=== PATIENT | male | born 1980 | race Caucasian/White ===

== ENCOUNTER 2016-08-28 19:07 | Emergency (ER) | payer OTHER ==
--- NOTE | 2016-08-28 19:44 | EDPHY ---
H & P Stated Complaint: parathyroid surg - new meds causing neuro changes/decreased sleep Time Seen by Provider: 08/28/16 19:44 HPI/ROS: CHIEF COMPLAINT: Abnormal behavior since parathyroid surgery HISTORY OF PRESENT ILLNESS: The patient is brought to the ED by his parents with complaints of abnormal behavior since parathyroid surgery on 08/24. The patient does have a history of psychiatric illness. He is on lithium and Geodon. The patient reportedly has had insomnia over the past 2 nights. He has seemed more confused during the day. The patient reportedly has been drinking large quantities of water. The patient has not been using drugs or alcohol. The parents are his primary caregiver and are with the patient extensively. The patient has had no history of fall or trauma. The patient may have taken twice his typical daily dose of levothyroxine. The patient's pre surgery calcium levels were running in the 11.3-11.4 range. REVIEW OF SYSTEMS: A comprehensive 10 point review of systems is otherwise negative aside from elements mentioned in the history of present illness. Source: Patient Exam Limitations: No limitations - Medical/Surgical History Hx Asthma: No Hx Chronic Respiratory Disease: No Hx Diabetes: No Hx Cardiac Disease: No Hx Renal Disease: No Hx Cirrhosis: No Hx Alcoholism: No Hx HIV/AIDS: No Hx Splenectomy or Spleen Trauma: No Other PMH: BIPOLAR, HYPOTHYROID, parathyroidectomy - Social History Smoking Status: Current every day smoker - Physical Exam Exam: General Appearance: Alert, no distress Eyes: Pupils equal and round no pallor or injection ENT, Mouth: Mucous membranes moist Respiratory: There are no retractions, lungs are clear to auscultation Cardiovascular: Regular rate and rhythm Gastrointestinal: Abdomen is soft and nontender, no masses, bowel sounds normal Neurological: A&O, normal motor function, normal sensory exam, normal cranial nerves Skin: Surgical incision clean dry and intact Musculoskeletal: Neck is supple nontender Extremities: symmetrical, full range of motion Psychiatric: Patient is oriented X 3, flat affect, no suicidal or homicidal ideation Constitutional: Initial Vital Signs Temperature (C) 37.4 C 08/28/16 19:23 Heart Rate 118 H 08/28/16 19:23 Respiratory Rate 16 08/28/16 19:23 Blood Pressure 148/104 H 08/28/16 19:23 O2 Sat (%) 94 08/28/16 19:23 O2 Delivery Mode Room Air Allergies/Adverse Reactions: No Known Allergies Allergy (Verified 08/28/16 19:28) Home Medications: Medication Instructions Recorded Ergocalciferol [Vitamin D2 (*)] 50,000 unit PO Q7D 07/26/16 Levomefolate Calcium 15 mg PO DAILY 07/26/16 [l-Methylfolate Calcium] Levothyroxine [Synthroid 50 mcg 50 mcg PO DAILY06 07/26/16 (*)] [place] Carbonate ER [Lithobid 300 600 mg PO BID #0 tab 08/09/16 mg (*)] Ziprasidone HCl [Geodon] 80 mg PO BID #0 capsule 08/09/16 lamoTRIgine [LamICTAL 100 MG (*)] 300 mg PO HS #0 tab 08/09/16 CALCIUM 08/28/16 MAGNESIUM 08/28/16 Medical Decision Making ED Course/Re-evaluation: The patient presents to the ED with insomnia for the past 2 days after possibly doubling his dose of Synthroid. The patient has had some increased water intake as well as a history of psychiatric medication usage. In the ED, I did check the patient's calcium level given his recent parathyroid surgery and is normal. Additionally, his sodium is normal. The patient's lithium level is also not supratherapeutic. I find the patient's neurologic examination to be normal. He has no evidence of a postoperative infection. It is certainly possible he experienced some mild insomnia from doubling his Synthroid. At this point time I think that he can simply resume his regular dose of the medication. The patient will be discharged home from the emergency department with instructions to follow up with his primary care provider in the next 1-2 days for any unimproved symptoms. He should return to the ED for fever, vomiting, worsening symptoms or other concerns. The patient's parathyroid hormone level is within normal limits. Differential Diagnosis: Differential diagnosis considered includes lithium toxicity, psychogenic hyponatremia, hypocalcemia, hyperthyroidism - Data Points Laboratory Results: Laboratory Results 08/28/16 20:10 08/28/16 20:10 08/28/16 20:10 WBC 15.60 H 10^3/uL (3.80-9.50) RBC 4.84 10^6/uL (4.40-6.38) Hgb 14.0 g/dL (13.7-17.5) Hct 41.7 % (40.0-51.0) MCV 86.2 fL (81.5-99.8) MCH 28.9 pg (27.9-34.1) MCHC 33.6 g/dL (32.4-36.7) RDW 13.8 % (11.5-15.2) Plt Count 421 H 10^3/uL (150-400) MPV 9.9 fL (8.7-11.7) Neut % (Auto) 64.5 % (39.3-74.2) Lymph % (Auto) 26.3 % (15.0-45.0) [place] % (Auto) 6.9 % (4.5-13.0) Eos % (Auto) 1.5 % (0.6-7.6) Baso % (Auto) 0.5 % (0.3-1.7) Nucleat RBC Rel Count 0.0 % (0.0-0.2) Absolute Neuts (auto) 10.06 H 10^3/uL (1.70-6.50) Absolute Lymphs (auto) 4.11 H 10^3/uL (1.00-3.00) Absolute Monos (auto) 1.07 H 10^3/uL (0.30-0.80) Absolute Eos (auto) 0.23 10^3/uL (0.03-0.40) Absolute Basos (auto) 0.08 10^3/uL (0.02-0.10) Absolute Nucleated RBC 0.00 10^3/uL (0-0.01) Immature Gran % 0.3 % (0.0-1.1) Immature Gran # 0.05 10^3/uL (0.00-0.10) Sodium 140 mEq/L (134-144) Potassium 4.5 mEq/L (3.5-5.2) Chloride 104 mEq/L (97-110) Carbon Dioxide 22 mEq/l (22-31) Anion Gap 14 mEq/L (8-16) BUN 16 mg/dL (7-23) Creatinine 0.9 mg/dL (0.7-1.3) Estimated GFR > 60 Glucose 115 H mg/dL (70-100) Calcium 9.7 mg/dL (8.5-10.4) Magnesium 2.1 mg/dL (1.6-2.3) TSH 1.850 uIU/mL (0.465-4.680) Free T3 4.81 pg/mL (2.77-5.27) PTH Intact 25.4 pg/ml (10.8-79.4) [place] 0.3 L mEq/L (0.6-1.2) Departure - Departure Disposition: Home, Routine, Self-Care Clinical Impression: Bipolar 1 disorder, Schizophrenia, Altered mental status Condition: Good Instructions: Schizophrenia (ED) Additional Instructions: 1. Your laboratory testing is within normal limits. 2. Take your medications as prescribed in the normal dose. 3. Return to the ED for markedly worsening symptoms, fever, vomiting or other concerns. 4. Please follow up with your primary prescriber in the next several days for a recheck.
[2016-08-28 20:26] LABS: % IMMATURE GRANULYOCYTES 0.3 % (0.0-1.1); ABSOLUTE IMMATURE GRANULOCYTES 0.05 10^3/uL (0.00-0.10); ADD DIFF? NO; ADD MORPH? NO; ADD SCAN? NO; ATYPICAL LYMPHOCYTE FLAG 10 (0-99); FRAGMENT RBC FLAG 0 (0-99); HEMATOCRIT 41.7 % (40.0-51.0); LEFT SHIFT FLG 0 (0-99); LIPEMIA HEMOLYSIS FLAG 80 (0-99); MEAN CELL HEMOGLOBIN 28.9 pg (27.9-34.1); MEAN CELL HEMOGLOBIN CONCENTR. 33.6 g/dL (32.4-36.7); MEAN CELL VOLUME 86.2 fL (81.5-99.8); MEAN PLATELET VOLUME 9.9 fL (8.7-11.7); PLATELET CLUMPS FLAG 10 (0-99); PLATELET COUNT 421 10^3/uL (150-400); RED BLOOD CELL COUNT 4.84 10^6/uL (4.40-6.38); RED CELL DISTRIBUTION WIDTH 13.8 % (11.5-15.2)
[2016-08-28 20:46] LABS: ANION GAP 14 mEq/L (8-16); CALCIUM 9.7 mg/dL (8.5-10.4); CARBON DIOXIDE 22 mEq/l (22-31); CHLORIDE 104 mEq/L (97-110); CREATININE 0.9 mg/dL (0.7-1.3); GLOMERULAR FILTRATION RATE > 60; GLUCOSE 115 mg/dL (70-100); LITHIUM 0.3 mEq/L (0.6-1.2); MAGNESIUM 2.1 mg/dL (1.6-2.3); POTASSIUM 4.5 mEq/L (3.5-5.2); SODIUM 140 mEq/L (134-144)
[2016-08-28 20:57] LABS: PTH INTACT NO MINERALS 25.4 pg/ml (10.8-79.4)
[2016-08-28 22:05] VITALS: BP 137/86; PULSE 92; RESP 18; TEMP 98.6; O2SAT 95
== END 2016-08-28 22:04 | disposition home or self-care (01) ==
DX: F31.9 Bipolar disorder, unspecified (principal); F20.9 Schizophrenia, unspecified; R41.82 Altered mental status, unspecified; F17.200 Nicotine dependence, unspecified, uncomplicated
CPT/HCPCS: 84481-90

== ENCOUNTER 2016-09-10 13:24 | Inpatient (IN) | payer OTHER ==
[2016-09-10] MEDS: LITHIUM CARBONATE 300 MG CAP PO SCH ×2 (09:00→21:43)
[2016-09-10] MEDS ORDERED: IBUPROFEN 600 MG TAB PO ONE (15:02)
[2016-09-10] MEDS ORDERED: NS 1,000 ML IV ONE (15:04)
--- NOTE | 2016-09-10 15:06 | EDPHY ---
H & P HPI/ROS: Chief complaint. wants psych evaluation HPI. 35-year-old male with history of schizophrenia and bipolar illness with [facility]. He is here with his mom who says for the last several days he has had anxiety and it is hard to make decisions. He becomes agitated. The patient denies suicide or homicidal ideation. He says he is not sick no fever cough. The mom is concerned about medications and that the patient seems to be becoming unstable again at. ROS Constitutional. no fever/chills, no weakness Eyes. no problems with vision ENT. no sore throat, no nasal drainage Cardiovascular. no chest pain Respiratory. no shortness of breath, no cough Abdominal. no abdominal pain, no nausea/vomiting, no diarrhea . no problems urinating MS. no calf pain/swelling, no neck/back pain, no joint pain Skin. no rash Lymph. no swollen glands Neuro. Agitated, hard to make decisions, anxious Past Medical/Surgical History: Past medical history significant for bipolar, hypothyroid, parathyroidectomy, psychosis, schizophrenia, pseudoseizures Social History: Single, daily smoker, no alcohol Smoking Status: Current every day smoker Physical Exam: General Appearance: Alert well-developed male mild distress vital signs show heart rate 123 blood pressure 157/110 Eyes: Pupils equal and round no pallor or injection. ENT, Mouth: Mucous membranes are moist. Respiratory: There are no retractions, lungs are clear to auscultation. Cardiovascular: Regular rate and rhythm. Gastrointestinal: Abdomen is soft and nontender, no masses, bowel sounds normal. Neurological: Awake and alert, sensory and motor exams grossly normal. Skin: Warm and dry, no rashes. Musculoskeletal: Neck is supple nontender. Extremities symmetrical, full range of motion. Psychiatric: Patient is oriented X 3, there is no agitation. Constitutional: Initial Vital Signs Temperature (C) 37 C 09/10/16 13:30 Heart Rate 123 H 09/10/16 13:30 Respiratory Rate 22 H 09/10/16 13:30 Blood Pressure 157/110 H 09/10/16 13:30 O2 Sat (%) 98 09/10/16 13:30 O2 Delivery Mode Room Air Allergies/Adverse Reactions: No Known Allergies Allergy (Verified 09/10/16 13:26) Home Medications: Medication Instructions Recorded Ergocalciferol [Vitamin D2 (*)] 50,000 unit PO Q7D 11/29/16 Levomefolate Calcium 15 mg PO DAILY 07/26/16 [l-Methylfolate Calcium] Levothyroxine [Synthroid 50 mcg 50 mcg PO DAILY06 07/26/16 (*)] [place] Carbonate ER [Lithobid 300 600 mg PO BID #0 tab 08/09/16 mg (*)] Ziprasidone HCl [Geodon] 80 mg PO BID #0 capsule 08/09/16 lamoTRIgine [LamICTAL 100 MG (*)] 300 mg PO HS #0 tab 08/09/16 CALCIUM 08/28/16 MAGNESIUM 08/28/16 Ativan 09/10/16 Levomefolate/Algal Oil 1 each PO 09/10/16 [[place]-Algal Oil 7.5 mg Cap] RESTORIL 09/10/16 Medical Decision Making - Diagnostics EKG Interpretation: EKG interpreted by me shows sinus tachycardia with normal interval and axis. QRS normal there is no significant ST elevation or depression. No arrhythmia. Ventricular response is 108 Procedures: IV normal saline. Initial 1 L of saline ordered ED Course/Re-evaluation: Re-evaluation at 4:40 p.m.. Patient is stable. Patient and I discussed his labs. We agreed on a mental health evaluation. Mental Health is called to evaluate Mental health has evaluated the patient and then they feel that he is gravely disabled. We have put the patient on an M1 hold and they a will admit him to [facility] Differential Diagnosis: Substance intoxication, withdrawal, exacerbation of chronic mental health issues - Data Points Laboratory Results: Laboratory Results 09/10/16 15:15 09/10/16 15:15 09/10/16 09/10/16 16:15 15:15 WBC 17.65 H 10^3/uL (3.80-9.50) RBC 4.71 10^6/uL (4.40-6.38) Hgb 14.0 g/dL (13.7-17.5) Hct 41.1 % (40.0-51.0) MCV 87.3 fL (81.5-99.8) MCH 29.7 pg (27.9-34.1) MCHC 34.1 g/dL (32.4-36.7) RDW 13.3 % (11.5-15.2) Plt Count 488 H 10^3/uL (150-400) MPV 9.5 fL (8.7-11.7) Neut % (Auto) 73.5 % (39.3-74.2) Lymph % (Auto) 20.2 % (15.0-45.0) [place] % (Auto) 4.5 % (4.5-13.0) Eos % (Auto) 1.0 % (0.6-7.6) Baso % (Auto) 0.5 % (0.3-1.7) Nucleat RBC Rel Count 0.0 % (0.0-0.2) Absolute Neuts (auto) 12.96 H 10^3/uL (1.70-6.50) Absolute Lymphs (auto) 3.56 H 10^3/uL (1.00-3.00) Absolute Monos (auto) 0.80 10^3/uL (0.30-0.80) Absolute Eos (auto) 0.18 10^3/uL (0.03-0.40) Absolute Basos (auto) 0.09 10^3/uL (0.02-0.10) Absolute Nucleated RBC 0.00 10^3/uL (0-0.01) Immature Gran % 0.3 % (0.0-1.1) Immature Gran # 0.06 10^3/uL (0.00-0.10) VBG Lactic Acid 1.3 mmol/L (0.7-2.1) Sodium 141 mEq/L (134-144) Potassium 4.7 mEq/L (3.5-5.2) Chloride 104 mEq/L (97-110) Carbon Dioxide 23 mEq/l (22-31) Anion Gap 14 mEq/L (8-16) BUN 17 mg/dL (7-23) Creatinine 1.0 mg/dL (0.7-1.3) Estimated GFR > 60 Glucose 95 mg/dL (70-100) Calcium 10.1 mg/dL (8.5-10.4) TSH 1.320 uIU/mL (0.465-4.680) Urine Opiates Screen NEGATIVE (NEGATIVE) Acetaminophen < 10 L mcg/mL (10.0-30.0) Urine Barbiturates NEGATIVE (NEGATIVE) Ur Phencyclidine Scrn NEGATIVE (NEGATIVE) Ur Amphetamine Screen NEGATIVE (NEGATIVE) U Benzodiazepines Scrn NON-NEGATIVE H (NEGATIVE) [place] 0.8 mEq/L (0.6-1.2) Urine Cocaine Screen NEGATIVE (NEGATIVE) U Marijuana (THC) Screen NEGATIVE (NEGATIVE) Ethyl Alcohol < 10 mg/dL (0-10) Medications Given: Discontinued Medications Sodium Chloride (Ns) 1,000 mls @ 0 mls/hr IV ONCE ONE PRN Reason: Wide [place] Stop: 09/10/16 15:05 Last Admin: 09/10/16 15:25 Dose: 1,000 mls Departure - Departure Disposition: [facility] IP Clinical Impression: Acute psychosis Schizophrenia Qualifiers: Schizophrenia type: other Qualifier Code: (F20.89) Other schizophrenia Condition: Fair
[2016-09-10 15:33] LABS: % IMMATURE GRANULYOCYTES 0.3 % (0.0-1.1); ABSOLUTE IMMATURE GRANULOCYTES 0.06 10^3/uL (0.00-0.10); ADD DIFF? NO; ADD MORPH? NO; ADD SCAN? NO; ATYPICAL LYMPHOCYTE FLAG 0 (0-99); FRAGMENT RBC FLAG 0 (0-99); HEMATOCRIT 41.1 % (40.0-51.0); LEFT SHIFT FLG 0 (0-99); LIPEMIA HEMOLYSIS FLAG 90 (0-99); MEAN CELL HEMOGLOBIN 29.7 pg (27.9-34.1); MEAN CELL HEMOGLOBIN CONCENTR. 34.1 g/dL (32.4-36.7); MEAN CELL VOLUME 87.3 fL (81.5-99.8); MEAN PLATELET VOLUME 9.5 fL (8.7-11.7); PLATELET CLUMPS FLAG 0 (0-99); PLATELET COUNT 488 10^3/uL (150-400); RED BLOOD CELL COUNT 4.71 10^6/uL (4.40-6.38); RED CELL DISTRIBUTION WIDTH 13.3 % (11.5-15.2)
--- NOTE | 2016-09-10 15:36 | CPEKG ---
Heart Rate: 108 RR Interval: 556 P-R Interval: 156 QRSD Interval: 86 QT Interval: 344 QTC Interval: 461 P [place]: 69 QRS [place]: 85 T Wave [place]: 41 EKG Severity - BORDERLINE ECG - EKG Impression: SINUS TACHYCARDIA EKG Impression: PROBABLE LEFT ATRIAL ABNORMALITY Electronically Signed By: Chuck Novoa 10-Sep-2016 17:24:23
[2016-09-10 16:11] LABS: ANION GAP 14 mEq/L (8-16); CALCIUM 10.1 mg/dL (8.5-10.4); CARBON DIOXIDE 23 mEq/l (22-31); CHLORIDE 104 mEq/L (97-110); ETHANOL SERUM < 10 mg/dL (0-10); GLOMERULAR FILTRATION RATE > 60; GLUCOSE 95 mg/dL (70-100); LITHIUM 0.8 mEq/L (0.6-1.2); POTASSIUM 4.7 mEq/L (3.5-5.2); SODIUM 141 mEq/L (134-144)
[2016-09-10] MEDS ORDERED: NICOTINE POLACRILEX 2 MG GUM B PRN (21:08)
[2016-09-10] MEDS ORDERED: MAGNESIUM HYDROXIDE 30 ML UDCUP PO PRN (21:08)
[2016-09-10] MEDS ORDERED: ACETAMINOPHEN 325 MG TAB PO PRN (21:08)
[2016-09-10] MEDS ORDERED: MAG HYDROX/AL HYDROX/SIMETH 30 ML UDCUP PO PRN (21:08)
[2016-09-10] MEDS ORDERED: OLANZapine DISINTEGR 10 MG TAB PO PRN (21:08)
[2016-09-10] MEDS ORDERED: LORazepam 0.5 MG TAB PO PRN (21:08)
[2016-09-10] MEDS: ZIPRASIDONE HCL 40 MG CAP PO SCH (21:43)
[2016-09-10] MEDS: lamoTRIgine 100 MG TAB PO SCH (21:43)
[2016-09-11] MEDS ORDERED: MAG HYDROX/AL HYDROX/SIMETH 30 ML UDCUP PO PRN (00:42)
[2016-09-11] MEDS ORDERED: OLANZapine DISINTEGR 10 MG TAB PO PRN (00:42)
[2016-09-11] MEDS ORDERED: NICOTINE POLACRILEX 2 MG GUM B PRN (00:42)
[2016-09-11] MEDS ORDERED: LORazepam 0.5 MG TAB PO PRN (00:42)
[2016-09-11] MEDS ORDERED: MAGNESIUM HYDROXIDE 30 ML UDCUP PO PRN (00:42)
[2016-09-11] MEDS ORDERED: ACETAMINOPHEN 325 MG TAB PO PRN (00:42)
[2016-09-11] MEDS ORDERED: LEVOTHYROXINE 50 MCG TAB PO SCH (06:00)
[2016-09-11] MEDS: LEVOMEFOLATE CALCIUM 15 MG PO SCH (08:44)
[2016-09-11] MEDS: ZIPRASIDONE HCL 40 MG CAP PO SCH ×2 (08:51→20:54)
[2016-09-11] MEDS: lamoTRIgine 100 MG TAB PO SCH ×2 (08:51→20:54)
[2016-09-11] MEDS: LEVOTHYROXINE 50 MCG TAB PO SCH (08:53)
[2016-09-11] MEDS ORDERED: LEVOMEFOLATE CALCIUM 15 MG PO SCH (09:00)
--- NOTE | 2016-09-11 10:25 | GCON ---
[f rep st] CONSULTATION DATE OF CONSULTATION: 09/11/2016 REFERRING PHYSICIAN: Shi Parker MD REASON FOR CONSULTATION: Medical evaluation in the psychiatric unit. HISTORY OF PRESENT ILLNESS: This is a 35-year-old male with a known psychiatric history of bipolar t ype 1, psychosis, and schizophrenia, who possibly stopped taking his medications and became more agit ated and confused. His mother presented him for evaluation and he was admitted through the emergency department to the behavioral health unit. I am interviewing the patient on the psychiatric unit. Loc lindsay is mildly confused, says he has memory problems and cannot remember, but admits that he probably st opped taking his medications. Medically, he denies any recent or acute illness. He denies sore throat, cough, fever, shortness of breath, or chest pain. He denies any head trauma, recent seizures. PAST MEDICAL HISTORY: 1. Bipolar disorder type 1. 2. Schizophrenia. 3. History of parathyroid disease and a recent parathyroidectomy in the last few months. The patien ronaldo cannot tell me where or when this occurred, but there is an apparent scar over his thyroid for this problem. 4. He has a history of alcohol abuse. PAST SURGICAL HISTORY: Recent parathyroid adenoma removal. Time and place of this surgery is unknow n. ALLERGIES: None. FAMILY HISTORY: Positive for alcoholism, depression, and bipolar disorder. SOCIAL HISTORY: Tobacco is used, approximately 1/2-pack cigarettes a day. Drugs: The patient denie s regular drug abuse, but does use marijuana on occasion. He denies the use of cocaine. He also den ies the use of LSD or methamphetamine. The tox screen was positive for benzodiazepines on admission. REVIEW OF SYSTEMS: A 10-point review of systems is entirely negative. He specifically denies a rece nt cold, cough, sinus infection, sore throat, fever, chills, sweats. He admits to eating well. Thony es any chronic cardiovascular, pulmonary, or gastrointestinal disorders. MEDICATIONS: Listed on the EMR. His usual outpatient medications would include Geodon, Lamictal, li thium, Synthroid, and methyl folate. PHYSICAL EXAMINATION: GENERAL: This is a pleasant, quiet gentleman, who appears in no distress. He is alert and oriented x3, but cannot give specific answers to medical questions. VITAL SIGNS: He i s mildly hypertensive with blood pressures between 150 and 160 over 80 to 100 diastolic. Blood press ure was higher on admission and is declining slightly. He is afebrile. He has a mild resting tachyc ardia. Respirations are normal and he is afebrile. HEENT: Shows his tympanic membranes are ochoa bi laterally. Throat is benign, with the tongue and buccal mucosa appearing normal, without trauma. Th ere is no erythema or inflammation or exudate. Nasal passages are clear without drainage. Teeth are in good repair. NECK: Supple without meningismus. Neck region shows a 2 cm scar over the thyroid region, which is healing well and nontender. Thyroid cannot be palpated. There are no areas of tend erness or adenopathy. CHEST WALL: Nontender to palpation. LUNGS: Clear to P and A without wheezin g or rales. HEART: Singular S1 and S2. No murmur, gallop, or rub. He is in a regular rate and rhy thm. ABDOMEN: Slightly overweight. Normoactive bowel sounds. No masses, tenderness, or organomega ly. The liver is nontender and the right upper quadrant nontender. EXTREMITIES: No edema, cyanosis , clubbing. Joints are without inflammation or signs of trauma. No track carrizales are noted on the ski n. NEUROLOGIC: He is an oriented x3 male. Cranial nerves 2-12 are intact to specific testing. LABORATORY DATA: Shows a mild elevated white count at 17,000. Lactic acid was normal on admission. Chemistry panel is also normal and a TSH is normal at 1.3. Calcium is within normal range also at 1 0.1. Toxicology is positive for benzodiazepines, but otherwise negative for alcohol, acetaminophen. His lithium is within the normal range at 0.8. ASSESSMENT: 1. Acute psychiatric disorder with agitation and some paranoid delusions. This is likely secondary to noncompliance with his medication. The patient has been admitted on the behavioral health unit. 2. Mild hypertension. This is unexplained as he has no history of the same. He also has a resting tachycardia with that. This could be secondary to agitation, although at this time the patient haim crowley does not appear to be agitated. For the next 24 hours, I would watch his blood pressure, repea t it, and will treat if necessary. 3. Leukocytosis with an elevated WBC of 17,000. This is also unexplained as he is afebrile and yareli quintero does not appear to have any acute infection. It could be an acute stress response, a leukemoi d response. I suggest we watch his temperature, along with his blood pressure, and we will repeat a CBC and I will follow up. A flu swab will also be obtained to just assure that we do not have an acu te flu illness on the unit. 4. He has a history of parathyroid disease. Today, his calcium is normal and his TSH is normal. I think these problems are now stable. 5. History of medical noncompliance. 6. The patient is medically cleared for his stay on the behavioral health unit. I will follow along with you regarding his hypertension, tachycardia, leukocytosis, and follow up on the flu swab result s. TIME: This consultation required greater than 40 minutes. /[id number]/MODL
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
[2016-09-11] MEDS: LITHIUM CARBONATE 300 MG CAP PO SCH (20:53)
[2016-09-12] MEDS: lamoTRIgine 100 MG TAB PO SCH ×2 (08:39→17:27)
[2016-09-12] MEDS: LITHIUM CARBONATE 300 MG CAP PO SCH ×2 (08:39→17:27)
[2016-09-12] MEDS: ZIPRASIDONE HCL 40 MG CAP PO SCH ×2 (08:39→17:28)
[2016-09-12 09:19] LABS: % IMMATURE GRANULYOCYTES 0.3 % (0.0-1.1); ABSOLUTE IMMATURE GRANULOCYTES 0.04 10^3/uL (0.00-0.10); ADD DIFF? NO; ADD MORPH? NO; ADD SCAN? NO; ATYPICAL LYMPHOCYTE FLAG 10 (0-99); FRAGMENT RBC FLAG 0 (0-99); HEMATOCRIT 41.8 % (40.0-51.0); HEMOGLOBIN 13.2 g/dL (13.7-17.5); LEFT SHIFT FLG 0 (0-99); LIPEMIA HEMOLYSIS FLAG 80 (0-99); MEAN CELL HEMOGLOBIN 28.9 pg (27.9-34.1); MEAN CELL HEMOGLOBIN CONCENTR. 31.6 g/dL (32.4-36.7); MEAN CELL VOLUME 91.7 fL (81.5-99.8); PLATELET CLUMPS FLAG 0 (0-99); PLATELET COUNT 433 10^3/uL (150-400); RED BLOOD CELL COUNT 4.56 10^6/uL (4.40-6.38); RED CELL DISTRIBUTION WIDTH 13.7 % (11.5-15.2)
[2016-09-12] MEDS: LEVOTHYROXINE 50 MCG TAB PO SCH (10:34)
--- NOTE | 2016-09-12 10:49 | SOAPPROG ---
SOAP Progress Note Assessment/Plan: Assessment: Pt is a 35 y/o S male with a sx of Schizophrenia (although he has been dx with Bipolar D/O and SAD) who was brought to the ED by his parents for increased confusion and a medication evaluation. Pt was put on an M1 for grave disability. He is reporting command AH. Plan:Pt is on maximum dose of Geodon will reach out to Dr Paul who treats pt to get med suggestions will check VPA and Lamotrigine levels in am 09/12/16 10:44 Subjective: "The meds make me tired." Objective: Vital Signs Temp Pulse Resp BP Pulse Ox 36.7 C 112 H 16 113/79 97 09/12/16 05:55 09/12/16 05:55 09/12/16 05:55 09/12/16 05:55 09/12/16 05:55 Laboratory Results 09/12/16 03:05 Pt is A+O x4 lying in bed, not attending groups mood-"A little depressed" affect-flat +AH but reports they are decreased + thought blocking denies S/H I denies Par I speech-monotone thoughts-thought blocking slept 7 hours energy level-varies memory/conc-impaired due to psychosis no SANDIP I/J-fair - Time Spent With Patient Time Spent With Patient: 20' - Pending Discharge Pending Discharge Within 24 Hours: No Pending Discharge Within 48 Hours: No ICD10 Worksheet Patient Problems: Problems Problem Status Diagnosed Acute psychosis Acute Schizophrenia Acute Altered mental status Acute Bipolar 1 disorder Acute
[2016-09-12] MEDS: LEVOMEFOLATE CALCIUM 15 MG PO SCH (10:53)
--- NOTE | 2016-09-12 15:27 | HOSPPROG ---
Hospitalist Progress Note Assessment/Plan: 35-year-old male admitted to the behavioral health unit. Initial laboratories noted a leukocytosis and hypertension. The flu screen was negative in the WBC is now declining nicely blood pressure is declining also without treatment. A strep screen has been ordered to assure that there is no acute infection. Patient is afebrile. I will review the results of the strep screen and follow his blood pressure again. I will follow along with you. No antibiotics will be ordered at this time or antihypertensives. Objective: Vital Signs Temp Pulse Resp BP Pulse Ox 36.6 C 101 H 13 129/83 H 98 09/12/16 11:44 09/12/16 11:44 09/12/16 11:44 09/12/16 11:44 09/12/16 11:44 Laboratory Results 09/12/16 03:05 ICD10 Worksheet Patient Problems: Problems Problem Status Diagnosed Acute psychosis Acute Schizophrenia Acute Altered mental status Acute Bipolar 1 disorder Acute
[2016-09-13] MEDS: LEVOMEFOLATE CALCIUM 15 MG PO SCH (08:45)
[2016-09-13] MEDS: ZIPRASIDONE HCL 40 MG CAP PO SCH ×2 (08:45→20:42)
[2016-09-13] MEDS: lamoTRIgine 100 MG TAB PO SCH ×2 (08:45→20:42)
[2016-09-13] MEDS: LITHIUM CARBONATE 300 MG CAP PO SCH ×2 (08:45→20:43)
[2016-09-13] MEDS: LEVOTHYROXINE 50 MCG TAB PO SCH (08:56)
[2016-09-13 09:01] LABS: LITHIUM 0.5 mEq/L (0.6-1.2)
--- NOTE | 2016-09-13 10:54 | SOAPPROG ---
SOAP Progress Note Assessment/Plan: Assessment: Pt is a 35 y/o S male with a sx of Schizophrenia (although he has been dx with Bipolar D/O and SAD) who was brought to the ED by his parents for increased confusion and a medication evaluation. Pt was put on an M1 for grave disability. He is reporting command AH. 09/13/16-pt will sign in vol and reports much decreased AH and seems better Plan:Pt is on maximum dose of Geodon will reach out to Dr Paul who treats pt to get med suggestions will check VPA and Lamotrigine levels drawn pt will sign in vol 09/13/16 10:51 Subjective: "Better." Objective: Vital Signs Temp Pulse Resp BP Pulse Ox 36.7 C 97 16 121/77 H 98 09/13/16 00:30 09/13/16 00:30 09/13/16 00:30 09/13/16 00:30 09/13/16 00:30 Laboratory Results 09/12/16 03:05 Pt is A+O x4 pacing the halls mood-"better" affect-flat much decreased AH thoughts-poverty of thought content speech-monotone slept 6.5 hours appetite-wnl denies VH No delusions memory/conc-fair no SANDIP no S/H I I/J-fair - Time Spent With Patient Time Spent With Patient: 20' - Pending Discharge Pending Discharge Within 24 Hours: No Pending Discharge Within 48 Hours: Yes Pending Discharge Date: 09/15/16 Pending Discharge Time: 11:00 ICD10 Worksheet Patient Problems: Problems Problem Status Diagnosed Acute psychosis Acute Schizophrenia Acute Altered mental status Acute Bipolar 1 disorder Acute
[2016-09-14 01:40] VITALS: BP 132/85; PULSE 113; RESP 16; TEMP 98.1; O2SAT 96
[2016-09-14] MEDS: ZIPRASIDONE HCL 40 MG CAP PO SCH (08:48)
[2016-09-14] MEDS: lamoTRIgine 100 MG TAB PO SCH (08:48)
[2016-09-14] MEDS: LITHIUM CARBONATE 300 MG CAP PO SCH (08:49)
[2016-09-14] MEDS: LEVOMEFOLATE CALCIUM 15 MG PO SCH (08:49)
[2016-09-14] MEDS: LEVOTHYROXINE 50 MCG TAB PO SCH (08:58)
--- NOTE | 2016-09-14 11:57 | BDS ---
[ rep st] BEHAVIORAL HEALTH DISCHARGE SUMMARY CHIEF COMPLAINT: "I am feeling a little weird." When asked why the patient came to the hospital, he states, "I forgot." HISTORY OF PRESENT ILLNESS: The patient is a 35-year-old single male who had a previous admission on [address] from 07/27/2016 to 08/09/2016. The patient reports his parents who reside in [place] have been staying with him since then on and off. The patient's parents brought the patient to the ED due to concerns of decompensation and fear that his medications were not working properly. It is unclear whether he missed some doses. The patient had difficulty responding to the [facility] termite control representative and demonstrated pressured speech and confusion. He could not fill out the BDI or other scales. He has been trying to drive himself in places while confused and distracted, and his parents took his keys away. DIAGNOSES ON ADMISSION: Chronic schizophrenia with acute exacerbation; history of alcohol use disorder, moderate; history of parathyroid surgery recently. He is currently on Synthroid. [place] V on admission was 20. HOSPITAL COURSE: The patient was continued on his outpatient medications, lithium 600 mg twice daily, Geodon 80 mg twice daily, and Lamictal 200 mg twice daily. At first, the patient was reporting command auditory hallucinations, but as he stayed, over the next couple days, he reported the voices had decreased only to occasional. The patient denied suicidal ideation throughout his hospitalization. He denied paranoid ideation throughout his hospitalization. He was eating and sleeping well. He isolated and had a flat affect consistent with schizophrenia, and did not attend groups and often paced the halls. His parents visited, and they felt he was ready for discharge on the day of discharge. He signed in voluntarily when his M1 , as he did not meet criteria for a cert. The patient requested discharge and denied any side effects from medications. Stated he was feeling back to himself. MENTAL STATUS ON DISCHARGE: The patient is alert and oriented x4. Mood is euthymic. Affect is constricted. Patient denies auditory or visual hallucinations. Denies suicidal or homicidal ideation. Denies paranoid ideation. Reports sleep, appetite, and energy level are normal. Thoughts: Poverty of thought content. Speech is monotone. Memory is fair. Insight and judgment are fair. DIAGNOSIS ON DISCHARGE: Chronic schizophrenia with acute exacerbation; history of alcohol use disorder, moderate; history of parathyroid surgery recently. He is currently on Synthroid. [place] V on admission was 20. Global Assessment of Functioning on discharge is 50. DISCHARGE MEDICATIONS: [place] 600 mg twice daily, Geodon 80 mg twice daily, Lamictal 200 mg twice daily. DISCHARGE PLAN: Patient will follow up with Dr. Paul. He will be picked up by his parents, and will be watched by his parents and will return to his apartment. Patient is medically and psychiatrically stable for discharge and was discharged voluntarily. /[id number]/MODL MTDD
== END 2016-09-14 12:45 | disposition home or self-care (01) | DRG 885 ==
LOC: BBEH 09-11 00:25
PROVIDERS: ADMIT Psychiatry & Neurology Psychiatry; ATTEND Psychiatry & Neurology Psychiatry
DX: F23 Brief psychotic disorder (principal); F31.9 Bipolar disorder, unspecified; E03.9 Hypothyroidism, unspecified; F17.210 Nicotine dependence, cigarettes, uncomplicated; F10.21 Alcohol dependence, in remission; Z91.128 Patient's intentional underdosing of medication regimen for other reason
CPT/HCPCS: 80175-90; 80305; G0480

== ENCOUNTER 2017-06-08 12:17 | Inpatient (IN) | payer OTHER ==
[2017-06-08 12:48] LABS: % IMMATURE GRANULYOCYTES 0.3 % (0.0-1.1); ABSOLUTE IMMATURE GRANULOCYTES 0.05 10^3/uL (0.00-0.10); ADD DIFF? NO; ADD MORPH? NO; ADD SCAN? NO; ATYPICAL LYMPHOCYTE FLAG 20 (0-99); FRAGMENT RBC FLAG 10 (0-99); HEMATOCRIT 42.5 % (40.0-51.0); HEMOGLOBIN 14.3 g/dL (13.7-17.5); LEFT SHIFT FLG 0 (0-99); LIPEMIA HEMOLYSIS FLAG 80 (0-99); MEAN CELL HEMOGLOBIN 30.1 pg (27.9-34.1); MEAN CELL HEMOGLOBIN CONCENTR. 33.6 g/dL (32.4-36.7); MEAN CELL VOLUME 89.5 fL (81.5-99.8); MEAN PLATELET VOLUME 9.9 fL (8.7-11.7); PLATELET CLUMPS FLAG 30 (0-99); PLATELET COUNT 480 10^3/uL (150-400); RED BLOOD CELL COUNT 4.75 10^6/uL (4.40-6.38); RED CELL DISTRIBUTION WIDTH 13.2 % (11.5-15.2)
--- NOTE | 2017-06-08 13:04 | EDPHY ---
General - History Smoking Status: Current every day smoker Narrative: CHIEF COMPLAINT: M1, decompensated bipolar HISTORY OF PRESENT ILLNESS: Patient presents on an M1 hold due to reports of bipolar disorder with decompensation acute psychosis. Patient denies any of this and feels that he has been doing well, but there is documentation from his psychiatrist and family that he has been manic, presenting with normal speech, and not taking his medications. Patient says that he has no complaints of any kind and feels that he has done well on only missed 1 dose of his lithium with the past 2 weeks. He denies any suicidal ideation. He denies a sleepless nights. He denies any complaints of any kind. No modifying factors from the patient. He arrives on an M1 hold and is calm and cooperative. PSYCHIATRIC DIAGNOSES: Bipolar disorder PRIOR PSYCHIATRIC EVALUATIONS: Multiple. Most recently June 2016 M1/DETAINER: Dr. Paul today at 9:30 a.m. REVIEW OF SYSTEMS: Ten systems reviewed and are negative unless otherwise noted in the HPI EXAMINATION General Appearance: Alert, no distress, relaxed, normal speech Head: normocephalic, atraumatic Eyes: Pupils equal and round, no conjunctival pallor or injection ENT, Mouth: Mucous membranes moist. Uvula midline. Normal speech. No trismus. Neck: Normal inspection, supple, non-tender Respiratory: Lungs are clear to auscultation Cardiovascular: Regular rate and rhythm. No murmur Gastrointestinal: Abdomen is soft and nontender Back: non-tender, no bony abnormalities Neurological: GCS 15. A&O, nonfocal, normal gait. Strength is symmetric. No pronator drift. No dysmetria Skin: Warm and dry, no rash Extremities: Nontender, no pedal edema Psychiatric: Flat affect. Denies suicidal ideation or homicidal ideation. DIFFERENTIAL DIAGNOSES: Including but not limited to bipolar disorder with decompensation, manic episode , acute psychosis, dehydration, sub therapeutic lithium MDM: 1:00 p.m. M1 hold due to bipolar disorder with acute decompensation per his psychiatrist. The patient appears calm and cooperative at this time. Parents are not at bedside at this time. I will discuss further with them when they return. Psychiatrist expressed concern due to abnormal speech during his examination, thus I will obtain a CT scan of the head. I do not appreciate this at this time. Laboratory studies are pending for clearance. [place] level pending. 1:47 p.m. Laboratory studies are negative for any significant abnormalities. There is a mild leukocytosis. [place] level is therapeutic. Lamictal level is a send out referral laboratory study. CT scan pending. 2:[address] p[address] Notified by radiologist. CT scan unremarkable for any acute findings. 2:30 p.m. EPS has been notified. Patient will be evaluated for inpatient placement. 4:30 p.m. Patient still awaiting evaluation. 5:15 p.m. . at this time I have discussed the care with Dr. Fitzgerald. He will assume care the patient. The patient is pending evaluation and placement. He is in no acute distress. SUPERVISION: Patient was evaluated in conjunction with the supervising physician. Please see their note for details. (Edy Hernandez) Medical Decision Makin:50 p.m. the patient has been accepted by [address]. I will complete transfer paperwork. (José Fitzgerald) - Objective Vital Signs: Initial Vital Signs Temperature (C) 97.7 F 06/08/17 12:21 Heart Rate 99 06/08/17 12:21 Respiratory Rate 18 06/08/17 12:21 Blood Pressure 124/86 H 06/08/17 12:21 O2 Sat (%) 97 06/08/17 12:21 O2 Delivery Mode Room Air Allergies/Adverse Reactions: No Known Allergies Allergy (Verified 09/10/16 13:26) Home Medications: Medication Instructions Recorded Benztropine Mesylate [Cogentin 1 mg PO BID 06/08/17 (RX)] Benztropine Mesylate [Cogentin 1 mg PO BID PRN 06/08/17 (RX)] Cholecalciferol Vit D3 [Vitamin D3 1,000 units PO DAILY 06/08/17 (*)] LORazepam [Ativan (*)] 1 mg PO HS 06/08/17 Levomefolate/Algal Oil 1 each PO DAILY 06/08/17 [[place]pl[place]-Algal Oil 15 mg Capsule] Levothyroxine [Synthroid 50 mcg 50 mcg PO DAILY06 06/08/17 (*)] [place] Carbonate ER [Eskalith Cr 900 mg PO BID 06/08/17 450 mg (*)] Propranolol HCl [Inderal 40mg (*)] 40 mg PO BID 06/08/17 Venlafaxine Xr [Effexor Xr] 300 mg PO DAILY 06/08/17 lamoTRIgine [LamICTAL 100 MG (*)] 525 mg PO HS 06/08/17 Laboratory Results: Laboratory Results 06/08/17 12:40 06/08/17 12:40 Medications Given: Benztropine Mesylate (Cogentin) 1 mg PO BID [facility] Stop: 12/05/17 21:54 Last Admin: 06/09/17 08:33 Dose: 1 mg Cholecalciferol (Vitamin D) 1,000 units PO DAILY [facility] Stop: 12/06/17 08:59 Last Admin: 06/09/17 08:33 Dose: 1,000 units [place] Carbonate (Lithobid) 600 mg PO BID [facility] Stop: 12/05/17 21:54 Last Admin: 06/09/17 08:32 Dose: 600 mg Lorazepam (Ativan) 1 mg PO HS [facility] Stop: 12/05/17 21:54 Last Admin: 06/09/17 05:25 Dose: Not Given Miscellaneous Medication (Levomefolate/Algal Oil [[place]-Algal Oil 15 Mg Capsule ]) 1 each PO DAILY TARYN Stop: 12/06/17 08:59 Last Admin: 06/09/17 08:38 Dose: Not Given Propranolol HCl (Inderal) 40 mg PO BID [facility] Stop: 12/05/17 21:54 Last Admin: 06/09/17 08:32 Dose: 40 mg Risperidone (Risperdal) 1 mg PO BID [facility] Stop: 12/06/17 08:59 Last Admin: 06/09/17 08:33 Dose: 1 mg Venlafaxine HCl (Effexor Xr) 300 mg PO DAILY [facility] Stop: 12/06/17 08:59 Last Admin: 06/09/17 08:33 Dose: 300 mg Discontinued Medications Lamotrigine (Lamictal) 525 mg PO HS [facility]ARYN Stop: 12/05/17 21:54 Last Admin: 06/09/17 05:26 Dose: Not Given [place] Carbonate (Eskalith Cr) 900 mg PO BID [facility] Stop: 12/05/17 21:54 Last Admin: 06/09/17 05:26 Dose: Not Given Departure - Departure Disposition: [facility] IP Clinical Impression: Bipolar 1 disorder, Acute psychosis Condition: Fair
[2017-06-08 13:06] LABS: ANION GAP 14 mEq/L (8-16); CALCIUM 10.1 mg/dL (8.5-10.4); CARBON DIOXIDE 22 mEq/l (22-31); CHLORIDE 104 mEq/L (97-110); CREATININE 0.8 mg/dL (0.7-1.3); ETHANOL SERUM < 10 mg/dL (0-10); GLOMERULAR FILTRATION RATE > 60; GLUCOSE 89 mg/dL (70-100); LITHIUM 0.6 mEq/L (0.6-1.2); POTASSIUM 4.5 mEq/L (3.5-5.2); SALICYLATE < 1.0 mg/dL (2.0-20.0); SODIUM 140 mEq/L (134-144)
[2017-06-08] MEDS ORDERED: BENZTROPINE MESYLATE 1 MG TAB PO PRN (21:55)
[2017-06-08] MEDS ORDERED: LITHIUM CARBONATE ER 450 MG TAB PO SCH (21:55)
[2017-06-08] MEDS ORDERED: MAGNESIUM HYDROXIDE 30 ML UDCUP PO PRN (21:55)
[2017-06-08] MEDS ORDERED: lamoTRIgine 100 MG TAB PO SCH ×2 (21:55→22:56)
[2017-06-08] MEDS ORDERED: LORazepam 0.5 MG TAB PO PRN (21:55)
[2017-06-08] MEDS ORDERED: NICOTINE POLACRILEX 2 MG GUM B PRN (21:55)
[2017-06-08] MEDS ORDERED: MAG HYDROX/AL HYDROX/SIMETH 30 ML UDCUP PO PRN (21:55)
[2017-06-08] MEDS ORDERED: ACETAMINOPHEN 325 MG TAB PO PRN (21:55)
[2017-06-09] MEDS: BENZTROPINE MESYLATE 1 MG TAB PO SCH ×3 (05:25→19:20)
[2017-06-09] MEDS: LORazepam 1 MG TAB PO SCH ×2 (05:25→19:20)
[2017-06-09] MEDS: PROPRANOLOL HCL 20 MG TAB PO SCH ×3 (05:25→19:20)
--- NOTE | 2017-06-09 07:43 | PDHOSCONS ---
Hospitalist Consult Hospitalist Consult: CC: Uncontrolled symptoms of bipolar disorder HISTORY: This patient with a long history of known bipolar disorder was having worsening symptoms but despite treatment. He came into the ER and has now been admitted to the mental health unit. I am asked by the mental health team to assist in the care of this patient on the Behavioral Health Unit. The patient states he has no particular symptoms of any physical illness at this time and feels quite well. His only issues are his thought disorder which she describes in terms consistent with his previous bipolar disorder. ROS: A comprehensive 10 system review revealed no other significant findings. There is a history of parathyroid disease which I presume was probably overactive parathyroid as he has had a parathyroidectomy. Past follow-up of that has been revealing of no persisting problem so he seems to be stable and he has no symptoms now that would suggest a parathyroid disorder. PAST MEDICAL HISTORY: Parathyroidectomy Bipolar disorder FAMILY MEDICAL HISTORY: No particular family history that he is aware of concern SOCIAL HISTORY: Not using significant alcohol or any street drugs MEDICATIONS: The patients list has been reconciled by our clinical pharmacist in the EMR. I have reviewed the list and ordered appropriate medicines. 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 The etiology of this is uncertain though I suspect it could possibly be related to his medications somehow. As this is chronic and stable and not associated with any symptoms are examination findings I would not do any further assessment at this time. PLANS: At this time no specific recommendations for any change in plan or any further diagnostic evaluations If the patient has any acute medical issues remain available for further consultation I have reviewed the patient's past medical records as part of this assessment, including previous hospitalization physician records as well as laboratory data from inpatient and outpatient.
[2017-06-09] MEDS: LITHIUM CARBONATE ER 300 MG TAB PO SCH ×2 (08:32→19:17)
[2017-06-09] MEDS: VENLAFAXINE XR 150 MG CAP PO SCH (08:33)
[2017-06-09] MEDS: CHOLECALCIFEROL VIT D3 1,000 UNITS TAB PO SCH (08:33)
[2017-06-09] MEDS: ALGAL OIL PO SCH (08:38)
[2017-06-09] MEDS: LEVOMEFOLATE PO SCH (08:38)
[2017-06-09] MEDS ORDERED: risperiDONE 1 MG TAB PO SCH (09:00)
[2017-06-09] MEDS: LEVOTHYROXINE 25 MCG TAB PO SCH (09:55)
--- NOTE | 2017-06-09 13:07 | BAPA ---
[f rep st] ADMISSION PSYCHIATRIC ASSESSMENT DATE OF SERVICE: 06/09/2017 CHIEF COMPLAINT: "I don't know why they sent me here. I'm doing fine." HISTORY OF PRESENT ILLNESS: Patient is a 36-year-old male with a history of bipolar disord er with recurrent psychosis, who presented to the emergency department on an M1 hold after being seen by his outpatient psychiatrist, Dr. Nj Paul. He apparently had been declining for several we eks, and Dr. Paul had been following him closely. He saw Dr. Paul yesterday and was irritabl e, disorganized, sarcastic, and uncooperative. Dr. Paul was concerned due to his recent increasi ng refusal of various aspects of his care and that he was also noncompliant with his medications, as this represented a significant change in his presentation. He also seemed to be somewhat paranoid, n ot wanting to work with Dr. Paul or with [facility] staff. They felt like they needed ext ra supervision for him and required extra staff presence. He felt that this was a high enough level of discomfort to place him on an M1 hold and bring him over for an inpatient evaluation. Dr. Anuradha montana spoke with me by phone this morning and stated that he believed that psychosis was encroaching, and was unclear whether this could be related to continued marijuana use or his natural underlying patho logy. Patient denies any marijuana use for several weeks, and his admitting urine drug screen was ne gative for all substances. He also states he has been taking his medications, though it is clear thr ough the records from [facility] that he has been inconsistent with this. The patient offers no complaints, stating he believes he is in his normal functional state and that he considers himself to be a sarcastic person, and that any comments he would have made to Dr. Paul are perfectly wit hin his normal repertoire of responses. Notes from [facility] and Dr. Paul indicate that the patient has demonstrated a familiar pattern of functional decline, not participating in groups or with his contractually agreed upon urine drug screens. The patient states that he believes these ar e unnecessary "because I'll just tell them if I use anything." His parents apparently came to town i n an unexpected visit to see how he is doing and stated that he seemed very disorganized and essentia lly could not understand what he was trying to tell them. They were also concerned and spoke with Dr Gogre Paul about this. PAST PSYCHIATRIC HISTORY: Significant for multiple previous admissions to this facility on to 08/09/2016, 09/12/2016 to 09/14/2016, and currently. He is followed by Dr. Paul and the tea at [facility]. He has been diagnosed in the past with bipolar disorder, but he also has had signs of schizophrenia, including auditory hallucinations and some prominent negative symptoms, such as ambivalence and autism, that are possibly consistent with an underlying thought disorder, as well . ALLERGIES: No known medical allergies. CURRENT MEDICATIONS: Cogentin 1 mg twice daily, vitamin D3 1000 units daily, Lamictal 525 mg q.h.s., Deplin 1 daily, Synthroid 50 mcg daily, lithium carbonate 600 mg b.i.d., lorazepam 1 mg q.h.s., prop ranolol 40 mg b.i.d., and venlafaxine XR 300 mg daily. PAST MEDICAL HISTORY: Significant for hyperparathyroidism with a parathyroidectomy approximately 6 m onths ago. SOCIAL HISTORY: The patient is single with no dependents. He lives in a supported housing [facility] in [place]. His parents are supportive and live in [place]. He has a history of up to daily mariju robert use and some more binge-type alcohol use in the past. He has no history of legal problems. ADMISSION LABORATORY: CBC shows a white count up at 14.61, platelets up at 480,000. Serum chemistri es are normal. Urine drug screen is negative for all substances. [place] level on admission was 0.6 . Lamictal level is pending at the time of this dictation. TSH is normal at 1.9. MENTAL STATUS EXAMINATION: A somewhat unkempt male, who is otherwise healthy appearing. Loc lindsay interacts well with the examiner, displaying a moderate level of psychomotor retardation, but overa ll calm and pleasant demeanor. He shakes my hand several times and makes reasonable eye contact. Hi s affect is blunted to almost flat. His mood is described as "fine." His thought process is linear and goal directed. His thought content reveals some paranoia (stating that he does not trust his out patient treatment team) and some possible hypervigilance. He is alert and oriented to person, place, time, and situation, and his sensorium is clear. His intellect appears to be brinmcl-it-lvmuv avera ge, as evidenced by his educational history, fund of knowledge, and vocabulary. He denies any though ts of suicide, homicide, or violence. His insight and judgment appear to be marginal. IMPRESSION: 1. Bipolar 1 disorder, most recent episode mixed, severe, with psychosis. 2. Possible schizoaffective disorder. 3. Recurrent illness. 4. Possible medication noncompliance. 5. Cannabis-use disorder, moderate. 6. Alcohol-use disorder, severity unknown. The patient is a pleasant 36-year-old male with a mix of mood and psychotic symptoms. It i s unclear whether psychosis is enduring or more directly linked to the mood disorder. It may be that he has more of a schizoaffective picture. He is not currently on an antipsychotic medication, as th e Geodon was tapered and discontinued by Dr. Paul at patient's request several months ago. Dr. Chao rubio would prefer the patient be restarted on Risperdal, and I will put this order in. Patient is ambivalent about this. The risks, benefits, and alternatives of Risperdal are reviewed with him. PLAN: 1. [facility] on an [facility]1 hold. 2. Continue outpatient medications with the addition of low-dose Risperdal. 3. Work with [facility] in order to provide stabilization and discharge planning. ESTIMATED LENGTH OF STAY: 5-7 days. /[id number]/MODL
[2017-06-09] MEDS: lamoTRIgine 100 MG TAB PO SCH (19:19)
[2017-06-09] MEDS: risperiDONE 1 MG TAB PO SCH (19:20)
[2017-06-09] MEDS: lamoTRIgine 25 MG TAB PO SCH (19:20)
[2017-06-10] MEDS: BENZTROPINE MESYLATE 1 MG TAB PO SCH ×2 (08:24→20:38)
[2017-06-10] MEDS: VENLAFAXINE XR 150 MG CAP PO SCH (08:24)
[2017-06-10] MEDS: PROPRANOLOL HCL 20 MG TAB PO SCH ×2 (08:24→20:39)
[2017-06-10] MEDS: LITHIUM CARBONATE ER 300 MG TAB PO SCH ×2 (08:25→20:46)
[2017-06-10] MEDS: CHOLECALCIFEROL VIT D3 1,000 UNITS TAB PO SCH (08:25)
[2017-06-10] MEDS: ALGAL OIL PO SCH (08:57)
[2017-06-10] MEDS: LEVOMEFOLATE PO SCH (08:57)
[2017-06-10] MEDS: LEVOTHYROXINE 25 MCG TAB PO SCH (09:50)
--- NOTE | 2017-06-10 13:28 | SOAPPROG ---
SOAP Progress Note Assessment/Plan: Assessment: 36 yo with h/o bipolar with psychotic features. He presented to ED on M1 singed by his outpatient psych MD, Dr. Paul, for worsening psychosis, including paranoia and non-compliance with treatment. He has not been taking meds as prescribed and according to Dr. Paul has been using increased amounts of THC , even though his UDS was neg for THC (this is likely a false negative). Per ED report: Patient presents on an M1 hold due to reports of bipolar disorder with decompensation acute psychosis. Patient denies any of this and feels that he has been doing well, but there is documentation from his psychiatrist and family that he has been manic, presenting with normal speech, and not taking his medications. Patient says that he has no complaints of any kind and feels that he has done well on only missed 1 dose of his lithium with the past 2 weeks. He denies any suicidal ideation. He denies a sleepless nights. He denies any complaints of any kind. No modifying factors from the patient. He arrives on an M1 hold and is calm and cooperative. 06/10/17 13:24 1. CCM - patient will need some time to stabilize on meds. He has likely been noncompliant for longer than he reported to ED MD, A/E/B fact that his [place] level was only 0.6. 2. Patient is not as actively psychotic or paranoid as he was on presentation. This is likely d/t no THC x 48 hrs. Subjective: Met with patient, reviewed chart and d/w staff. Patient is very disorganized, has word finding difficulty and thought blocking. He says he doesn't think meds are helpful because "I don't think they can do anything for me." He is taking meds as ordered including addition of Risperdal which Dr. Paul recommended. Objective: Vital Signs Temp Pulse Resp BP Pulse Ox 36.9 C 106 H 14 124/86 H 99 06/10/17 06:00 06/10/17 08:24 06/10/17 06:00 06/10/17 08:24 06/10/17 06:00 MSE: Affect: Blunted Mood: "OK" TP: Disorganized, thought blocking, poverty of speech TC: Denies AH/VH, but presents as internally preoccupied, paranoid, delusional, no SI/HI Insight/Judgment: Poor - Time Spent With Patient Time Spent With Patient: 15" - Pending Discharge Pending Discharge Within 24 Hours: No Pending Discharge Within 48 Hours: No ICD10 Worksheet Patient Problems: Problems Problem Status Onset Acute psychosis Acute Bipolar 1 disorder Acute Cannabis use disorder, severe, dependence Acute Altered mental status Acute Schizophrenia Acute - ICD10 Problem Qualifiers (1) Cannabis use disorder, severe, dependence
[2017-06-10] MEDS: lamoTRIgine 100 MG TAB PO SCH (20:37)
[2017-06-10] MEDS: risperiDONE 1 MG TAB PO SCH (20:38)
[2017-06-10] MEDS: LORazepam 1 MG TAB PO SCH (20:38)
[2017-06-10] MEDS: lamoTRIgine 25 MG TAB PO SCH (20:39)
[2017-06-11] MEDS: BENZTROPINE MESYLATE 1 MG TAB PO SCH ×2 (08:32→20:46)
[2017-06-11] MEDS: VENLAFAXINE XR 150 MG CAP PO SCH (08:32)
[2017-06-11] MEDS: CHOLECALCIFEROL VIT D3 1,000 UNITS TAB PO SCH (08:32)
[2017-06-11] MEDS: LITHIUM CARBONATE ER 300 MG TAB PO SCH ×2 (08:32→20:46)
[2017-06-11] MEDS: PROPRANOLOL HCL 20 MG TAB PO SCH ×2 (08:32→20:47)
[2017-06-11] MEDS: ALGAL OIL PO SCH (08:33)
[2017-06-11] MEDS: LEVOMEFOLATE PO SCH (08:33)
[2017-06-11] MEDS: LEVOTHYROXINE 25 MCG TAB PO SCH (11:18)
--- NOTE | 2017-06-11 15:39 | SOAPPROG ---
SOAP Progress Note Assessment/Plan: Assessment: 36 yo with h/o bipolar with psychotic features. He presented to ED on M1 singed by his outpatient psych MD, Dr. Paul, for worsening psychosis, including paranoia and non-compliance with treatment. He has not been taking meds as prescribed and according to Dr. Paul has been using increased amounts of THC , even though his UDS was neg for THC (this is likely a false negative). Per ED report: Patient presents on an M1 hold due to reports of bipolar disorder with decompensation acute psychosis. Patient denies any of this and feels that he has been doing well, but there is documentation from his psychiatrist and family that he has been manic, presenting with normal speech, and not taking his medications. Patient says that he has no complaints of any kind and feels that he has done well on only missed 1 dose of his lithium with the past 2 weeks. He denies any suicidal ideation. He denies a sleepless nights. He denies any complaints of any kind. No modifying factors from the patient. He arrives on an M1 hold and is calm and cooperative. 06/10/17 13:24 1. CCM - patient will need some time to stabilize on meds. He has likely been noncompliant for longer than he reported to ED MD, A/E/B fact that his [place] level was only 0.6. 2. Patient is not as actively psychotic or paranoid as he was on presentation. This is likely d/t no THC x 48 hrs. 06/11/17 15:35 1. CCM - slight improvement, more organized, but very guarded and defensive 2. Patient agrees to sign in voluntary and stay in hospital until he is ready to return to [facility]. Patient's family visited today from [place]. His mother wants him to stay in hospital. Subjective: Patient was more irritable with MD today. He complained about staying in hospital and wanted to know "what right you have to keep me here." He also wanted to know "what evidence" there was that he was psychotic. MD explained concerns that led Dr. Paul and staff at [facility] to place him on mental health hold. Patient admitted he had agreed to take Risperdal and his other meds so he could get more stable in hospital before returning to [facility]. Patient had visit with his [facility] who drove from [place] to see him. She wants patient to stay in hospital until he is more stable. Patient agreed. Objective: Vital Signs Temp Pulse Resp BP Pulse Ox 36.4 C 116 H 16 130/83 H 100 06/11/17 06:00 06/11/17 08:32 06/11/17 06:00 06/11/17 08:32 06/11/17 06:00 MSE: Argumentative and irritable, but later calmed down and was appropriate. Affect: Defensive, labile Mood: "OK" TP: Illogical, argumentative TC: No AH/ VH, paranoid, delusional, no SI/HI Insight/Judgment: Impaired - Time Spent With Patient Time Spent With Patient: 20" - Pending Discharge Pending Discharge Within 24 Hours: No Pending Discharge Within 48 Hours: No ICD10 Worksheet Patient Problems: Problems Problem Status Onset Acute psychosis Acute Bipolar 1 disorder Acute Cannabis use disorder, severe, dependence Acute Altered mental status Acute Schizophrenia Acute - ICD10 Problem Qualifiers (1) Cannabis use disorder, severe, dependence
[2017-06-11] MEDS: lamoTRIgine 100 MG TAB PO SCH (20:45)
[2017-06-11] MEDS: LORazepam 1 MG TAB PO SCH (20:46)
[2017-06-11] MEDS: lamoTRIgine 25 MG TAB PO SCH (20:46)
[2017-06-11] MEDS: risperiDONE 1 MG TAB PO SCH (20:46)
[2017-06-12] MEDS: PROPRANOLOL HCL 20 MG TAB PO SCH ×2 (08:18→20:35)
[2017-06-12] MEDS: LITHIUM CARBONATE ER 300 MG TAB PO SCH ×2 (08:18→20:33)
[2017-06-12] MEDS: VENLAFAXINE XR 150 MG CAP PO SCH (08:18)
[2017-06-12] MEDS: BENZTROPINE MESYLATE 1 MG TAB PO SCH ×2 (08:19→20:34)
[2017-06-12] MEDS: CHOLECALCIFEROL VIT D3 1,000 UNITS TAB PO SCH (08:19)
[2017-06-12] MEDS: LEVOMEFOLATE PO SCH (08:30)
[2017-06-12] MEDS: ALGAL OIL PO SCH (08:30)
[2017-06-12] MEDS: LEVOTHYROXINE 25 MCG TAB PO SCH (09:47)
[2017-06-12] MEDS: LORazepam 1 MG TAB PO SCH (20:34)
[2017-06-12] MEDS: risperiDONE 1 MG TAB PO SCH (20:34)
[2017-06-12] MEDS: lamoTRIgine 100 MG TAB PO SCH (20:34)
[2017-06-12] MEDS: lamoTRIgine 25 MG TAB PO SCH (20:35)
[2017-06-13] MEDS: BENZTROPINE MESYLATE 1 MG TAB PO SCH ×2 (08:28→18:33)
[2017-06-13] MEDS: PROPRANOLOL HCL 20 MG TAB PO SCH ×2 (08:29→17:55)
[2017-06-13] MEDS: CHOLECALCIFEROL VIT D3 1,000 UNITS TAB PO SCH (08:29)
[2017-06-13] MEDS: VENLAFAXINE XR 150 MG CAP PO SCH (08:29)
[2017-06-13] MEDS: LITHIUM CARBONATE ER 300 MG TAB PO SCH ×2 (08:29→17:54)
[2017-06-13] MEDS: ALGAL OIL PO SCH (08:30)
[2017-06-13] MEDS: LEVOMEFOLATE PO SCH (08:30)
[2017-06-13] MEDS: LEVOTHYROXINE 25 MCG TAB PO SCH (09:28)
--- NOTE | 2017-06-13 14:10 | SOAPPROG ---
SOYARIEL Progress Note Assessment/Plan: Assessment: Plan: 06/13/17 14:10 Schizoaffective d/o: Improving. CCM. Subjective: LATE ENTRY FOR 06/12/17. Pt seen, discussed with staff, chart reviewed. Reports feeling "normal." Discussed d/c options and he states he wants to transition to general outpatient treatment and not f/u with [facility]. He does not explain exactly why. Compliant with all meds. No irritability or behavioral issues. Objective: Vital Signs Temp Pulse Resp BP Pulse Ox 36.6 C 84 14 126/71 H 96 06/13/17 06:00 06/13/17 06:00 06/13/17 06:00 06/13/17 06:00 06/13/17 06:00 - Time Spent With Patient Time Spent With Patient: 25" ICD10 Worksheet Patient Problems: Problems Problem Status Onset Acute psychosis Acute Bipolar 1 disorder Acute Cannabis use disorder, severe, dependence Acute Altered mental status Acute Schizophrenia Acute
--- NOTE | 2017-06-13 14:14 | SOAPPROG ---
SOYARIEL Progress Note Assessment/Plan: Assessment: Plan: 06/13/17 14:10 Schizoaffective d/o: Improving. CCM. 06/13/17 14:16 Doing well. Plan in place for d/c tomorrow. Will check lithium level in a.m. Subjective: Pt seen, discussed with staff. Dr Paul and parents here for family session. We reviewed pt's status, treatment, d/c and f/u plans. All in agreement for pt to go to after d/c. He agrees to follow the rules there and make plans for appropriate community supports. Objective: Vital Signs Temp Pulse Resp BP Pulse Ox 36.6 C 84 14 126/71 H 96 06/13/17 06:00 06/13/17 06:00 06/13/17 06:00 06/13/17 06:00 06/13/17 06:00 MSE: Calm, coop. Affect is euthymic, stable, approp. Mood is "good." TP generally linear. TC reveals no mention of paranoia, IOR's or AH's. - Time Spent With Patient Time Spent With Patient: 55" ICD10 Worksheet Patient Problems: Problems Problem Status Onset Acute psychosis Acute Bipolar 1 disorder Acute Cannabis use disorder, severe, dependence Acute Altered mental status Acute Schizophrenia Acute
[2017-06-13] MEDS: lamoTRIgine 100 MG TAB PO SCH (17:55)
[2017-06-13] MEDS: LORazepam 1 MG TAB PO SCH (17:56)
[2017-06-13] MEDS: risperiDONE 1 MG TAB PO SCH (17:56)
[2017-06-13 17:58] VITALS: PULSE 97
[2017-06-13] MEDS: lamoTRIgine 25 MG TAB PO SCH (17:58)
[2017-06-14 06:23] VITALS: BP 132/78; RESP 16; TEMP 98.1; O2SAT 95
[2017-06-14] MEDS: CHOLECALCIFEROL VIT D3 1,000 UNITS TAB PO SCH (08:12)
[2017-06-14] MEDS: LITHIUM CARBONATE ER 300 MG TAB PO SCH (08:12)
[2017-06-14] MEDS: VENLAFAXINE XR 150 MG CAP PO SCH (08:12)
[2017-06-14] MEDS: BENZTROPINE MESYLATE 1 MG TAB PO SCH (08:13)
[2017-06-14] MEDS: PROPRANOLOL HCL 20 MG TAB PO SCH (08:13)
[2017-06-14] MEDS: LEVOMEFOLATE PO SCH (08:15)
[2017-06-14] MEDS: ALGAL OIL PO SCH (08:15)
[2017-06-14] MEDS: LEVOTHYROXINE 25 MCG TAB PO SCH (10:09)
[2017-06-14 12:03] LABS: LITHIUM 0.6 mEq/L (0.6-1.2)
--- NOTE | 2017-06-16 20:24 | BDS ---
[f rep st] BEHAVIORAL HEALTH DISCHARGE SUMMARY REASON FOR ADMISSION: Patient is a 36-year-old, male, with a history of schizoaffective di sorder. He was admitted to the [facility] inpatient unit from [facility] due to the recent decompensation involving increased mood lability, irritability, and treatment noncomplian ce. He was placed on M1 hold by Dr. Nj Paul, his outpatient psychiatrist, and transferred to the emergency department. He was then admitted for further evaluation and treatment. A full descrip tion of the events preceding admission can be found in his admission history dated 06/09/2017. ADMITTING DIAGNOSES: 1. Bipolar 1 disorder, most recent episode mixed, severe, with psychosis. 2. Possible schizoaffective disorder bipolar type. 3. Recurrent illness, possible medication noncompliance. 4. Cannabis use disorder, moderate. 5. Alcohol use disorder, severity unknown. ADMITTING PHYSICAL EXAMINATION: Performed by Dr. Errol Greco revealed no acute physical findings. ADMISSION LABORATORY: CBC showed a white count up at 14.61, platelet count up of 480,000, neutrophil percentage was normal at 60.3. No other abnormalities noted. Serum chemistries were normal. TSH w as normal at 1.90, urine drug screen was negative for all substances of abuse. [place] level on admi ssion was 0.6, Lamictal level on admission was 3.1. CT scan of the head in the emergency department was normal. HOSPITAL COURSE: Patient was admitted to the [facility] inpatient unit on an M1 hold. He was pleasant and cooperative and participated actively in all therapies and evaluations. I knew him from previous admission and he recognized me and greeted me appropriately. He was a little guard ed and possibly internally distracted but overall displayed good behavioral control and overall stabl e affect. His parents came to [facility] from [place] almost immediately and participated actively in his ca re. We had a family meeting with the patient, his parents, myself, and the health care sanitary technician during h is stay and were able to outline a plan in which he would follow up with [facility] and go mingo k to following their recommendations to a T. He was agreeable to this and stated that he believed he did better when he was more compliant. He specifically agreed to discontinue marijuana use and subm it to urinalyses. Patient's outpatient medications were continued though there was some confusion over the dose of his lithium. He apparently had been taking 900 mg twice daily prior to admission and was given 600 mg tw ice daily in the hospital. His level on discharge was 0.6 which was the same as it was on admission though it is unclear whether he was strictly compliant or not. His parents did notice that his long- standing hand tremor had decreased with the decreased dose and so it was thought that if he would rem ain stable on the lower dose it might help him be more functional overall with decreased tremor and robert lindsay was pleased by this as well. Risperdal was added at 1 mg at HS as he has seemed to be more stable over time with the addition of a n atypical antipsychotic. This was done at the suggestion of Dr. Paul. Patient tolerated this w ell with no side effects and it did not affect his tremor. Patient met with Dr. Paul independently and also during our family session on the unit and made a plan to go to [facility]. He was discharged to that facility at the time of discharge. CONDITION AT DISCHARGE: Stable. His affect was euthymic, stable and appropriate and he was showing no overt signs of psychosis. He was cooperative and compliant with all treatments. DISCHARGE MEDICATIONS: Effexor XR 150 mg daily, Cogentin 1 mg twice daily, Synthroid 50 mcg daily, D eplin 1 tab daily, Lorazepam 1 mg at h.s., Lamictal 525 mg at HS, vitamin D3, a 1000 mg daily, propra nolol 40 mg twice daily, and lithium carbonate ER 600 mg twice daily, Risperdal 1 mg p.o. at bedtime. DISCHARGE DIAGNOSES: Schizoaffective disorder, bipolar type, chronic with acute exacerbation. Chron ic illness, recent recurrence, cannabis use disorder, moderate. Out of home placement, some family c onflict. DISPOSITION: Patient left the hospital with representatives from [facility] to go to [facility]. FOLLOW-UP: With Dr. Paul at [facility] and with [facility] staff. LEGAL COURSE: Patient was converted to a voluntary status with expiration of his M1 hold. /[id number]/MODL
== END 2017-06-14 10:49 | DRG 885 ==
LOC: EDUNIT# → BBEH 21:30
PROVIDERS: ADMIT Psychiatry & Neurology Behavioral Neurology & Neuropsychiatry; ATTEND Psychiatry & Neurology Psychiatry
DX: F31.64 Bipolar disorder, current episode mixed, severe, with psychotic features (principal); F25.0 Schizoaffective disorder, bipolar type; Z91.14 Patient's other noncompliance with medication regimen; F12.20 Cannabis dependence, uncomplicated; Z72.89 Other problems related to lifestyle
CPT/HCPCS: 80175-90; 80305; G0480

== ENCOUNTER 2017-06-26 11:18 | Inpatient (IN) | payer OTHER ==
[2017-06-26 12:13] LABS: % IMMATURE GRANULYOCYTES 0.3 % (0.0-1.1); ABSOLUTE IMMATURE GRANULOCYTES 0.04 10^3/uL (0.00-0.10); ADD DIFF? NO; ADD MORPH? NO; ADD SCAN? NO; ATYPICAL LYMPHOCYTE FLAG 10 (0-99); FRAGMENT RBC FLAG 0 (0-99); LEFT SHIFT FLG 0 (0-99); LIPEMIA HEMOLYSIS FLAG 90 (0-99); MEAN CELL HEMOGLOBIN 30.6 pg (27.9-34.1); MEAN CELL HEMOGLOBIN CONCENTR. 34.1 g/dL (32.4-36.7); MEAN CELL VOLUME 89.7 fL (81.5-99.8); MEAN PLATELET VOLUME 9.5 fL (8.7-11.7); PLATELET CLUMPS FLAG 0 (0-99); PLATELET COUNT 329 10^3/uL (150-400); RED BLOOD CELL COUNT 4.57 10^6/uL (4.40-6.38); RED CELL DISTRIBUTION WIDTH 13.8 % (11.5-15.2)
[2017-06-26 12:36] LABS: ANION GAP 14 mEq/L (8-16); CARBON DIOXIDE 23 mEq/l (22-31); CHLORIDE 104 mEq/L (97-110); CREATININE 0.8 mg/dL (0.7-1.3); GLOMERULAR FILTRATION RATE > 60; GLUCOSE 99 mg/dL (70-100); POTASSIUM 4.5 mEq/L (3.5-5.2); SODIUM 141 mEq/L (134-144)
[2017-06-26] MEDS ORDERED: OLANZapine DISINTEGR 10 MG TAB PO ONE (13:17)
--- NOTE | 2017-06-26 13:47 | EDPHY ---
H & P Stated Complaint: HTN Time Seen by Provider: 06/26/17 12:34 HPI/ROS: CHIEF COMPLAINT: Uncooperative, reported elevated blood pressure HISTORY OF PRESENT ILLNESS: The patient has a history of bipolar mood disorder and is currently on a number of psychiatric medications. The patient was referred to the emergency department as he had become agitated at his outpatient psychiatric facility. The patient reportedly has been compliant with his regular medications which include lithium, Lamictal, Effexor and risperidone. The patient is accompanied his father reports that the patient is exhibiting symptoms of agitation and mild abigail. The patient denies any suicidal or homicidal ideation. The patient denies any recreational drug use. The patient denies any significant past medical history of hypertension. He denies history of fall or trauma. REVIEW OF SYSTEMS: A comprehensive 10 point review of systems is otherwise negative aside from elements mentioned in the history of present illness. Source: Patient Exam Limitations: No limitations - Personal History Current Tetanus Diphtheria and Acellular Pertussis (TDAP): Unsure - Medical/Surgical History Hx Asthma: No Hx Chronic Respiratory Disease: No Hx Diabetes: No Hx Cardiac Disease: No Hx Renal Disease: No Hx Cirrhosis: No Hx Alcoholism: No Hx HIV/AIDS: No Hx Splenectomy or Spleen Trauma: No Other PMH: BIPOLAR, HYPOTHYROID, parathyroidectomy, hz pseudoszs, tachycardia - Social History Smoking Status: Current every day smoker - Physical Exam Exam: General Appearance: Alert, no distress Eyes: Pupils equal and round no pallor or injection ENT, Mouth: Mucous membranes moist Respiratory: There are no retractions, lungs are clear to auscultation Cardiovascular: Regular rate and rhythm Gastrointestinal: Abdomen is soft and nontender, no masses, bowel sounds normal Neurological: Alert and oriented x4, pressured speech, no gross motor deficits noted on exam Skin: Warm and dry, no rashes Musculoskeletal: Neck is supple nontender Extremities: symmetrical, full range of motion Psychiatric: Agitated, pressured speech, tangential Constitutional: Initial Vital Signs Temperature (C) 37 C 06/26/17 12:07 Heart Rate 102 H 06/26/17 12:07 Respiratory Rate 14 06/26/17 12:07 Blood Pressure 144/97 H 06/26/17 12:07 O2 Sat (%) 98 06/26/17 12:07 O2 Delivery Mode Room Air Allergies/Adverse Reactions: No Known Allergies Allergy (Verified 06/26/17 12:10) Home Medications: Medication Instructions Recorded Benztropine Mesylate [Cogentin] 1 mg PO BID 06/08/17 Cholecalciferol Vit D3 [Vitamin D3 1,000 units PO DAILY 06/08/17 (*)] LORazepam [Ativan (*)] 1 mg PO HS 06/08/17 Levomefolate/Algal Oil 1 each PO DAILY 06/08/17 [[place]-Algal Oil 15 mg Capsule] Propranolol HCl [Inderal 40mg (*)] 40 mg PO BID 06/08/17 Venlafaxine Xr [Effexor Xr] 300 mg PO DAILY 06/08/17 lamoTRIgine [LamICTAL 100 MG (*)] 525 mg PO HS 06/08/17 Levothyroxine [Synthroid 25 mcg 50 mcg PO DAILY10 tab 06/14/17 (*)] [place] Carbonate ER [Lithobid 300 600 mg PO BID #0 tab 06/14/17 mg (*)] risperiDONE [Risperdal 1mg (*)] 1 mg PO HS tab 06/14/17 Medical Decision Making ED Course/Re-evaluation: The patient presents to the ED with decompensated bipolar mood disorder and abigail. The patient arrives and is quite agitated. He is uncooperative. He received 10 mg of Zyprexa. Patient has no significant hypertension noted in the emergency department. The patient has been medically cleared for psychiatric evaluation by myself. I obtained collateral information from the patient's father. The patient's laboratory studies are within normal limits. There is no evidence of a toxidrome at this point time. I doubt ICH or a MILLER HEAD WET PROCESS process as a presentation today. The patient was evaluated by Psychiatry and has been accepted for inpatient psychiatric hospitalization at [facility]. He has been accepted by Dr. Carlos Acosta. I have filled out the EMTALA transfer form. Differential Diagnosis: Differential diagnosis considered includes psychosis, bipolar mood disorder, folic abnormality, intoxication, suicidal ideation - Data Points Laboratory Results: Laboratory Results 06/26/17 12:00 06/26/17 12:00 06/26/17 06/26/17 06/26/17 12:30 12:00 12:00 WBC 12.28 10^3/uL H 10^3/uL (3.80-9.50) RBC 4.57 10^6/uL 10^6/uL (4.40-6.38) Hgb 14.0 g/dL g/dL (13.7-17.5) Hct 41.0 % % (40.0-51.0) MCV 89.7 fL fL (81.5-99.8) MCH 30.6 pg pg (27.9-34.1) MCHC 34.1 g/dL g/dL (32.4-36.7) RDW 13.8 % % (11.5-15.2) Plt Count 329 10^3/uL 10^3/uL (150-400) MPV 9.5 fL fL (8.7-11.7) Neut % (Auto) 62.4 % % (39.3-74.2) Lymph % (Auto) 28.2 % % (15.0-45.0) [place] % (Auto) 5.5 % % (4.5-13.0) Eos % (Auto) 2.9 % % (0.6-7.6) Baso % (Auto) 0.7 % % (0.3-1.7) Nucleat RBC Rel Count 0.0 % % (0.0-0.2) Absolute Neuts (auto) 7.67 10^3/uL H 10^3/uL (1.70-6.50) Absolute Lymphs (auto) 3.46 10^3/uL H 10^3/uL (1.00-3.00) Absolute Monos (auto) 0.67 10^3/uL 10^3/uL (0.30-0.80) Absolute Eos (auto) 0.35 10^3/uL 10^3/uL (0.03-0.40) Absolute Basos (auto) 0.09 10^3/uL 10^3/uL (0.02-0.10) Absolute Nucleated RBC 0.00 10^3/uL 10^3/uL (0-0.01) Immature Gran % 0.3 % % (0.0-1.1) Immature Gran # 0.04 10^3/uL 10^3/uL (0.00-0.10) Sodium 141 mEq/L mEq/L (134-144) Potassium 4.5 mEq/L mEq/L (3.5-5.2) Chloride 104 mEq/L mEq/L (97-110) Carbon Dioxide 23 mEq/l mEq/l (22-31) Anion Gap 14 mEq/L mEq/L (8-16) BUN 12 mg/dL mg/dL (7-23) Creatinine 0.8 mg/dL mg/dL (0.7-1.3) Estimated GFR > 60 Glucose 99 mg/dL mg/dL (70-100) Calcium 10.0 mg/dL mg/dL (8.5-10.4) Urine Opiates Screen NEGATIVE (NEGATIVE) Urine Barbiturates NEGATIVE (NEGATIVE) Ur Phencyclidine Scrn NEGATIVE (NEGATIVE) Ur Amphetamine Screen NEGATIVE (NEGATIVE) U Benzodiazepines Scrn NEGATIVE (NEGATIVE) Urine Cocaine Screen NEGATIVE (NEGATIVE) U Marijuana (THC) Screen NEGATIVE (NEGATIVE) Medications Given: Discontinued Medications Olanzapine (Zyprexa Zydis) 10 mg PO EDNOW ONE Stop: 06/26/17 13:18 Last Admin: 06/26/17 13:36 Dose: 10 mg Departure - Departure Disposition: [facility] IP Clinical Impression: Bipolar 1 disorder, Agitation Condition: Good Referrals: NONE *PRIMARY CARE P,. [Primary Care Provider] - As per Instructions
[2017-06-26] MEDS ORDERED: MAGNESIUM HYDROXIDE 30 ML UDCUP PO PRN (19:57)
[2017-06-26] MEDS ORDERED: NICOTINE POLACRILEX 2 MG GUM B PRN (19:57)
[2017-06-26] MEDS ORDERED: MAG HYDROX/AL HYDROX/SIMETH 30 ML UDCUP PO PRN (19:57)
[2017-06-26] MEDS ORDERED: ACETAMINOPHEN 325 MG TAB PO PRN (19:57)
[2017-06-26] MEDS: LORazepam 0.5 MG TAB PO PRN (22:13)
[2017-06-27] MEDS: risperiDONE 1 MG TAB PO SCH (08:52)
[2017-06-27] MEDS: lamoTRIgine 25 MG TAB PO SCH (08:52)
[2017-06-27] MEDS: lamoTRIgine 100 MG TAB PO SCH (08:52)
[2017-06-27] MEDS: LITHIUM CARBONATE ER 300 MG TAB PO SCH (08:52)
[2017-06-27] MEDS: VENLAFAXINE XR 150 MG CAP PO SCH (08:53)
[2017-06-27] MEDS: PROPRANOLOL HCL 20 MG TAB PO SCH (08:53)
[2017-06-27] MEDS: CHOLECALCIFEROL VIT D3 1,000 UNITS TAB PO SCH (08:53)
[2017-06-27] MEDS: LEVOTHYROXINE 25 MCG TAB PO SCH (08:53)
[2017-06-27] MEDS: LEVOMEFOLATE CALCIUM 15 MG PO SCH (08:54)
[2017-06-27] MEDS ORDERED: LAMOTRIGINE 400 MG PO SCH (09:00)
[2017-06-27] MEDS: LORazepam 0.5 MG TAB PO PRN (21:08)
[2017-06-28] MEDS: LEVOMEFOLATE CALCIUM 15 MG PO SCH (08:22)
[2017-06-28] MEDS: LITHIUM CARBONATE ER 300 MG TAB PO SCH (08:23)
[2017-06-28] MEDS: VENLAFAXINE XR 150 MG CAP PO SCH (08:23)
[2017-06-28] MEDS: PROPRANOLOL HCL 20 MG TAB PO SCH (08:24)
[2017-06-28] MEDS: LEVOTHYROXINE 25 MCG TAB PO SCH (08:25)
[2017-06-28] MEDS: lamoTRIgine 25 MG TAB PO SCH (08:25)
[2017-06-28] MEDS: lamoTRIgine 100 MG TAB PO SCH (08:25)
[2017-06-28] MEDS: risperiDONE 1 MG TAB PO SCH ×2 (08:26→21:27)
[2017-06-28] MEDS: CHOLECALCIFEROL VIT D3 1,000 UNITS TAB PO SCH (08:26)
[2017-06-28] MEDS ORDERED: risperiDONE 1 MG TAB PO SCH (10:45)
--- NOTE | 2017-06-28 17:38 | SOAPPROG ---
SOAP Progress Note Assessment/Plan: Assessment: Plan: 06/28/17 17:38 Remains disorganized. Cooperative with med changes at this point. Will increase Lamictal to 600mg as his level is 3.7 on 525mg. Will also increase Risperdal to 1mg BID. Subjective: Pt seen, discussed with staff. REports feeling "just fine." States, "I'll just do whatever you want." I discussed titrating Lamictal and Risperdal and he is agreeable. He later states, "That sounds good, I have been wanting to stop the Risperdal." Remains aloof, attending some groups, but not able to engage. Remains disorganized. Objective: Vital Signs Temp Pulse Resp BP Pulse Ox 36.7 C 110 H 12 128/86 H 94 06/28/17 06:00 06/28/17 06:00 06/28/17 06:00 06/28/17 06:00 06/28/17 06:00 - Time Spent With Patient Time Spent With Patient: 25" ICD10 Worksheet Patient Problems: Problems Problem Status Onset Agitation Acute Bipolar 1 disorder Acute Acute psychosis Acute Altered mental status Acute Cannabis use disorder, severe, dependence Acute Schizophrenia Acute
[2017-06-29] MEDS: LITHIUM CARBONATE ER 300 MG TAB PO SCH (08:30)
[2017-06-29] MEDS: risperiDONE 1 MG TAB PO SCH ×2 (08:31→22:03)
[2017-06-29] MEDS: lamoTRIgine 100 MG TAB PO SCH (08:32)
[2017-06-29] MEDS: VENLAFAXINE XR 150 MG CAP PO SCH (08:33)
[2017-06-29] MEDS: LEVOTHYROXINE 25 MCG TAB PO SCH (08:33)
[2017-06-29] MEDS: CHOLECALCIFEROL VIT D3 1,000 UNITS TAB PO SCH (08:34)
[2017-06-29] MEDS: PROPRANOLOL HCL 20 MG TAB PO SCH (08:34)
[2017-06-29] MEDS: LEVOMEFOLATE CALCIUM 15 MG PO SCH (08:35)
--- NOTE | 2017-06-29 21:38 | SOAPPROG ---
SOAP Progress Note Assessment/Plan: Assessment: Plan: 06/28/17 17:38 Remains disorganized. Cooperative with med changes at this point. Will increase Lamictal to 600mg as his level is 3.7 on 525mg. Will also increase Risperdal to 1mg BID. 06/29/17 21:37 Very disorganized. I am in contact [facility] pt's parents and outpatient psychiatrist. I do not see specific indication for neuroimaging at this time. Will seek second opinion in regareds to this. Subjective: Pt seen, discussed with staff. More disorganized today. Dr. Paul and CR team saw him today as well and note increased disorganization. He is unable to give meaningful history. Compliant [facility] meds. Objective: Vital Signs Temp Pulse Resp BP Pulse Ox 36.4 C 95 16 124/77 H 97 06/29/17 06:00 06/29/17 06:00 06/29/17 06:00 06/29/17 06:00 06/29/17 06:00 MSE: Disheveled, coop, engagaing, delayed. Affect is blunted, stable. Mood is "OK.: TP is disorganized - when asked how he feels, he states, "There is blue in the water isn't there." - Time Spent With Patient Time Spent With Patient: 25" ICD10 Worksheet Patient Problems: Problems Problem Status Onset Agitation Acute Bipolar 1 disorder Acute Acute psychosis Acute Altered mental status Acute Cannabis use disorder, severe, dependence Acute Schizophrenia Acute
[2017-06-30] MEDS: LITHIUM CARBONATE ER 300 MG TAB PO SCH (08:56)
[2017-06-30] MEDS: lamoTRIgine 100 MG TAB PO SCH (08:56)
[2017-06-30] MEDS: VENLAFAXINE XR 150 MG CAP PO SCH (08:56)
[2017-06-30] MEDS: LEVOMEFOLATE CALCIUM 15 MG PO SCH (08:56)
[2017-06-30] MEDS: CHOLECALCIFEROL VIT D3 1,000 UNITS TAB PO SCH (08:57)
[2017-06-30] MEDS: risperiDONE 1 MG TAB PO SCH (08:57)
[2017-06-30] MEDS: PROPRANOLOL HCL 20 MG TAB PO SCH (08:58)
[2017-06-30] MEDS: LEVOTHYROXINE 25 MCG TAB PO SCH (09:04)
[2017-06-30] MEDS ORDERED: OLANZapine 10 MG/2 ML VIAL IM PRN (16:48)
[2017-06-30] MEDS ORDERED: LORazepam 2 MG/ML INJ IM PRN (16:49)
[2017-06-30] MEDS ORDERED: LORazepam 1 MG TAB PO ONE (17:00)
[2017-06-30] MEDS ORDERED: OLANZapine 10 MG TAB PO ONE (17:00)
[2017-06-30] MEDS: risperiDONE 2 MG TAB PO SCH (21:13)
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
[2017-07-01] MEDS: LORazepam 0.5 MG TAB PO PRN (03:51)
[2017-07-01] MEDS: PROPRANOLOL HCL 20 MG TAB PO SCH (08:11)
[2017-07-01] MEDS: risperiDONE 1 MG TAB PO SCH (08:12)
[2017-07-01] MEDS: lamoTRIgine 100 MG TAB PO SCH (08:12)
[2017-07-01] MEDS: VENLAFAXINE XR 150 MG CAP PO SCH (08:12)
[2017-07-01] MEDS: CHOLECALCIFEROL VIT D3 1,000 UNITS TAB PO SCH (08:12)
[2017-07-01] MEDS: LITHIUM CARBONATE ER 300 MG TAB PO SCH (08:12)
[2017-07-01] MEDS: LEVOMEFOLATE CALCIUM 15 MG PO SCH (08:13)
[2017-07-01] MEDS: LEVOTHYROXINE 25 MCG TAB PO SCH (10:13)
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
[2017-07-01] MEDS ORDERED: LORazepam 1 MG TAB ONE (15:03)
[2017-07-01] MEDS ORDERED: LORazepam 1 MG TAB PO PRN (15:23)
[2017-07-01] MEDS: LORazepam 1 MG TAB PO SCH ×2 (17:23→20:44)
[2017-07-01] MEDS: risperiDONE 2 MG TAB PO SCH (20:44)
[2017-07-01] MEDS ORDERED: OLANZapine DISINTEGR 10 MG TAB PO PRN (21:26)
[2017-07-02] MEDS: LORazepam 1 MG TAB PO SCH ×4 (06:48→20:03)
[2017-07-02] MEDS: LITHIUM CARBONATE ER 300 MG TAB PO SCH (08:42)
[2017-07-02] MEDS: lamoTRIgine 100 MG TAB PO SCH (08:42)
[2017-07-02] MEDS: risperiDONE 1 MG TAB PO SCH (08:42)
[2017-07-02] MEDS: CHOLECALCIFEROL VIT D3 1,000 UNITS TAB PO SCH (08:43)
[2017-07-02] MEDS: PROPRANOLOL HCL 20 MG TAB PO SCH (08:43)
[2017-07-02] MEDS: LEVOMEFOLATE CALCIUM 15 MG PO SCH (08:44)
[2017-07-02] MEDS ORDERED: LORazepam 1 MG TAB PO SCH (09:00)
[2017-07-02] MEDS: LEVOTHYROXINE 25 MCG TAB PO SCH (09:49)
[2017-07-02] MEDS ORDERED: LORazepam 0.5 MG TAB PO PRN (13:30)
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
[2017-07-02] MEDS ORDERED: LORazepam 0.5 MG TAB PO SCH (16:00)
[2017-07-02] MEDS: risperiDONE 2 MG TAB PO SCH (20:03)
[2017-07-03] MEDS: LORazepam 1 MG TAB PO SCH ×4 (06:14→21:36)
[2017-07-03] MEDS: LEVOTHYROXINE 25 MCG TAB PO SCH ×2 (08:55→08:58)
[2017-07-03] MEDS: CHOLECALCIFEROL VIT D3 1,000 UNITS TAB PO SCH (08:55)
[2017-07-03] MEDS: LITHIUM CARBONATE ER 300 MG TAB PO SCH (08:55)
[2017-07-03] MEDS: PROPRANOLOL HCL 20 MG TAB PO SCH ×2 (08:55→21:35)
[2017-07-03] MEDS: lamoTRIgine 100 MG TAB PO SCH (08:55)
[2017-07-03] MEDS: risperiDONE 1 MG TAB PO SCH (08:56)
[2017-07-03] MEDS: LEVOMEFOLATE CALCIUM 15 MG PO SCH ×2 (08:56→14:22)
[2017-07-03 10:12] LABS: LITHIUM 0.9 mEq/L (0.6-1.2)
[2017-07-03] MEDS ORDERED: risperiDONE 1 MG TAB PO ONE (10:34)
[2017-07-03] MEDS: LORazepam 1 MG TAB PO PRN (11:18)
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
[2017-07-03] MEDS: risperiDONE 2 MG TAB PO SCH (21:35)
[2017-07-04] MEDS: LORazepam 1 MG TAB PO SCH ×5 (06:07→20:35)
[2017-07-04] MEDS: CHOLECALCIFEROL VIT D3 1,000 UNITS TAB PO SCH (08:32)
[2017-07-04] MEDS: PROPRANOLOL HCL 20 MG TAB PO SCH ×2 (08:33→20:34)
[2017-07-04] MEDS: risperiDONE 2 MG TAB PO SCH ×2 (08:33→20:28)
[2017-07-04] MEDS: LITHIUM CARBONATE ER 300 MG TAB PO SCH (08:34)
[2017-07-04] MEDS: lamoTRIgine 100 MG TAB PO SCH (08:35)
[2017-07-04] MEDS: LEVOTHYROXINE 25 MCG TAB PO SCH (08:35)
[2017-07-04] MEDS: LEVOMEFOLATE CALCIUM 15 MG PO SCH (08:36)
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
[2017-07-05] MEDS: lamoTRIgine 100 MG TAB PO SCH (08:27)
[2017-07-05] MEDS: LEVOTHYROXINE 25 MCG TAB PO SCH (08:27)
[2017-07-05] MEDS: LITHIUM CARBONATE ER 300 MG TAB PO SCH (08:27)
[2017-07-05] MEDS: PROPRANOLOL HCL 20 MG TAB PO SCH ×2 (08:28→20:52)
[2017-07-05] MEDS: risperiDONE 2 MG TAB PO SCH ×2 (08:29→20:52)
[2017-07-05] MEDS: LEVOMEFOLATE CALCIUM 15 MG PO SCH (08:29)
[2017-07-05] MEDS: CHOLECALCIFEROL VIT D3 1,000 UNITS TAB PO SCH (08:30)
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
[2017-07-05] MEDS: LORazepam 1 MG TAB PO SCH (20:52)
[2017-07-05] MEDS: LORazepam 1 MG TAB PO PRN (23:37)
[2017-07-06] MEDS: lamoTRIgine 100 MG TAB PO SCH (08:42)
[2017-07-06] MEDS: CHOLECALCIFEROL VIT D3 1,000 UNITS TAB PO SCH (08:42)
[2017-07-06] MEDS: PROPRANOLOL HCL 20 MG TAB PO SCH ×2 (08:42→20:58)
[2017-07-06] MEDS: risperiDONE 2 MG TAB PO SCH ×2 (08:42→20:54)
[2017-07-06] MEDS: LITHIUM CARBONATE ER 300 MG TAB PO SCH (08:42)
[2017-07-06] MEDS: LEVOMEFOLATE CALCIUM 15 MG PO SCH (08:44)
[2017-07-06] MEDS: LORazepam 1 MG TAB PO SCH (20:57)
[2017-07-07] MEDS: CHOLECALCIFEROL VIT D3 1,000 UNITS TAB PO SCH (08:16)
[2017-07-07] MEDS: lamoTRIgine 100 MG TAB PO SCH (08:17)
[2017-07-07] MEDS: LITHIUM CARBONATE ER 300 MG TAB PO SCH (08:17)
[2017-07-07] MEDS: risperiDONE 2 MG TAB PO SCH ×2 (08:17→21:25)
[2017-07-07] MEDS: PROPRANOLOL HCL 20 MG TAB PO SCH ×2 (08:17→21:25)
[2017-07-07] MEDS: LEVOMEFOLATE CALCIUM 15 MG PO SCH (08:19)
[2017-07-07 08:29] LABS: LITHIUM 0.6 mEq/L (0.6-1.2)
[2017-07-07] MEDS: LEVOTHYROXINE 25 MCG TAB PO SCH (09:58)
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
[2017-07-07] MEDS: LORazepam 1 MG TAB PO SCH (21:25)
[2017-07-08] MEDS: LEVOMEFOLATE CALCIUM 15 MG PO SCH (08:36)
[2017-07-08] MEDS: PROPRANOLOL HCL 20 MG TAB PO SCH ×2 (08:38→21:22)
[2017-07-08] MEDS: LITHIUM CARBONATE ER 300 MG TAB PO SCH (08:39)
[2017-07-08] MEDS: lamoTRIgine 100 MG TAB PO SCH (08:40)
[2017-07-08] MEDS: CHOLECALCIFEROL VIT D3 1,000 UNITS TAB PO SCH (08:41)
[2017-07-08] MEDS: LEVOTHYROXINE 25 MCG TAB PO SCH (08:41)
[2017-07-08] MEDS: risperiDONE 2 MG TAB PO SCH ×2 (08:41→21:02)
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
[2017-07-08] MEDS: LORazepam 1 MG TAB PO SCH (21:02)
[2017-07-09] MEDS: risperiDONE 2 MG TAB PO SCH ×2 (08:25→20:49)
[2017-07-09] MEDS: lamoTRIgine 100 MG TAB PO SCH (08:25)
[2017-07-09] MEDS: LEVOMEFOLATE CALCIUM 15 MG PO SCH (08:26)
[2017-07-09] MEDS: CHOLECALCIFEROL VIT D3 1,000 UNITS TAB PO SCH (08:26)
[2017-07-09] MEDS: LITHIUM CARBONATE ER 300 MG TAB PO SCH (08:26)
[2017-07-09] MEDS: PROPRANOLOL HCL 20 MG TAB PO SCH ×2 (08:28→20:49)
[2017-07-09] MEDS: LEVOTHYROXINE 25 MCG TAB PO SCH (10:57)
--- NOTE | 2017-07-09 12:53 | SOAPPROG ---
SOAP Progress Note Assessment/Plan: Assessment: Per Dr. Acosta's notes: 07/03/17 16:04 Schizoaffective D/o: Improved overall. Seems to have regained ability to understand situation and hopefully curb his behaviors. Will allow out of seclusion at this point on LOS and assault precautions. Will place on STC. Discussed with patient the need to remain non-violent and to continue to be compliant with treatment recommendations and staff directions to regain voluntary status. 07/04/17 17:15 S/A D/o: Much improved overall. Tolerating increased meds well. Will CCM, place on STC. 07/05/17 17:42 S/A D/o: Continued improvement. If pt remains stable overnight, will d/c assault precautions, possibly allow AG with parents. O/w CCM. 07/07/17 16:09 S?A D/o: Looks good. No overt psychosis. CCM. Monitor behaviors. If stable, consider AG tomorrow. 07/07/17 16:13 S/A D/o: Continues doing well. CCM. Allow AG. Plan: 07/08/17 13:27 1. CCM - patient is much improved, calmer, no aggression, cooperative. 2. No psychosis 07/09/17 12:49 1. CCM - patient remains stable 2. [place] level on 07/07 was 0.6, but patient is clinically stable 3. No further aggression or agitation over weekend Subjective: Met with patient and d/w staff. Patient presents calm, agreeable, cooperative. No agitation or aggression. He says he feels "the same." He would like to go back to [facility] because he has "more freedom" there. But says he would like to leave [facility] and get his own apartment b/c he wants "more freedom. " He denies any SI/HI, no AH/VH, no acute psychotic sxs. Objective: Vital Signs Temp Pulse Resp BP Pulse Ox 36.3 C 92 16 139/85 H 97 07/08/17 05:00 07/09/17 08:28 07/09/17 05:00 07/09/17 08:28 07/09/17 05:00 MSE: Calm, agreeable. Affect: Flat Mood: "the same" TP: Linear TC: Denies any SI/HI, no AH/VH Insight/Judgment: Poor - Time Spent With Patient Time Spent With Patient: 20" - Pending Discharge Pending Discharge Within 24 Hours: No Pending Discharge Within 48 Hours: Yes Pending Discharge Date: 07/11/17 (Possible d/c back to [facility] on Monday) Pending Discharge Time: 11:00 ICD10 Worksheet Patient Problems: Problems Problem Status Onset Agitation Acute Bipolar 1 disorder Acute Acute psychosis Acute Altered mental status Acute Cannabis use disorder, severe, dependence Acute Schizophrenia Acute
[2017-07-09] MEDS: LORazepam 1 MG TAB PO SCH (20:49)
[2017-07-10] MEDS: PROPRANOLOL HCL 20 MG TAB PO SCH ×2 (08:34→20:22)
[2017-07-10] MEDS: LEVOMEFOLATE CALCIUM 15 MG PO SCH (08:34)
[2017-07-10] MEDS: risperiDONE 2 MG TAB PO SCH ×2 (08:35→20:22)
[2017-07-10] MEDS: LITHIUM CARBONATE ER 300 MG TAB PO SCH (08:35)
[2017-07-10] MEDS: LEVOTHYROXINE 25 MCG TAB PO SCH (08:35)
[2017-07-10] MEDS: CHOLECALCIFEROL VIT D3 1,000 UNITS TAB PO SCH (08:35)
[2017-07-10] MEDS: lamoTRIgine 100 MG TAB PO SCH (08:35)
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
[2017-07-10] MEDS: LORazepam 1 MG TAB PO SCH (20:22)
[2017-07-10 20:47] VITALS: RESP 14; TEMP 98.1
[2017-07-11 01:32] VITALS: O2SAT 94
[2017-07-11] MEDS: PROPRANOLOL HCL 20 MG TAB PO SCH (08:46)
[2017-07-11] MEDS: LITHIUM CARBONATE ER 300 MG TAB PO SCH (08:47)
[2017-07-11] MEDS: CHOLECALCIFEROL VIT D3 1,000 UNITS TAB PO SCH (08:47)
[2017-07-11] MEDS: risperiDONE 2 MG TAB PO SCH (08:47)
[2017-07-11] MEDS: lamoTRIgine 100 MG TAB PO SCH (08:47)
[2017-07-11] MEDS: LEVOMEFOLATE CALCIUM 15 MG PO SCH (08:47)
[2017-07-11 08:52] VITALS: BP 134/75; PULSE 91
[2017-07-11] MEDS: LEVOTHYROXINE 25 MCG TAB PO SCH (11:52)
== END 2017-07-11 10:53 | DRG 885 ==
LOC: EDUNIT# → BBEH 18:50
PROVIDERS: ADMIT Psychiatry & Neurology Psychiatry; ATTEND Psychiatry & Neurology Psychiatry
DX: F25.0 Schizoaffective disorder, bipolar type (principal); R03.0 Elevated blood-pressure reading, without diagnosis of hypertension; E03.9 Hypothyroidism, unspecified
CPT/HCPCS: 80305

== ENCOUNTER 2017-07-28 11:31 | Inpatient (IN) | payer OTHER ==
[2017-07-28 12:37] LABS: % IMMATURE GRANULYOCYTES 0.2 % (0.0-1.1); ABSOLUTE IMMATURE GRANULOCYTES 0.03 10^3/uL (0.00-0.10); ADD DIFF? NO; ADD MORPH? NO; ADD SCAN? NO; ATYPICAL LYMPHOCYTE FLAG 0 (0-99); FRAGMENT RBC FLAG 0 (0-99); HEMATOCRIT 39.2 % (40.0-51.0); HEMOGLOBIN 12.9 g/dL (13.7-17.5); LEFT SHIFT FLG 0 (0-99); LIPEMIA HEMOLYSIS FLAG 80 (0-99); MEAN CELL HEMOGLOBIN 30.1 pg (27.9-34.1); MEAN CELL HEMOGLOBIN CONCENTR. 32.9 g/dL (32.4-36.7); MEAN CELL VOLUME 91.4 fL (81.5-99.8); MEAN PLATELET VOLUME 9.7 fL (8.7-11.7); PLATELET CLUMPS FLAG 0 (0-99); PLATELET COUNT 337 10^3/uL (150-400); RED BLOOD CELL COUNT 4.29 10^6/uL (4.40-6.38); RED CELL DISTRIBUTION WIDTH 14.4 % (11.5-15.2)
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
[2017-07-28 12:56] LABS: ANION GAP 14 mEq/L (8-16); CALCIUM 9.6 mg/dL (8.5-10.4); CARBON DIOXIDE 23 mEq/l (22-31); CHLORIDE 104 mEq/L (97-110); CREATININE 0.8 mg/dL (0.7-1.3); ETHANOL SERUM < 10 mg/dL (0-10); GLOMERULAR FILTRATION RATE > 60; GLUCOSE 95 mg/dL (70-100); POTASSIUM 4.1 mEq/L (3.5-5.2); SODIUM 141 mEq/L (134-144)
[2017-07-28 13:02] LABS: PHENCYCLIDINE URINE BCH < 6 ng/ml (NEGATIVE); PHENCYCLIDINE URINE BCH NEGATIVE (NEGATIVE); TETRAHYDROCANNABINOL URINE 31 ng/mL (NEGATIVE); TETRAHYDROCANNABINOL URINE NEGATIVE (NEGATIVE)
[2017-07-28] MEDS ORDERED: LORazepam 1 MG TAB PO ONE ×2 (19:47→22:57)
[2017-07-28] MEDS ORDERED: risperiDONE 2 MG TAB PO ONE (21:16)
[2017-07-28] MEDS ORDERED: LITHIUM CARBONATE 300 MG TAB ONE (21:22)
[2017-07-28] MEDS ORDERED: LITHIUM CARBONATE 300 MG TAB PO ONE (21:30)
[2017-07-29] MEDS ORDERED: LEVOTHYROXINE 50 MCG TAB PO SCH (07:25)
[2017-07-29] MEDS ORDERED: NICOTINE POLACRILEX 2 MG GUM B PRN (07:47)
[2017-07-29] MEDS ORDERED: LITHIUM CARBONATE 300 MG TAB PO ONE (08:06)
[2017-07-29] MEDS ORDERED: lamoTRIgine 100 MG TAB PO ONE (08:06)
[2017-07-29] MEDS ORDERED: ACETAMINOPHEN 325 MG TAB PO PRN (12:39)
[2017-07-29] MEDS ORDERED: MAG HYDROX/AL HYDROX/SIMETH 30 ML UDCUP PO PRN (12:39)
[2017-07-29] MEDS ORDERED: MAGNESIUM HYDROXIDE 30 ML UDCUP PO PRN (12:39)
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
[2017-07-29] MEDS: risperiDONE 2 MG TAB PO SCH (20:42)
[2017-07-29] MEDS: LITHIUM CARBONATE ER 300 MG TAB PO SCH (20:42)
[2017-07-29] MEDS: LORazepam 1 MG TAB PO SCH (20:43)
[2017-07-29] MEDS: diphenhydrAMINE 50 MG CAP PO SCH (20:43)
[2017-07-30 08:38] LABS: LITHIUM 0.7 mEq/L (0.6-1.2)
[2017-07-30] MEDS: BENZTROPINE MESYLATE 1 MG TAB PO SCH (08:43)
[2017-07-30] MEDS: PROPRANOLOL SR 80 MG CAP PO SCH (08:44)
[2017-07-30] MEDS: lamoTRIgine 100 MG TAB PO SCH (08:45)
[2017-07-30] MEDS: LITHIUM CARBONATE ER 300 MG TAB PO SCH ×2 (08:47→18:31)
[2017-07-30] MEDS: CHOLECALCIFEROL VIT D3 1,000 UNITS TAB PO SCH (09:42)
[2017-07-30] MEDS: LEVOMEFOLATE CALCIUM 15 MG PO SCH (09:43)
[2017-07-30] MEDS: LEVOTHYROXINE 50 MCG TAB PO SCH (09:55)
--- NOTE | 2017-07-30 12:19 | SOAPPROG ---
SOAP Progress Note Assessment/Plan: Assessment: 36 yo single man with h/o shizoaffective disorder, bipolar type and cannabis use disorder, severe who is well-known to unit for 3 prior admissions this year. He was recently admitted 06/27/17 - 07/11/17 under similar circumstances. Plan: 07/30/17 12:15 1. Patient is pleasant, cooperative and participating in groups. 2. Continue on current med regimen. Patient says he doesn't want to change any meds. Initially he said he wanted to be "off the Risperdal" but says he's changed his mind. 3. CCM - patient appears very stable and close to baseline compared with previous admissions. 4. [place] level was 0.7 this AM. Subjective: Met with patient, reviewed chart and d/w staff. Patient has gone to all groups while on unit so far. This AM, he is pacing groves which is typical for him. When MD asks if he feels agitated or restless like he can't stop moving, he says, "no , it's not that...I just feel like I need the exercise." Patient says when he is at [facility], he doesn't pace as much as here. Patient denies any hallucinations, shows no signs of paranoia or delusions, no manic sxs present and he denies any depression. He denies any thoughts, plan or intent to hurt himself or anyone else. Patient is compliant with all his meds. Objective: Vital Signs Temp Pulse Resp BP Pulse Ox 36.7 C 109 H 14 131/72 H 93 07/30/17 06:00 07/30/17 06:00 07/30/17 06:00 07/30/17 06:00 07/30/17 06:00 MSE: Affect: Flat Mood: "Good" TP: Linear for purposes of short conversation TC: Denies any SI/HI, denies AH/VH, paranoia, IOR Insight/Judgment: Poor - Time Spent With Patient Time Spent With Patient: 20" - Pending Discharge Pending Discharge Within 24 Hours: No Pending Discharge Within 48 Hours: No ICD10 Worksheet Patient Problems: Problems Problem Status Onset Acute psychosis Acute Agitation Acute Altered mental status Acute Bipolar 1 disorder Acute Cannabis use disorder, severe, dependence Acute Schizophrenia Acute
[2017-07-30] MEDS: LORazepam 0.5 MG TAB PO PRN (12:57)
[2017-07-30] MEDS: OLANZapine 5 MG TAB PO PRN (12:57)
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
[2017-07-30] MEDS: risperiDONE 2 MG TAB PO SCH (18:31)
[2017-07-30] MEDS: diphenhydrAMINE 50 MG CAP PO SCH (18:31)
[2017-07-30] MEDS: LORazepam 1 MG TAB PO SCH (18:31)
[2017-07-31] MEDS: PROPRANOLOL SR 80 MG CAP PO SCH (08:17)
[2017-07-31] MEDS: lamoTRIgine 100 MG TAB PO SCH (08:17)
[2017-07-31] MEDS: LITHIUM CARBONATE ER 300 MG TAB PO SCH ×2 (08:18→20:33)
[2017-07-31] MEDS: LEVOMEFOLATE CALCIUM 15 MG PO SCH (08:18)
[2017-07-31] MEDS: LEVOTHYROXINE 50 MCG TAB PO SCH (08:18)
[2017-07-31] MEDS: CHOLECALCIFEROL VIT D3 1,000 UNITS TAB PO SCH (08:18)
[2017-07-31] MEDS: BENZTROPINE MESYLATE 1 MG TAB PO SCH (08:18)
--- NOTE | 2017-07-31 15:58 | SOAPPROG ---
SOAP Progress Note Assessment/Plan: Assessment: 36 yo single man with h/o shizoaffective disorder, bipolar type and cannabis use disorder, severe who is well-known to unit for 3 prior admissions this year. He was recently admitted 06/27/17 - 07/11/17 under similar circumstances. Plan: 07/30/17 12:15 1. Patient is pleasant, cooperative and participating in groups. 2. Continue on current med regimen. Patient says he doesn't want to change any meds. Initially he said he wanted to be "off the Risperdal" but says he's changed his mind. 3. CCM - patient appears very stable and close to baseline compared with previous admissions. 4. [place] level was 0.7 this AM. 07/31/17 15:53 1. CCM - patient is stable, no change to meds at this time 2. It's likely patient is experiencing some THC w/d which may contribute to his irritability and tachycardia. Subjective: Met with patient, reviewed chart and d/w staff. Patient is pacing the hallways, but does go to groups though he usually sits in recliner and does not participate. Staff report patient was confused yesterday. He kept asking [employer] where a former patient was. When staff explained the patient had been discharged, Travis didn't seem to process this information very well b/c he asked the same question again later. At lunch time yesterday when [facility] was visiting, patient was annoyed and cursed at staff. However, he did not yell or become physically aggressive. [facility] later said it was b/c he didn't like what was served for lunch. Patient seemed noticeably calmer after [facility] left. Today, patient is calm, pleasant and cooperative. When MD reminded him what happened yesterday, he said, "I can just go to my room if I need to calm down." MD encouraged him to do this. He denies any thoughts, plan or intent to hurt himself or anyone else. He denies any urges to break things and denies feeling agitated or anxious right now. Objective: Vital Signs Temp Pulse Resp BP Pulse Ox 36.8 C 102 H 12 118/71 93 07/31/17 06:00 07/31/17 08:17 07/31/17 06:00 07/31/17 08:17 07/31/17 06:00 MSE: Affect: Euthymic Mood: "OK" TP: Linear TC: No SI/HI, no AH/VH Insight/ Judgment: Poor - Time Spent With Patient Time Spent With Patient: 20" - Pending Discharge Pending Discharge Within 24 Hours: No Pending Discharge Within 48 Hours: No ICD10 Worksheet Patient Problems: Problems Problem Status Onset Acute psychosis Acute Agitation Acute Altered mental status Acute Bipolar 1 disorder Acute Cannabis use disorder, severe, dependence Acute Schizophrenia Acute
[2017-07-31] MEDS: LORazepam 1 MG TAB PO SCH (20:33)
[2017-07-31] MEDS: risperiDONE 2 MG TAB PO SCH (20:34)
[2017-07-31] MEDS: diphenhydrAMINE 50 MG CAP PO SCH (20:37)
[2017-08-01] MEDS: lamoTRIgine 100 MG TAB PO SCH (08:34)
[2017-08-01] MEDS: PROPRANOLOL SR 80 MG CAP PO SCH (08:34)
[2017-08-01] MEDS: CHOLECALCIFEROL VIT D3 1,000 UNITS TAB PO SCH (08:34)
[2017-08-01] MEDS: LITHIUM CARBONATE ER 300 MG TAB PO SCH ×2 (08:34→21:09)
[2017-08-01] MEDS: BENZTROPINE MESYLATE 1 MG TAB PO SCH (08:34)
[2017-08-01] MEDS: LEVOMEFOLATE CALCIUM 15 MG PO SCH (08:35)
[2017-08-01] MEDS: LEVOTHYROXINE 50 MCG TAB PO SCH (09:46)
[2017-08-01] MEDS: OLANZapine 5 MG TAB PO PRN ×3 (13:09→21:10)
[2017-08-01] MEDS: LORazepam 0.5 MG TAB PO PRN ×2 (13:40→17:41)
--- NOTE | 2017-08-01 17:24 | SOAPPROG ---
SOAP Progress Note Assessment/Plan: Assessment: Plan: 08/01/17 17:24 Waxing and waning course continues. Parents supplied detailed medication trial history and are in favor of retrial of Geodon. Dr. Paul is in favor of this. I reviewed the record and note that the Geodon was started 09/13 and d/c' d mid-summer by Dr. Paul at pt's request. It was after this that he became more agitated and psychotic, presenting as unable to maintain without an antipsychotic (change in maintenance status from previous.) He was admitted to our service at that time and we restarted Geodon. Pt's mother adamantly disagreed with this and insisted that we try Risperdal. This was done and has not been as effective as previous trials of Geodon. Considering this history, it seems prudent to retry Geodon. I will attempt to discuss this with pt in the morning when he will hopefully be more lucid. Subjective: Pt seen, discussed with staff, chart reviewed. Case discussed with Raj Guzman. He was calm and appropriately interactive with me yesterday, though today is agitated, pacing rapidly, talking to himself. Clearly disorganized, internally preoccupied. Pt's father present and agrees that he is more agitated today. Given PRN Zyprexa and Ativan with limited benefit. Unable to verbalize feelings. No aggression noted. Objective: Vital Signs Temp Pulse Resp BP Pulse Ox 36.7 C 106 H 14 116/72 95 08/01/17 06:00 08/01/17 06:00 08/01/17 06:00 08/01/17 06:00 08/01/17 06:00 - Time Spent With Patient Time Spent With Patient: 25" ICD10 Worksheet Patient Problems: Problems Problem Status Onset Acute psychosis Acute Agitation Acute Altered mental status Acute Bipolar 1 disorder Acute Cannabis use disorder, severe, dependence Acute Schizophrenia Acute
[2017-08-01] MEDS: risperiDONE 2 MG TAB PO SCH (21:09)
[2017-08-01] MEDS: diphenhydrAMINE 50 MG CAP PO SCH (21:09)
[2017-08-01] MEDS: LORazepam 1 MG TAB PO SCH (21:10)
[2017-08-02] MEDS: CHOLECALCIFEROL VIT D3 1,000 UNITS TAB PO SCH (08:13)
[2017-08-02] MEDS: PROPRANOLOL SR 80 MG CAP PO SCH (08:13)
[2017-08-02] MEDS: BENZTROPINE MESYLATE 1 MG TAB PO SCH (08:13)
[2017-08-02] MEDS: lamoTRIgine 100 MG TAB PO SCH (08:13)
[2017-08-02] MEDS: LEVOTHYROXINE 50 MCG TAB PO SCH (08:14)
[2017-08-02] MEDS: LITHIUM CARBONATE ER 300 MG TAB PO SCH ×2 (08:14→20:11)
[2017-08-02] MEDS: LEVOMEFOLATE CALCIUM 15 MG PO SCH (08:15)
[2017-08-02] MEDS: LORazepam 0.5 MG TAB PO PRN ×2 (10:08→16:46)
[2017-08-02] MEDS ORDERED: risperiDONE 2 MG TAB PO SCH (11:23)
[2017-08-02] MEDS: ZIPRASIDONE HCL 20 MG CAP PO SCH (16:46)
--- NOTE | 2017-08-02 19:38 | SOAPPROG ---
SOAP Progress Note Assessment/Plan: Assessment: Plan: 08/01/17 17:24 Waxing and waning course continues. Parents supplied detailed medication trial history and are in favor of retrial of Geodon. Dr. Paul is in favor of this. I reviewed the record and note that the Geodon was started 09/13 and d/c' d mid-summer by Dr. Paul at pt's request. It was after this that he became more agitated and psychotic, presenting as unable to maintain without an antipsychotic (change in maintenance status from previous.) He was admitted to our service at that time and we restarted Geodon. Pt's mother adamantly disagreed with this and insisted that we try Risperdal. This was done and has not been as effective as previous trials of Geodon. Considering this history, it seems prudent to retry Geodon. I will attempt to discuss this with pt in the morning when he will hopefully be more lucid. 08/02/17 19:39 Improved overall, but in context of continued up and down pattern. Will start Geodon crossover. The risks, benefits and alternatives of this are reviewed with him and he agrees. I discussed the risks of combining multiple neuroleptics and he reveals reasonable understanding of plan to limit amount of Risperdal and PRN Zyprexa. Subjective: Pt seen, discussed with staff. Reports feeling "pretty good." Less agitated, more interactive, less internally preoccupied. Discussed medications and he agrees that he has done best in the past on Geodon. He agrees to restart a crossover with Geodon and Risperdal. He is less agitated and more linear. No aggression yesterday despite some behavioral cues. Objective: Vital Signs Temp Pulse Resp BP Pulse Ox 36.8 C 114 H 16 119/66 99 08/02/17 06:00 08/02/17 06:00 08/02/17 06:00 08/02/17 06:00 08/02/17 06:00 MSE: Calm, coop. Affect is constricted, stable, approp. Mood is "good." TP generally linear. TC reveals no evidence of paranoia, denies AH's. - Time Spent With Patient Time Spent With Patient: 25" ICD10 Worksheet Patient Problems: Problems Problem Status Onset Acute psychosis Acute Agitation Acute Altered mental status Acute Bipolar 1 disorder Acute Cannabis use disorder, severe, dependence Acute Schizophrenia Acute
[2017-08-02] MEDS: LORazepam 1 MG TAB PO SCH (20:10)
[2017-08-02] MEDS: diphenhydrAMINE 50 MG CAP PO SCH (20:11)
[2017-08-03] MEDS: ZIPRASIDONE HCL 20 MG CAP PO SCH ×2 (08:22→17:13)
[2017-08-03] MEDS: LITHIUM CARBONATE ER 300 MG TAB PO SCH ×2 (08:22→20:33)
[2017-08-03] MEDS: BENZTROPINE MESYLATE 1 MG TAB PO SCH (08:22)
[2017-08-03] MEDS: PROPRANOLOL SR 80 MG CAP PO SCH (08:22)
[2017-08-03] MEDS: CHOLECALCIFEROL VIT D3 1,000 UNITS TAB PO SCH (08:23)
[2017-08-03] MEDS: lamoTRIgine 100 MG TAB PO SCH (08:23)
[2017-08-03] MEDS: LEVOMEFOLATE CALCIUM 15 MG PO SCH (08:24)
[2017-08-03] MEDS: LEVOTHYROXINE 50 MCG TAB PO SCH (10:50)
[2017-08-03] MEDS: LORazepam 0.5 MG TAB PO PRN (17:12)
--- NOTE | 2017-08-03 18:53 | SOAPPROG ---
SOAP Progress Note Assessment/Plan: Assessment: Plan: 08/01/17 17:24 Waxing and waning course continues. Parents supplied detailed medication trial history and are in favor of retrial of Geodon. Dr. Paul is in favor of this. I reviewed the record and note that the Geodon was started 09/13 and d/c' d mid-summer by Dr. Paul at pt's request. It was after this that he became more agitated and psychotic, presenting as unable to maintain without an antipsychotic (change in maintenance status from previous.) He was admitted to our service at that time and we restarted Geodon. Pt's mother adamantly disagreed with this and insisted that we try Risperdal. This was done and has not been as effective as previous trials of Geodon. Considering this history, it seems prudent to retry Geodon. I will attempt to discuss this with pt in the morning when he will hopefully be more lucid. 08/02/17 19:39 Improved overall, but in context of continued up and down pattern. Will start Geodon crossover. The risks, benefits and alternatives of this are reviewed with him and he agrees. I discussed the risks of combining multiple neuroleptics and he reveals reasonable understanding of plan to limit amount of Risperdal and PRN Zyprexa. 08/03/17 18:53 Psychosis: Calmer. Psychosis less prominent. No aggression. Continue crossover from Risperdal to Geodon. Subjective: Pt seen, discussed with staff. Reports feeling "pretty good." Calmer with less psychomotor agitation. Compliant with meds. No aggression. Objective: Vital Signs Temp Pulse Resp BP Pulse Ox 36.4 C 92 16 130/65 H 98 08/03/17 06:00 08/03/17 06:00 08/03/17 06:00 08/03/17 06:00 08/03/17 06:00 MSE: Calm, coop. Affect is constricted, stable, approp. Mood is "good." TP generally linear, though derails easily. TC reveals reasonable reality testing , no mention of paranoid thoughts or IOR's. - Time Spent With Patient Time Spent With Patient: 15" ICD10 Worksheet Patient Problems: Problems Problem Status Onset Acute psychosis Acute Agitation Acute Altered mental status Acute Bipolar 1 disorder Acute Cannabis use disorder, severe, dependence Acute Schizophrenia Acute
[2017-08-03] MEDS: LORazepam 1 MG TAB PO SCH (20:33)
[2017-08-03] MEDS: diphenhydrAMINE 50 MG CAP PO SCH (20:34)
[2017-08-03] MEDS: risperiDONE 2 MG TAB PO SCH (20:34)
[2017-08-04] MEDS: LEVOMEFOLATE CALCIUM 15 MG PO SCH (07:42)
[2017-08-04] MEDS: lamoTRIgine 100 MG TAB PO SCH (09:01)
[2017-08-04] MEDS: LITHIUM CARBONATE ER 300 MG TAB PO SCH ×2 (09:01→18:45)
[2017-08-04] MEDS: LEVOTHYROXINE 50 MCG TAB PO SCH (09:01)
[2017-08-04] MEDS: ZIPRASIDONE HCL 40 MG CAP PO SCH ×2 (09:01→16:53)
[2017-08-04] MEDS: BENZTROPINE MESYLATE 1 MG TAB PO SCH (09:02)
[2017-08-04] MEDS: PROPRANOLOL SR 80 MG CAP PO SCH (09:02)
[2017-08-04] MEDS: CHOLECALCIFEROL VIT D3 1,000 UNITS TAB PO SCH (09:02)
[2017-08-04] MEDS: diphenhydrAMINE 50 MG CAP PO SCH (18:45)
[2017-08-04] MEDS: risperiDONE 2 MG TAB PO SCH (18:45)
[2017-08-04] MEDS: LORazepam 1 MG TAB PO SCH (18:45)
--- NOTE | 2017-08-04 21:30 | SOAPPROG ---
SOAP Progress Note Assessment/Plan: Assessment: Plan: 08/01/17 17:24 Waxing and waning course continues. Parents supplied detailed medication trial history and are in favor of retrial of Geodon. Dr. Paul is in favor of this. I reviewed the record and note that the Geodon was started 09/13 and d/c' d mid-summer by Dr. Paul at pt's request. It was after this that he became more agitated and psychotic, presenting as unable to maintain without an antipsychotic (change in maintenance status from previous.) He was admitted to our service at that time and we restarted Geodon. Pt's mother adamantly disagreed with this and insisted that we try Risperdal. This was done and has not been as effective as previous trials of Geodon. Considering this history, it seems prudent to retry Geodon. I will attempt to discuss this with pt in the morning when he will hopefully be more lucid. 08/02/17 19:39 Improved overall, but in context of continued up and down pattern. Will start Geodon crossover. The risks, benefits and alternatives of this are reviewed with him and he agrees. I discussed the risks of combining multiple neuroleptics and he reveals reasonable understanding of plan to limit amount of Risperdal and PRN Zyprexa. 08/03/17 18:53 Psychosis: Calmer. Psychosis less prominent. No aggression. Continue crossover from Risperdal to Geodon. 08/04/17 21:29 Psychosis. Improving. Continue crossover. Subjective: Pt seen, discussed with staff. Cooperative and interactive though brief. Less psychomotor agitation. Compliant with all meds. States he is happy about med change to Geodon, "Less side effects." Objective: Vital Signs Temp Pulse Resp BP Pulse Ox 36.3 C 100 20 120/75 96 08/04/17 06:00 08/04/17 06:00 08/04/17 06:00 08/04/17 06:00 08/04/17 06:00 MSE: Calm, coop. Appears better groomed. Affect is brighter, stable, apporp. Mood is "good." TP linear for brief periods, some continued internal preoccupation. - Time Spent With Patient Time Spent With Patient: 15" ICD10 Worksheet Patient Problems: Problems Problem Status Onset Acute psychosis Acute Agitation Acute Altered mental status Acute Bipolar 1 disorder Acute Cannabis use disorder, severe, dependence Acute Schizophrenia Acute
[2017-08-05] MEDS: CHOLECALCIFEROL VIT D3 1,000 UNITS TAB PO SCH (08:43)
[2017-08-05] MEDS: PROPRANOLOL SR 80 MG CAP PO SCH (08:43)
[2017-08-05] MEDS: BENZTROPINE MESYLATE 1 MG TAB PO SCH (08:43)
[2017-08-05] MEDS: LITHIUM CARBONATE ER 300 MG TAB PO SCH ×2 (08:43→20:32)
[2017-08-05] MEDS: lamoTRIgine 100 MG TAB PO SCH (08:44)
[2017-08-05] MEDS: ZIPRASIDONE HCL 40 MG CAP PO SCH ×2 (08:44→19:04)
[2017-08-05] MEDS: LEVOMEFOLATE CALCIUM 15 MG PO SCH (08:49)
[2017-08-05] MEDS: LEVOTHYROXINE 50 MCG TAB PO SCH (11:22)
--- NOTE | 2017-08-05 14:11 | SOAPPROG ---
SOAP Progress Note Assessment/Plan: Assessment: 36 yo single man with h/o shizoaffective disorder, bipolar type and cannabis use disorder, severe who is well-known to unit for 3 prior admissions this year. He was recently admitted 06/27/17 - 07/11/17 under similar circumstances[address] From Dr. Acosta's recent notes: 08/01/17 17:24 Waxing and waning course continues. Parents supplied detailed medication trial history and are in favor of retrial of Geodon. Dr. Paul is in favor of this. I reviewed the record and note that the Geodon was started 09/13 and d/c' d mid-summer by Dr. Paul at pt's request. It was after this that he became more agitated and psychotic, presenting as unable to maintain without an antipsychotic (change in maintenance status from previous.) He was admitted to our service at that time and we restarted Geodon. Pt's mother adamantly disagreed with this and insisted that we try Risperdal. This was done and has not been as effective as previous trials of Geodon. Considering this history, it seems prudent to retry Geodon. I will attempt to discuss this with pt in the morning when he will hopefully be more lucid. 08/02/17 19:39 Improved overall, but in context of continued up and down pattern. Will start Geodon crossover. The risks, benefits and alternatives of this are reviewed with him and he agrees. I discussed the risks of combining multiple neuroleptics and he reveals reasonable understanding of plan to limit amount of Risperdal and PRN Zyprexa. 08/03/17 18:53 Psychosis: Calmer. Psychosis less prominent. No aggression. Continue crossover from Risperdal to Geodon. 08/04/17 21:29 Psychosis. Improving. Continue crossover. 08/05/17 14:08 1. Patient continues to show signs of improvement on Geodon. 2. CCM Subjective: Patient is more pleasant, calm and interactive with MD. He is still pacing halls , but able to stop and carry on conversation at greater length than last weekend. He says Geodon is "more helpful" than Risperdal and denies any complaints or SE's. No AH/VH, no IOR or other signs of psychosis. Objective: Vital Signs Temp Pulse Resp BP Pulse Ox 36.6 C 84 20 113/62 98 08/05/17 06:00 08/05/17 06:00 08/05/17 06:00 08/05/17 06:00 08/05/17 06:00 MSE: Calmer, less anxious, more pleasant. Affect: Euthymic, less constricted Mood: "Good" TP: Linear TC: Denies any AH/VH, no SI/HI, no other s/s of psychosis Insight/Judgment: Improving - Time Spent With Patient Time Spent With Patient: 20" - Pending Discharge Pending Discharge Within 24 Hours: No Pending Discharge Within 48 Hours: No ICD10 Worksheet Patient Problems: Problems Problem Status Onset Acute psychosis Acute Agitation Acute Altered mental status Acute Bipolar 1 disorder Acute Cannabis use disorder, severe, dependence Acute Schizophrenia Acute
[2017-08-05] MEDS: risperiDONE 2 MG TAB PO SCH (20:32)
[2017-08-05] MEDS: LORazepam 1 MG TAB PO SCH (20:32)
[2017-08-05] MEDS: diphenhydrAMINE 50 MG CAP PO SCH (20:32)
[2017-08-06] MEDS: lamoTRIgine 100 MG TAB PO SCH (08:22)
[2017-08-06] MEDS: LITHIUM CARBONATE ER 300 MG TAB PO SCH ×2 (08:22→19:23)
[2017-08-06] MEDS: CHOLECALCIFEROL VIT D3 1,000 UNITS TAB PO SCH (08:23)
[2017-08-06] MEDS: BENZTROPINE MESYLATE 1 MG TAB PO SCH (08:23)
[2017-08-06] MEDS: ZIPRASIDONE HCL 40 MG CAP PO SCH ×2 (08:23→17:13)
[2017-08-06] MEDS: PROPRANOLOL SR 80 MG CAP PO SCH (08:23)
[2017-08-06] MEDS: LEVOTHYROXINE 50 MCG TAB PO SCH (10:00)
[2017-08-06] MEDS: LEVOMEFOLATE CALCIUM 15 MG PO SCH (11:52)
--- NOTE | 2017-08-06 13:25 | SOAPPROG ---
SOAP Progress Note Assessment/Plan: Assessment: 36 yo single man with h/o shizoaffective disorder, bipolar type and cannabis use disorder, severe who is well-known to unit for 3 prior admissions this year. He was recently admitted 06/27/17 - 07/11/17 under [address] circumstances[address]. Acosta's recent notes: 08/01/17 17:24 Waxing and waning course continues. Parents supplied detailed medication trial history and are in favor of retrial of Geodon. Dr. Paul is in favor of this. I reviewed the record and note that the Geodon was started 09/13 and d/c' d mid-summer by Dr. Paul at pt's request. It was after this that he became more agitated and psychotic, presenting as unable to maintain without an antipsychotic (change in maintenance status from previous.) He was admitted to our service at that time and we restarted Geodon. Pt's mother adamantly disagreed with this and insisted that we try Risperdal. This was done and has not been as effective as previous trials of Geodon. Considering this history, it seems prudent to retry Geodon. I will attempt to discuss this with pt in the morning when he will hopefully be more lucid. 08/02/17 19:39 Improved overall, but in context of continued up and down pattern. Will start Geodon crossover. The risks, benefits and alternatives of this are reviewed with him and he agrees. I discussed the risks of combining multiple neuroleptics and he reveals reasonable understanding of plan to limit amount of Risperdal and PRN Zyprexa. 08/03/17 18:53 Psychosis: Calmer. Psychosis less prominent. No aggression. Continue crossover from Risperdal to Geodon. 08/04/17 21:29 Psychosis. Improving. Continue crossover. 08/05/17 14:08 1. Patient continues to show signs of improvement on Geodon. 2. CCM 08/06/17 13:22 1. CCM - stable on new med 2. No complaints or SE's from Geodon Subjective: Met with patient, reviewed chart and d/w staff. Patient is sitting in dining room starting to eat lunch. He is smiling and interacting appropriately with peers on unit. He is attending groups, but usually sits away from table and does not actively participate. He says that "Geodon is working" and feels it is helping him feel "calmer and more relaxed." He presents as less paranoid and irritable. Patient told CC that he plans to continue "smoking pot" after he leaves. He doesn't want to go back to [facility] b/c he says, "they'll just kick me out" if he smokes THC. Objective: Vital Signs Temp Pulse Resp BP Pulse Ox 36.6 C 86 14 142/77 H 92 08/05/17 06:00 08/06/17 06:00 08/06/17 06:00 08/06/17 06:00 08/06/17 06:00 MSE: Affect: Euthymic Mood: "OK" TP: Linear TC: Denies any SI/HI, no active hallucinations, denies paranoia Insight/Judgment: Poor - Time Spent With Patient Time Spent With Patient: 20" - Pending Discharge Pending Discharge Within 24 Hours: No Pending Discharge Within 48 Hours: No ICD10 Worksheet Patient Problems: Problems Problem Status Onset Acute psychosis Acute Agitation Acute Altered mental status Acute Bipolar 1 disorder Acute Cannabis use disorder, severe, dependence Acute Schizophrenia Acute
[2017-08-06] MEDS: diphenhydrAMINE 50 MG CAP PO SCH (19:23)
[2017-08-06] MEDS: LORazepam 1 MG TAB PO SCH (19:23)
[2017-08-06] MEDS: risperiDONE 2 MG TAB PO SCH (19:24)
[2017-08-07] MEDS: lamoTRIgine 100 MG TAB PO SCH (08:34)
[2017-08-07] MEDS: LITHIUM CARBONATE ER 300 MG TAB PO SCH ×2 (08:34→20:44)
[2017-08-07] MEDS: LEVOTHYROXINE 50 MCG TAB PO SCH (08:35)
[2017-08-07] MEDS: CHOLECALCIFEROL VIT D3 1,000 UNITS TAB PO SCH (08:35)
[2017-08-07] MEDS: PROPRANOLOL SR 80 MG CAP PO SCH (08:36)
[2017-08-07] MEDS: BENZTROPINE MESYLATE 1 MG TAB PO SCH (08:36)
[2017-08-07] MEDS: ZIPRASIDONE HCL 40 MG CAP PO SCH ×2 (09:00→17:29)
[2017-08-07] MEDS ORDERED: BENZTROPINE MESYLATE 1 MG TAB PO PRN (10:28)
[2017-08-07] MEDS ORDERED: ZIPRASIDONE HCL 40 MG CAP PO SCH (10:29)
--- NOTE | 2017-08-07 11:26 | SOAPPROG ---
SOAP Progress Note Assessment/Plan: Assessment: Plan: 08/01/17 17:24 Waxing and waning course continues. Parents supplied detailed medication trial history and are in favor of retrial of Geodon. Dr. Paul is in favor of this. I reviewed the record and note that the Geodon was started 09/13 and d/c' d mid-summer by Dr. Paul at pt's request. It was after this that he became more agitated and psychotic, presenting as unable to maintain without an antipsychotic (change in maintenance status from previous.) He was admitted to our service at that time and we restarted Geodon. Pt's mother adamantly disagreed with this and insisted that we try Risperdal. This was done and has not been as effective as previous trials of Geodon. Considering this history, it seems prudent to retry Geodon. I will attempt to discuss this with pt in the morning when he will hopefully be more lucid. 08/02/17 19:39 Improved overall, but in context of continued up and down pattern. Will start Geodon crossover. The risks, benefits and alternatives of this are reviewed with him and he agrees. I discussed the risks of combining multiple neuroleptics and he reveals reasonable understanding of plan to limit amount of Risperdal and PRN Zyprexa. 08/03/17 18:53 Psychosis: Calmer. Psychosis less prominent. No aggression. Continue crossover from Risperdal to Geodon. 08/04/17 21:29 Psychosis. Improving. Continue crossover. 08/07/17 11:28 Psychosis: Much improved overall. Continue crossover. Subjective: Pt seen, discussed with staff. Reports feeling "just fine." Discussed d/c plan and he is adamant about not returning to [facility]. He is also resistant to entering [facility] program. He states, "I just don't want to be in any program right now. I did well for eight years on my own." I attempted to discuss how he has been in a negative cycle over the past several months and he is unable to appreciate this. He states, "I have only been in the hospital because the people at [facility] are so stupid. I never did anything and they keep sending me back up here." Notes benefit from Geodon with lower side effects such as sedation and tremor. Objective: Vital Signs Temp Pulse Resp BP Pulse Ox 36.8 C 103 H 20 134/85 H 100 08/07/17 06:00 08/07/17 06:00 08/07/17 06:00 08/07/17 06:00 08/07/17 06:00 MSE: Calm, coop. Affect is euthymic, stable, approp. Mood is "good." TP generally linear. TC reveals some paranoia, thinking his parents and outpatient team are acting against him. No internal preoccupation or RIS noted. - Time Spent With Patient Time Spent With Patient: 25" ICD10 Worksheet Patient Problems: Problems Problem Status Onset Acute psychosis Acute Agitation Acute Altered mental status Acute Bipolar 1 disorder Acute Cannabis use disorder, severe, dependence Acute Schizophrenia Acute
[2017-08-07] MEDS: LEVOMEFOLATE CALCIUM 15 MG PO SCH (12:53)
[2017-08-07] MEDS: ZIPRASIDONE HCL 20 MG CAP PO SCH (17:28)
[2017-08-07] MEDS: risperiDONE 2 MG TAB PO SCH (20:43)
[2017-08-07] MEDS: diphenhydrAMINE 50 MG CAP PO SCH (20:43)
[2017-08-07] MEDS: LORazepam 1 MG TAB PO SCH (22:03)
[2017-08-08] MEDS: lamoTRIgine 100 MG TAB PO SCH (08:10)
[2017-08-08] MEDS: ZIPRASIDONE HCL 20 MG CAP PO SCH ×2 (08:11→17:50)
[2017-08-08] MEDS: LITHIUM CARBONATE ER 300 MG TAB PO SCH ×2 (08:11→19:57)
[2017-08-08] MEDS: PROPRANOLOL SR 80 MG CAP PO SCH (08:11)
[2017-08-08] MEDS: ZIPRASIDONE HCL 40 MG CAP PO SCH ×2 (08:11→17:50)
[2017-08-08] MEDS: CHOLECALCIFEROL VIT D3 1,000 UNITS TAB PO SCH (08:11)
[2017-08-08] MEDS: LEVOMEFOLATE CALCIUM 15 MG PO SCH (09:09)
[2017-08-08] MEDS: LEVOTHYROXINE 50 MCG TAB PO SCH (10:42)
--- NOTE | 2017-08-08 16:18 | SOAPPROG ---
SOAP Progress Note Assessment/Plan: Assessment: Plan: 08/01/17 17:24 Waxing and waning course continues. Parents supplied detailed medication trial history and are in favor of retrial of Geodon. Dr. Paul is in favor of this. I reviewed the record and note that the Geodon was started 09/13 and d/c' d mid-summer by Dr. Paul at pt's request. It was after this that he became more agitated and psychotic, presenting as unable to maintain without an antipsychotic (change in maintenance status from previous.) He was admitted to our service at that time and we restarted Geodon. Pt's mother adamantly disagreed with this and insisted that we try Risperdal. This was done and has not been as effective as previous trials of Geodon. Considering this history, it seems prudent to retry Geodon. I will attempt to discuss this with pt in the morning when he will hopefully be more lucid. 08/02/17 19:39 Improved overall, but in context of continued up and down pattern. Will start Geodon crossover. The risks, benefits and alternatives of this are reviewed with him and he agrees. I discussed the risks of combining multiple neuroleptics and he reveals reasonable understanding of plan to limit amount of Risperdal and PRN Zyprexa. 08/03/17 18:53 Psychosis: Calmer. Psychosis less prominent. No aggression. Continue crossover from Risperdal to Geodon. 08/04/17 21:29 Psychosis. Improving. Continue crossover. 08/07/17 11:28 Psychosis: Much improved overall. Continue crossover. 08/08/17 16:19 PSychosis: Continued improvement. CCM. Subjective: Pt seen, discussed with staff. Reports feeling "really good." REmains active, but less agitated. He acknowledges feeling "bored" leading to his pacing. Continues to appreciate the Geodon. States today that he agrees to go to on d/c. Objective: Vital Signs Temp Pulse Resp BP Pulse Ox 36.7 C 82 14 127/67 H 96 08/08/17 06:00 08/08/17 08:11 08/08/17 06:00 08/08/17 08:11 08/08/17 06:00 MSE: Calm, coop. Affect is blunted, stable, approp. mood is "good." TP linear. TC reveals continued paranoia. - Time Spent With Patient Time Spent With Patient: 25" ICD10 Worksheet Patient Problems: Problems Problem Status Onset Acute psychosis Acute Agitation Acute Altered mental status Acute Bipolar 1 disorder Acute Cannabis use disorder, severe, dependence Acute Schizophrenia Acute
[2017-08-08] MEDS: LORazepam 1 MG TAB PO SCH (19:57)
[2017-08-08] MEDS: risperiDONE 2 MG TAB PO SCH (19:58)
[2017-08-08] MEDS: diphenhydrAMINE 50 MG CAP PO SCH (19:58)
[2017-08-09 06:14] VITALS: BP 109/59; PULSE 99; RESP 12; TEMP 97.9; O2SAT 94
[2017-08-09] MEDS: PROPRANOLOL SR 80 MG CAP PO SCH (08:18)
[2017-08-09] MEDS: ZIPRASIDONE HCL 40 MG CAP PO SCH (08:19)
[2017-08-09] MEDS: LITHIUM CARBONATE ER 300 MG TAB PO SCH (08:19)
[2017-08-09] MEDS: CHOLECALCIFEROL VIT D3 1,000 UNITS TAB PO SCH (08:19)
[2017-08-09] MEDS: lamoTRIgine 100 MG TAB PO SCH (08:19)
[2017-08-09] MEDS: ZIPRASIDONE HCL 20 MG CAP PO SCH (08:19)
[2017-08-09] MEDS: LEVOMEFOLATE CALCIUM 15 MG PO SCH (08:22)
[2017-08-09] MEDS: LEVOTHYROXINE 50 MCG TAB PO SCH (09:53)
== END 2017-08-09 14:10 | disposition home or self-care (01) | DRG 885 ==
LOC: EDUNIT# → BBEH 07-29 10:45
PROVIDERS: ADMIT Psychiatry & Neurology Psychiatry; ATTEND Psychiatry & Neurology Psychiatry
DX: F25.0 Schizoaffective disorder, bipolar type (principal); F12.20 Cannabis dependence, uncomplicated
CPT/HCPCS: 80307; G0480

== ENCOUNTER 2018-05-23 11:04 | Inpatient (IN) | payer OTHER ==
--- NOTE | 2018-05-23 11:27 | EDPHY ---
H & P Stated Complaint: graveluy disabled. - Medical/Surgical History Hx Asthma: No Hx Chronic Respiratory Disease: No Hx Diabetes: No Hx Cardiac Disease: No Hx Renal Disease: No Hx Cirrhosis: No Hx Alcoholism: No Hx HIV/AIDS: No Hx Splenectomy or Spleen Trauma: No Other PMH: BIPOLAR, HYPOTHYROID, parathyroidectomy, hz pseudoszs, tachycardia - Social History Smoking Status: Heavy smoker Time Seen by Provider: 05/23/18 11:14 HPI/ROS: CHIEF COMPLAINT: M1, gravely disabled HISTORY OF PRESENT ILLNESS: 37-year-old male history of schizoaffective disorder arrives on M1 hold after being placed on M1 hold from balls inhouse over concerns about his ability to care for self, being gravely disabled. Per the M1 report he has been wandering, has been leaving ball some house, has been observed smoking in his room, has been observed drinking water with old cigarettes in it. Denies suicidal or homicidal ideation REVIEW OF SYSTEMS: 10 systems reviewed and negative with the exception of the elements mentioned in the history of present illness PAST MEDICAL & SURGICAL HISTORY: No pertinent medical or surgical history SOCIAL HISTORY:Positive for cigarette PHYSICAL EXAM (Prior to examination, patient consented to physical exam, hands were washed and my usual and customary physical exam procedures followed) 1) GENERAL: poorly kept, foul smelling, alert and oriented. Appears to be in no acute distress. 2) HEAD: Normocephalic, atraumatic 3) HEENT: Pupils equal, round, reactive to light bilaterally. Sclera anicteric. 4) NECK: Full range of motion, no meningeal signs. 5) LUNGS: Clear auscultation bilaterally, no wheezes, no rhonchi, no retractions. 6) HEART: Regular rate and rhythm, no murmur, no heave, no gallop. 7) ABDOMEN: No guarding, no rebound, no focal tenderness, negative McBurney's, negative Sanders's, negative Rovsing's, negative peritoneal sign, 8) MUSCULOSKELETAL: Moving all extremities, no focal areas of tenderness, no obvious trauma. No peripheral edema or discoloration. 9) BACK: No CVA tenderness, no midline vertebral tenderness, no fluctuance, no step-off, no obvious trauma, no visual or palpable abnormality. 10) SKIN: No rash, no petechiae. 11) Psychiatric: Patient is oriented X 3, there is no agitation. DIFFERENTIAL DIAGNOSIS: In no particular order include but limited to suicidal ideation, homicidal ideation, abigail, gravely disabled (Shanice Morris) Constitutional: Initial Vital Signs Temperature (C) 36.7 C 05/23/18 11:18 Heart Rate 81 05/23/18 11:18 Respiratory Rate 17 05/23/18 11:18 Blood Pressure 135/87 H 05/23/18 11:18 O2 Sat (%) 94 05/23/18 11:18 O2 Delivery Mode Room Air Allergies/Adverse Reactions: No Known Allergies Allergy (Verified 07/29/17 08:25) Home Medications: Medication Instructions Recorded Ativan 05/23/18 Ativan 05/23/18 Deplin 05/23/18 Effexor Xr 05/23/18 Fenofibrate 05/23/18 Haldol 05/23/18 LaMICtal 05/23/18 Labetalol HCl 05/23/18 [place] Carbonate 600 mg cap (*) 05/23/18 Synthroid 05/23/18 Vitamin D3 05/23/18 Vraylar 05/23/18 Medical Decision Making ED Course/Re-evaluation: Patient is on M1 hold. He is calm and cooperative agrees to diagnostic studies. I saw this patient independently based on established practice protocols. Care of patient under supervision of secondary supervising physician Dr Chirinos with whom I discussed case. 4:43 p.m.: Patient's father reports patient experiencing increasing anxiety. Will be given Ativan. Awaiting mental health evaluation 5:00 p.m.: Patient has remained calm and cooperative while in the ER. Mental health evaluation pending. Care turned over to Dr. José Fitzgerald. (Shanice Morris) 7:45 p.m. the patient has been accepted at [address] [place] [address] Acosta. Will complete transfer paperwork. (José Fitzgerald) - Data Points Laboratory Results: Laboratory Results 05/23/18 11:45 05/23/18 11:45 05/23/18 05/23/18 05/23/18 11:45 11:45 11:10 WBC 12.74 10^3/uL H 10^3/uL (3.80-9.50) RBC 4.27 10^6/uL L 10^6/uL (4.40-6.38) Hgb 12.4 g/dL L g/dL (13.7-17.5) Hct 37.7 % L % (40.0-51.0) MCV 88.3 fL fL (81.5-99.8) MCH 29.0 pg pg (27.9-34.1) MCHC 32.9 g/dL g/dL (32.4-36.7) RDW 13.5 % % (11.5-15.2) Plt Count 458 10^3/uL H 10^3/uL (150-400) MPV 9.3 fL fL (8.7-11.7) Neut % (Auto) Not Reported Lymph % (Auto) Not Reported Wallace % (Auto) Not Reported Eos % (Auto) Not Reported Baso % (Auto) Not Reported Nucleat RBC Rel Count Not Reported Absolute Neuts (auto) Not Reported Absolute Lymphs (auto) Not Reported Absolute Monos (auto) Not Reported Absolute Eos (auto) Not Reported Absolute Basos (auto) Not Reported Absolute Nucleated RBC Not Reported Immature Gran % Not Reported Seg Neutrophils % 67.0 % % Band Neutrophils % 0.0 % % Lymphocytes % 27.0 % % Monocytes % 3.0 % % Eosinophils % 0.0 % % Basophils % 2.0 % % Metamyelocytes % 0.0 % % Myelocytes % 0.0 % % Promyelocytes % 0.0 % % Blast Cells % 0.0 % % Immature Gran # Not Reported Absolute Seg Neuts 8.54 10^/uL H 10^/uL (1.70-6.50) Absolute Band Neuts 0.00 10^3/uL 10^3/uL (0.00-0.70) Absolute Lymphocytes 3.44 10^3/uL H 10^3/uL (1.00-3.00) Absolute Monocytes 0.38 10^3/uL 10^3/uL (0.30-0.80) Absolute Eosinophils 0.00 10^3/uL L 10^3/uL (0.03-0.40) Absolute Basophils 0.25 10^3/uL H 10^3/uL (0.02-0.10) Absolute Metamyelocyte 0.00 10^3/mL 10^3/mL (0.00-0.00) Absolute Myelocytes 0.00 10^3/mL 10^3/mL (0.00-0.00) Absolute Promyelocytes 0.00 10^3/uL 10^3/uL (0.00-0.00) Absolute Plasma Cells 0.00 10^3/uL 10^3/uL (0.00-0.00) Nucleated RBCs 0 /100 WBC /100 WBC (0-0) Atypical Lymphocytes 1+ H Absolute Blast Cells 0.00 10^3/uL 10^3/uL (0.00-0.00) Plasma Cells % 0.0 % % Platelet Estimate INCREASED H (ADEQ) Sodium 137 mEq/L mEq/L (135-145) Potassium 4.1 mEq/L mEq/L (3.3-5.0) Chloride 104 mEq/L mEq/L (97-110) Carbon Dioxide 23 mEq/l mEq/l (22-31) Anion Gap 10 mEq/L mEq/L (8-16) BUN 14 mg/dL mg/dL (7-23) Creatinine 0.8 mg/dL mg/dL (0.7-1.3) Estimated GFR > 60 Glucose 89 mg/dL mg/dL (70-100) Calcium 9.8 mg/dL mg/dL (8.5-10.4) Salicylates < 1.0 mg/dL L mg/dL (2.0-20.0) Urine Opiates Screen NEGATIVE ng/mL ng/mL (NEGATIVE) Acetaminophen < 10 mcg/mL L mcg/mL (10-30) Urine Barbiturates NEGATIVE ng/mL ng/mL (NEGATIVE) Ur Phencyclidine Scrn NEGATIVE ng/mL ng/mL (NEGATIVE) Ur Amphetamine Screen Ur Amphetamines Screen NEGATIVE ng/mL ng/mL (NEGATIVE) U Benzodiazepines Scrn NEGATIVE ng/mL ng/mL (NEGATIVE) [place] Urine Cocaine Screen NEGATIVE ng/mL ng/mL (NEGATIVE) U Marijuana (THC) Screen NEGATIVE ng/mL ng/mL (NEGATIVE) Ethyl Alcohol < 10 mg/dL mg/dL (0-10) 05/23/18 05/23/18 11:10 11:00 WBC RBC Hgb Hct MCV MCH MCHC RDW Plt Count MPV Neut % (Auto) Lymph % (Auto) Wallace % (Auto) Eos % (Auto) Baso % (Auto) Nucleat RBC Rel Count Absolute Neuts (auto) Absolute Lymphs (auto) Absolute Monos (auto) Absolute Eos (auto) Absolute Basos (auto) Absolute Nucleated RBC Immature Gran % Seg Neutrophils % Band Neutrophils % Lymphocytes % Monocytes % Eosinophils % Basophils % Metamyelocytes % Myelocytes % Promyelocytes % Blast Cells % Immature Gran # Absolute Seg Neuts Absolute Band Neuts Absolute Lymphocytes Absolute Monocytes Absolute Eosinophils Absolute Basophils Absolute Metamyelocyte Absolute Myelocytes Absolute Promyelocytes Absolute Plasma Cells Nucleated RBCs Atypical Lymphocytes Absolute Blast Cells Plasma Cells % Platelet Estimate Sodium Potassium Chloride Carbon Dioxide Anion Gap BUN Creatinine Estimated GFR Glucose Calcium Salicylates Urine Opiates Screen Cancelled Acetaminophen Urine Barbiturates Cancelled Ur Phencyclidine Scrn Cancelled Ur Amphetamine Screen Cancelled Ur Amphetamines Screen U Benzodiazepines Scrn Cancelled [place] 0.4 mEq/L L mEq/L (0.6-1.2) Urine Cocaine Screen Cancelled U Marijuana (THC) Screen Cancelled Ethyl Alcohol Medications Given: Discontinued Medications Lorazepam (Ativan) 1 mg PO EDNOW ONE Stop: 05/23/18 16:44 Last Admin: 05/23/18 17:06 Dose: 1 mg Departure - Departure Disposition: [facility] IP Clinical Impression: Gravely disabled Schizoaffective disorder Qualifiers: Schizoaffective disorder type: bipolar Qualified Code(s): F25.0 - Schizoaffective disorder, bipolar type Condition: Fair Referrals: Patient,NotPresent [Unknown] - As per Instructions
[2018-05-23 11:59] LABS: PLATELET COUNT 458 10^3/uL (150-400)
[2018-05-23] MEDS ORDERED: LORazepam 1 MG TAB PO ONE ×2 (16:43→20:43)
--- NOTE | 2018-05-23 18:37 | ASMTTLCEVL ---
TLC Evaluation - Basic Information Evaluation Start Date and 05/23/2018 04:30 PM Time Hospital Status Answers: M1 Hold 72-hr M1 Hold Start Date 05/23/2018 10:35 AM and Time Patient statement Notes: I keep trying. Its hard to understand. Per fathers report pt has been decompensating starting 1 week ago with auditory hallucinations, inability to follow directions and care for himself. Narrative Notes: Pt is a 37 year old, single, male with a known history of schizoaffective disorder, bipolar type and cannabis use disorder moderate. Pt was sent to the [facility] ED on a M1 hold initiated by [facility] Psychiatrist, Barbara Xie. Per M1 hold he has been decompensating in functioning due to worsening illness. He is disorientated to time, concern for delirium. He is unsafe in the current unrestricted environment lighting cigarettes in his bedroom, leaving the treatment facility, wandering in a confused state, drinking cups of water with cigarettes in them. Pt is too disorganized to be safely maintained at current level of care and with concern for delirium. Diagnosis History Notes: When pt was discharged from [facility] on08/09/17 he was given a dx of Schizoaffective Disorder, bipolar type, and Cannabis use disorder, severe. Pt has a hx of increased agitation and violent urges. Per previous reports pt was initially diagnosed with psychotic disorder at age 20 in 1999. At that time he was hospitalized in a facility in [place]. Pt began involvement with [facility] where he saw Dr Paul in 2010. Prior suicide attempts Notes: Father reported pt has no hx of prior suicide attempts however he has a hx of experiencing SI. Pt was unable to answer whether he is experiencing SI at this time. Prior hospitalizations Notes: Pts most recent treatment episode as an inpt at [facility] from 07/29/17-08/09/17. Also on [facility] unit 06/26/17-07/11/17 and 06/08/17-06/14/17 along with an admission on [facility] in July of 2016. Pts 1st hospitalization was at a facility in [place] at age 20. Pt also had a hospital admission at [facility]. Treatment Responses Notes: Pt has periods of improved functioning but he has been unable to work and requires a great deal of support from his family and mental health providers at his baseline. History of violence Notes: Pt per previous reports has a hx of agitation and aggressiveness during past psychotic episodes. Psychiatrist: Dr Larissa Gutierrez at [facility] Medications (name, dosage, route, freq uency) Notes: Lamictol, Labetalol, Effexor, Lithuim and Broylor. Father also reported pt was given Haldol starting 2 days ago. He has been treated in the past with Geodon and Risperdone. Allergies/Reaction Notes: No known allergies were reported. Sleep Notes: Pt was only able to state he hardly sleeps. Appetite Notes: When asked about his appetite or eating behavior pt only stated, I spend way too much time thinking about that. Medical/Surgical history Notes: Pt had parathyroid surgery in Jul. Per hx pt also had tachycardia in the past. Substance use history (frequency, intensity, his tory, duration) Notes: Pt has a hx of alcohol and cannabis abuse. Father stated pt has not used marijuana for about the past year and parents require periodic drug tests. Pts utox was negative for all substances. Family composition Notes: Pt has a younger brother who lives out of state. His parents marriage is intact. Need for family Answers: Yes participation in patient's care Family psychiatric/substance abuse history Notes: Pts father has been diagnosed with depression along with a paternal uncle who has bipolar disorder. Mother had also reported previously a hx of depression, bipolar disorder and alcoholism on the maternal side of the family. Pts brother has hx of depression, anxiety and seizure disorder which can cause psychosis. Developmental history Notes: Per previous reports parents had indicated pt had experienced anxiety and fearfulness as a child. He also was bullied by his peers. Also reported per hx is pt would give up easily when his 1st attempt at something was not successful. Abuse concerns Answers: None Marital status/children Notes: Pt is single, never with no children. Living situation Notes: Pt moved into the [facility] a few days ago due to his decompensation in mental health. Otherwise pt lives alone in an apt with a great deal of support from his parents and mental health providers. Sexual history/orientation Notes: Pt is not in a relationship. Peer support/family strengths Notes: Pt apparently has a few friends at the [facility]. Pt's parents appear to be very supportive. Education level/history Notes: Pt graduated from high school and attended some college where he studied psychology. Work history Notes: Pt is on disability. 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 Notes: No hx. Legal Notes: Pt has no current legal problems or hx of any convictions per father. Advent/Spiritual Notes: There was no report of any nondenominational or spiritual beliefs that would impact his treatment per previous reports. Leisure Notes: Pt enjoys watching television and playing video games. Collateral Notes: Collateral inform was obtained from pt's father and from previous [facility] records. Patient's strengths Answers: Intelligent (Please select at least TWO strengths): Supportive Family TLC Evaluation - Mental Status Exam Appearance: Answers: Appropriate Eye Contact: Answers: Avoiding Mood: Answers: Euthymic Sad Affect: Answers: Anxious Apprehensive Congruent w/ Mood Constricted Distracted Fearful Guarded Indifferent Irritable Nervous Suspicious Behavior: Answers: Cooperative Fearful Guarded Impulsive Restless Withdrawn Speech: Answers: Irrelevant Unclear Delayed Thought Process: Answers: Disorganized Confused Distracted Insight: Answers: Poor Judgement: Answers: Poor Manic Signs/Symptoms Answers: Distractibility Impulsivity Irritability Mood Swings Depression Answers: Difficulty Concentrating Signs/Symptoms: Diminished Interest Diminished Pleasure Flat Affect Sad Mood Withdrawn Anxiety Signs/Symptoms Answers: Generalized Anxiety Hallucinations: Answers: Auditory Delusions: Answers: Mood-Congruent Current Stage of Change Answers: Precontemplation Pt reported to have Answers: No suicidal/self-injuring ideation/behavior? Pt reported to be making Answers: No suicidal/self-injuring threats? Pt reported to have Answers: No aggression/assault ideation/behavior? Pt reported to be making Answers: No aggression/assault threats? Pt exhibits inability to Answers: Yes care for self/grave disability? History of Answers: Yes aggressive/assaultive ideation, behavior, or threats? [facility] Evaluation - Suicide/Homicide Risk Suicide Risk Factors: Answers: Agitation Bipolar Disorder Global Insomnia Impulsivity Psychotic Disorder Schizoaffective Disorder Homicide/violence risk Answers: Paranoid Ideation factors: Current Suicidal Answers: No Ideation? Current Suicidal Ideation Answers: No in the Past 48 Hours? Current Suicidal Ideation Answers: No in the Past Month? Suicide Internal Answers: Other Notes: Pt denies SI Protective Factors: Suicide External Answers: Positive Therapeutic Protective Factors: Relationships Ranking of patient's Answers: Low suicidal risk: Ranking of patient's Answers: Low homicidal risk: TLC Evaluation - Wrap-up AXIS I Diagnosis (include DSM-V and ICD-10 codes), must also be entered in [employer], which is the source of truth. Notes: Schizoaffective Disorder, Bipolar Type 295.70 (F25.0) Cannabis Use Disorder, severe 304.30 (F12.20) in remission per father Evaluation End Date and 05/23/2018 06:35 PM Time (HH:MM): Date Signed: 05/23/2018 06:36 PM Electronically Signed By:Savanna Lagos
--- NOTE | 2018-05-23 18:39 | ASMTTCLDSP ---
TLC Discharge Disposition Disposition: Answers: Admit Disposition Notes: Notes: In consultation with [facility] ED PA, Alexandre Morris and on-call psychiatrist, Omid Dimas MD, both concurred that pt appears to meet 27-65 criteria requiring psychiatric hospitalization as pt appears to be at risk of harm to self/others/gravely disabled due to a mental illness condition. Pt was given the [facility] prohibited belongings list while in the ED. Was patient given the Answers: Yes Inpatient Behavioral Health Prohibited Belongings List while in the ED? For inpatient Dr. Omid Dimas admission, the following psychiatrist agreed to accept patient for admission to Behavioral Health ([facility]): Type of Hold: Answers: M1/72-hour Hold Hold initiated by: Answers: Psychiatrist Date Signed: 05/23/2018 06:38 PM Electronically Signed By:Savanna Lagos
[2018-05-23] MEDS ORDERED: LITHIUM CARBONATE 600 MG CAP PO ONE (20:02)
[2018-05-23] MEDS ORDERED: LITHIUM CARBONATE 300 MG TAB ONE (20:15)
[2018-05-23] MEDS ORDERED: LITHIUM CARBONATE ER 450 MG TAB PO ONE (20:15)
[2018-05-23] MEDS ORDERED: LITHIUM CARBONATE 300 MG TAB PO ONE (20:16)
[2018-05-23] MEDS ORDERED: OLANZapine DISINTEGR 5 MG TAB PO PRN (22:27)
[2018-05-23] MEDS ORDERED: ACETAMINOPHEN 325 MG TAB PO PRN (22:27)
[2018-05-23] MEDS ORDERED: MAGNESIUM HYDROXIDE 30 ML UDCUP PO PRN (22:27)
[2018-05-23] MEDS ORDERED: MAG HYDROX/AL HYDROX/SIMETH 30 ML UDCUP PO PRN (22:27)
[2018-05-23] MEDS ORDERED: lamoTRIgine 100 MG TAB PO SCH (22:45)
--- NOTE | 2018-05-23 22:56 | PDCONSULT ---
[employer] Note: salesperson books MD did not see patient in person, but was asked to order admission meds. MD reviewed [facility] evaluation on patient and ED reports, including labs. Per [facility] evaluation, patient was transferred to ED from [facility] d/t confusion, lack of compliance with treatment, not following rules. Dr. Xie told [facility] staff that patient might have "delirium" d/t his odd behavior, disorganized thought process and lack of participation in treatment. He has been leaving [facility] without permission and doing off things, like drinking water from cup with cigarette butts in it. Patient was agitated, but not aggressive or violent in ED. His lithium level was 0.4, which indicates he has not been taken the medication as prescribed. It's likely, given his decompensated status, that he was not med compliant while living independently. [facility] reports that patient was moved into [facility] during the "past couple of days." It's unclear from TLC report whether patient has taken meds reliably during that time. Even if [facility] staff are administering meds, there is no guarantee that patient has been cooperative with taking them. Given that he is violating other [facility] rules and leaving the facility without permission, chances are good that he is also not cooperative with meds, even if he leads [facility] staff to believe he is taking them. Therefore, MD has reservations about prescribing his regular doses of medications d/t concerns for risks and potential adverse effects, especially since some of his meds are prescribed at high levels, i.e. his Lamotrigine is at supratherapeutic dose (450mg QHS), his lithium is at high end of therapeutic range (900mg BID). When he was d/c'd from [facility] in 07/2017, he was prescribed Geodon and Risperdal. Supposedly he has been taken of these meds (unknown when) and started on Vraylar as his primary antipsychotic. [facility] report indicates patient was started on Haldol within the past couple of days at [facility]. salesperson books MD feels the best course of action is for patient to be evaluated by inpatient staff to r/o delirium (as suggested by Dr. Xie), possibly d/t meds or potential drug interactions (patient has long h/o severe THC dependence, even though his UDS was neg in ED, this may be false negative). Once patient has been evaluated by [facility] providers, they can re-start additional medications and/or adjust current meds as appropriate.
[2018-05-23] MEDS: LABETALOL HCL 200 MG TAB PO SCH (23:25)
[2018-05-23] MEDS: LORazepam 1 MG TAB PO SCH (23:25)
[2018-05-24] MEDS: LORazepam 0.5 MG TAB PO PRN (02:28)
[2018-05-24] MEDS ORDERED: HALOPERIDOL 5 MG TAB PO ONE (08:09)
[2018-05-24] MEDS: LITHIUM CARBONATE ER 300 MG TAB PO SCH ×2 (08:27→20:25)
[2018-05-24] MEDS: LABETALOL HCL 200 MG TAB PO SCH ×2 (08:27→20:26)
[2018-05-24] MEDS: HALOPERIDOL 5 MG TAB PO SCH ×2 (08:27→20:25)
[2018-05-24] MEDS: VENLAFAXINE XR 75 MG CAP PO SCH (08:27)
[2018-05-24] MEDS: CHOLECALCIFEROL VIT D3 1,000 UNITS TAB PO SCH (08:27)
[2018-05-24] MEDS: METHYLFOLATE 15 MG PO SCH (08:40)
[2018-05-24] MEDS ORDERED: Cariprazine Hcl [Vraylar] 1.5 MG PO SCH (09:00)
[2018-05-24] MEDS ORDERED: VENLAFAXINE XR 75 MG CAP PO SCH (09:00)
[2018-05-24] MEDS ORDERED: LITHIUM CARBONATE ER 450 MG TAB PO SCH (09:00)
[2018-05-24] MEDS ORDERED: FENOFIBRATE 145 MG TAB PO SCH (09:00)
[2018-05-24] MEDS ORDERED: Cariprazine Hcl [Vraylar] 3 MG PO SCH (09:00)
--- NOTE | 2018-05-24 09:07 | ASMTBHMTP ---
Master Treatment Plan Master Treatment Plan Answers: Impaired Reality for: Date: 05/24/2018 Diagnosis on Admission: Schizoaffective Disorder, Bipolar Type 295.70 (F25.0) Expected length of stay: 3-7 Reason for admission: Notes: Per TLC evaluation: "Pt is a 37 year old, single, male with a known history of schizoaffective disorder, bipolar type and cannabis use disorder moderate. Pt was sent to the [facility] ED on a M1 hold initiated by [facility] Psychiatrist, Barbara Xie. Per M1 hold he has been decompensating in functioning due to worsening illness. He is disorientated to time, concern for delirium. He is unsafe in the current unrestricted environment lighting cigarettes in his bedroom, leaving the treatment facility, wandering in a confused state, drinking cups of water with cigarettes in them. Pt is too disorganized to be safely maintained at current level of care and with concern for delirium". Patient's stated presenting problems: Notes: "Because staff happened at [facility] and I wasn't able to keep it together". Patient's goals for treatment: Notes: "More sleep". Patient's strengths: Notes: "I'm good at thinking". Identify supports outside of hospital: Notes: "my parents". Discharge criteria: Notes: Psychotic symptoms will be reducedor eliminated with return to baseline functioning in affect, thinking and behavior prior to discharge. Initial disposition plan/considerations: Notes: Stabilize on meds. Return to [facility]. Master Treatment Plan Required Signatures Psychiatrist signature: Answers: BAKARI Quan: RN on-shift signature: Answers: RN: Patient signature: Answers: Patient: Date Signed: 05/24/2018 09:06 AM Electronically Signed By:Irene Campos
[2018-05-24] MEDS: LEVOTHYROXINE 50 MCG TAB PO SCH (11:14)
--- NOTE | 2018-05-24 11:48 | BAPA ---
DATE OF SERVICE: 05/24/2018 CHIEF COMPLAINT: "Really, really forgetful, I usually remember things well." HISTORY OF PRESENT ILLNESS: From the ED note dated 05/23/2018, the patient with history of schizoaffective disorder arrived to the ED on an M1 hold after being placed on hold from [facility] over concerns about his ability to care for himself and being gravely disabled. The patient has been wandering, leaving [facility], has been observed smoking in his room, has been observed drinking water with old cigarettes in it. The patient denied suicide and homicidal ideation. From the [facility] evaluation dated 05/23/2018, patient was placed on an M1 hold with M1 hold start date of 05/23/2018, at 10:35 a.m. The patient reported to the [facility] private household worker "I keep trying, its hard to understand." The patient's father reported the patient has been decompensating for about 1 week with auditory hallucinations and inability to follow directions and care for himself. Patient has decompensating function due to worsening illness. The patient is unsafe in the current unrestricted environment, lighting cigarettes in his bedroom, leaving the treatment facility, wandering in a confused state, drinking cups of water with cigarettes in them. The patient was disorganized and unable to remain safe in current environment at [facility]. The patient was admitted involuntarily due to being gravely disabled due to a mental illness. The patient is hospitalized for safety, crisis stabilization, and medication evaluation. The patient describes to this PSYCHOLOGY INTERN circumstances that led to current hospitalization as his deterioration started just before going back to [facility] and it has been getting worse and worse. The patient reports he has been trying to take his medications and reports "I' ve been taking them late and stuff. Lately have not been taking them every day. Forget to take them some days." The patient was admitted for concern of delirium and being disoriented. The patient is asked to complete a cognitive test which he agrees to. Patient is able to recall back series of 5 numbers and a series of 7 numbers without difficulty. The patient answers abstract questions without difficulty. The patient's memory is intact. Patient is able to recall back 3 items after 5 minutes. The patient's judgment is good and is able to ask questions regarding use of judgment without difficulty. The patient is oriented to person, place, time, and situation. The patient is able to describe to this PSYCHOLOGY INTERN where he currently is, the day of the week, the time, the month, and the year, and why he is at the hospital. Calculations: The patient is able to count backwards by 3 and 7, starting from 100 without difficulty. The patient's current fund of knowledge is adequate for level of education. At the end of the cognitive function test, the patient stands up and tells this PSYCHOLOGY INTERN that he is tired of answering questions and walks out of this PSYCHOLOGY INTERN's office and states he no longer wants to answer interview questions. The patient has a history of schizoaffective disorder, bipolar type, as reported by his outpatient psychiatrist, Dr. Xie. NURSING REPORT: Patient slept 2.5 hours last night, and spends the majority of his time pacing the groves; is withdrawn, paranoid. FAMILY MEETING: Patient's father met with his PSYCHOLOGY INTERN and patient at patient's request to review patient's current medications. Father and patient agree to current medications. PAST PSYCHIATRIC HISTORY: From the [facility] evaluation, patient was discharged from [facility] on 08/09/2017 with a diagnosis of schizoaffective disorder, bipolar type, and cannabis use disorder, severe. The patient has a history of increased agitation and violent urges. The patient was diagnosed with a psychotic disorder at age 20. At that time, he was hospitalized in a facility in [place]. The patient began involvement with [facility] where he saw Dr. Paul in 2010. From the father's report, the patient has no history of prior suicide attempts. However, he has history of experiencing suicidal ideation. In the [facility] evaluation, patient was unable to answer whether he was experiencing suicidal ideation at the time of the TLC evaluation in the ER. The patient has several prior hospitalizations for inpatient psychiatric treatment. The patient's most recent treatment episode was an inpatient at [address] from 07/29/2017 to 08/09/2017, also on [address] [place] [address] Unit from 06/26/2017 to 07/11/2017 and 06/08/2017 to 06/14/2017, along with an admission on [address] [place] [address] in July of 2016. The patient's 1st hospitalization was at a facility in [place] at age 20. The patient has also been hospitalized at [facility]. The patient has improved in the past with treatment. He does have periods of functioning, but has been unable to work and requires a great deal of support from his family and mental health providers at his baseline. The patient does have a history of agitation and aggressiveness during past psychotic episodes. ALLERGIES: No known allergies. CURRENT MEDICATIONS: This PSYCHOLOGY INTERN phoned and spoke with Dr. Xie from [facility] this a.m. to review patient's outpatient medications. Dr. Xie reports that the following are the patient's outpatient medications and recommends these medications to be continued during hospitalization to stabilize patient. The medications are as follows: 1. Effexor XR 150 mg p.o. daily. 2. Ativan 2 mg p.o. at bedtime. 3. [place] ER 900 mg p.o. twice daily. 4. Synthroid 50 mcg p.o. daily at 1000. 5. Lamictal [address] at bedtime. Dr. Xie reports patient has been taking Lamictal 450 mg po QHS regularly. 6. Labetalol 200 mg p.o. twice daily. 7. L-methyl folate 15 mg p.o. daily. 8. Haldol 5 mg p.o. twice daily. 9. Fenofibrate 45 mg p.o. daily. 10. Vitamin D3 1000 units p.o. daily. 11. Cariprazine. The patient's outpatient dose is 1.[address] Xie also reports that the patient was recently started on Haldol 5 mg p.o. daily and 10 mg p.o. at bedtime, however, reports that patient may not need this high of a dose and recommends the current dose of 5 mg p.o. twice daily. These medications are reviewed with the patient. The patient states these are his outpatient medications and doses and patient agrees to continue these medications during hospitalization. Patient's father visited unit and brought a list of current medications and patient's prescriptions for Vraylar 1.5 mg po QD and L-methyl folate 15 mg p.o. daily. List is reviewed with father and reconciled with current medication list. Father agrees with current medications. PAST MEDICAL HISTORY: From the [facility] evaluation, the patient had parathyroid surgery in July of 2016. The patient has a history of tachycardia. SOCIAL HISTORY: From the [facility] evaluation, the patient has a younger brother who lives out of state. His parent's marriage is intact. The patient is single, never with no children. The patient moved into the [facility] a few days ago due to his decompensation and mental health. Otherwise, patient lives alone in an apartment with a great deal of support from his parents and mental health providers. The patient is currently not in a relationship. The patient apparently has a few friends at [facility]. The patient's parents appear to be very supportive. The patient graduated high school and attended some college where he studied psychology. The patient is on disability. 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 The patient has no history. The patient has no current legal problems or history of any convictions from his father's report. There is no report of any hindu or spiritual beliefs that would impact his treatment from previous reports. The patient enjoys watching television and playing video games. SUBSTANCE USE HISTORY: Patient has a history of using alcohol and cannabis. The patient's father reported the patient has not used marijuana for about the past year and parents do require patient to get periodic drug tests. Patient's U tox upon admission was negative for all substances. FAMILY PSYCHIATRIC HISTORY: The patient's father has been diagnosed with depression along with a parental uncle who has bipolar disorder. Mother had also reported previously a history of depression, bipolar disorder and alcoholism on the maternal side of the family. The patient's brother has a history of depression, anxiety, and seizure disorder, which can cause psychosis. This information is taken from the [facility] evaluation dated 05/23/2018. ADMISSION LABS AND STUDIES: CBC from 05/23/2018, was within normal limits except white blood cells were elevated at 12.74, red blood cells were low at 4.27, hemoglobin was low at 12.4, hematocrit was low at 37.7, platelet count was elevated at 458. Absolute seg neutrophils were elevated at 8.54, absolute lymphocytes were elevated at 3.44, absolute eosinophils were low at 0.00, absolute basophils were elevated at 0.25, atypical lymphocytes were elevated at 1+. Platelet estimate was increased. Chemistry from 05/23/2018, within normal limits. Hemoglobin A1c and estimated average glucose is currently pending. Liver function tests from 05/23/2018, within normal limits. TSH from 05/23/2018 , was 1.390. Toxicology screen from 05/23/2018, was negative for substances of abuse and negative for ethyl alcohol. [place] level from 05/23/2018, was 0.4 and was not in a therapeutic range. MENTAL STATUS EXAM: The patient is a well-nourished male looking older than chronological age. Attire is appropriate. Dress is casual, neat and clean. Grooming status is inappropriate and disheveled, unshaven. Ambulation is independent. Gait is normal and coordinated. Posture is normal and relaxed. Eye contact is appropriate and adequate. Motor activity is appropriate with purposeful, organized, coordinated movements with no involuntary movements noted. Attitude is uncooperative, defensive and guarded. Patient appears disinterested and does not relate well to this interviewer as evidence by patient only sitting for about the 1st 5 minutes of the evaluation and then stood up, reported he no longer wanted to answer questions during the interview and walked out of this PSYCHOLOGY INTERN's office. Language production is spontaneous. Rate is somewhat hesitant. Latency of response is prolonged with irritable tone and normal volume. Articulation is clear. Patient reports mood as okay with constricted, flat and inappropriate affect. The patient's thought process is linear and logical with no loose associations noted. No tangential thought, concrete thinking, or any other signs of formal thought disorder. The patient does not report suicidal, homicidal thoughts, ideas, or plans. The patient denies auditory or visual hallucinations. Patient denies delusions. The patient does not appear to be attending to internal stimuli. The patient does appear to be paranoid. The patient is oriented to person, place, time, and situation. The patient's attention and concentration are poor. The patient's insight and judgment are poor. There is no evidence of gross cognitive dysfunction at any point during the interview and no evidence of apparent dysfunction in recent or remote memory noted. The patient does not report undesirable side effects from the current medications listed above. The patient agrees to continue these medications. DIAGNOSIS: Based on the patient's history and current presentation, his diagnosis is schizoaffective disorder, bipolar type. FORMULATION: The patient is a 37-year-old male, single, unemployed, currently living at [facility] prior to his admission, who presents to the hospital involuntarily on an M1 hold due to being unable to care for himself and being gravely disabled. The patient requires continued inpatient care because of current psychosis. Patient presents with problems of decompensation of his mental illness that have been steadily increasing over the past several weeks. Patient's life has been affected by these problems including the inability to properly care for himself. The exacerbation of symptoms was likely due to the patient's nonadherence to medications. The patient has a past psychiatric history of schizoaffective disorder, bipolar type that is currently treated with the medications listed under current medications above. The patient is at a high safety risk due to current psychosis. Protective factors while hospitalized include ongoing safety checks, active involvement in treatment, and support from our treatment team. The patient could benefit from inpatient hospitalization for safety, crisis stabilization, and medication evaluation. PLAN: (1) Psychotropic medications: After reviewing options, risks, and benefits, the patient agrees to continue current medications listed above under current medications. No other medication changes at this time as more time is needed to determine ongoing tolerability and efficacy. Plan is to continue to observe patient for response and side effects from medications, and ongoing monitoring and evaluation. (2) Review with patient informed consent and recommendations for psychotropic medication treatment listed below (3) Labs: A1c, fasting lipid panel, liver function test (4) Therapy: continue milieu and group therapy (5) Further investigation including gathering information from patients relatives and review of past case records to inform treatment plan. (6) Safety/Wellness plan and follow-up outpatient appointments to be established prior to discharge. Next steps are for patient to meet with caretaker to plan a safe discharge plan and establish outpatient services for ongoing treatment. (7) Confer with inpatient treatment team regarding treatment plan. (8) Legal status: M1 hold (9) Consider discharge on Monday if patient is in stable condition, safe, and has a safe discharge plan. (10) Substance abuse interventions: ESTIMATED LENGTH OF STAY: 3-5 days PSYCHOTROPIC MEDICATION TREATMENT INFORMED CONSENT and RECOMMENDATIONS: Review nature of condition, diagnosis, and prognosis. Review nature and purpose of psychotropic medication treatment. Review type of psychotropic medications being ordered. Review risk and benefits of psychotropic medication treatment. Review probable length of time will need to take medications. Review risk and benefits of not undergoing psychotropic medication treatment. Review alternative treatments to psychotropic medications. Review psychotropic medications contraindications, drug-drug interactions, side effects, and importance of reporting any side effects to a psychiatric provider or nurse during inpatient hospitalization, and upon discharge to patients psychiatric outpatient provider, primary care provider, or other health resident care coordinator. Review importance of asking a nurse, psychiatric provider, or primary care provider any questions or problems concerning the psychotropic medications. Verifty patient understands the information that has been provided, and understands, accepts, and agrees to psychotropic medications. Review patients safety plan and importance of patient to communicate to staff while hospitalized if patient is ever a danger to self/others, or unable to care for self, and upon discharge, the importance for patient to contact [facility] or [facility], or go to the nearest emergency room, if patient is ever a danger to self/others, or unable to care for self. Recommend that upon discharge patient establish medication management treatment with a psychiatric provider, establishes routine therapy appointments, and follow-up with primary care provider. Verify patient understands and agrees to these recommendations. /[id number]/MODL MTDD
[2018-05-24] MEDS: Cariprazine Hcl [Vraylar] 1.5 MG PO SCH (12:44)
--- NOTE | 2018-05-24 14:31 | PDMN ---
Medical Necessity Medical necessity: Pt meets IP criteria per & SONIA B-014-IP; est los >2 mn for eval/tx of schizoaffective disorder, bipolar type; pt on M1 hold due to being gravely disabled & unable to care for himself; admit for further monitoring, safety, med management & crisis stabilization; per order & H&P
--- NOTE | 2018-05-24 14:33 | BCON ---
INTERNAL MEDICINE CONSULTATION DATE OF CONSULTATION: 05/24/2018 REFERRING PHYSICIAN: DR. JULIO REASON FOR REFERRAL: Medical clearance for inpatient behavioral health stay. HISTORY: This patient presented to the [facility] Emergency Department yesterday from [facility]. He had been placed on an M1 hold from [facility] because he had been wandering, leaving the premises, smoking in his room, and drinking water with old cigarettes in it. He was judged to be gravely disabled and was admitted for further psychiatric care. He currently is without any acute complaints. PAST MEDICAL HISTORY: 1. Schizoaffective disorder, bipolar type. 2. Hypothyroidism. 3. Hyperparathyroidism. 4. Hypertension. 5. Hypertriglyceridemia. PAST SURGICAL HISTORY: He has had a parathyroidectomy. MEDICATIONS: Prior to admission: 1. Lorazepam 1 mg p.o. t.i.d. p.r.n. and 2 mg p.o. q.h.s. p.r.n. 2. L-methyl folate 15 mg p.o. q. day. 3. Lamotrigine 450 mg p.o. q.h.s. 4. Haloperidol 5 mg p.o. q. day and 10 mg p.o. q.h.s. 5. Venlafaxine 150 mg p.o. q. day. 6. Labetalol 200 mg p.o. b.i.d. 7. Fenofibrate 160 mg p.o. q. day. 8. Cholecalciferol 1000 units p.o. q. day. 9. Levothyroxine 50 mcg p.o. q. day. 10. Cariprazine 1.5 mg p.o. q. day. 11. [place] 900 mg p.o. b.i.d. ALLERGIES: There are no known drug allergies. SOCIAL HISTORY: He has not worked in a long time. He is a heavy smoker, but he reports that he quit 2 days ago. He lives at [facility]. He denies any recent use of alcohol. FAMILY HISTORY: Noncontributory. REVIEW OF SYSTEMS: He is not in pain. He reports a normal appetite. He has no constipation, diarrhea, nausea, or vomiting. He has had weight gain. He denies fevers or chills, cough or dyspnea. Otherwise, a 10-point review of systems is negative. PHYSICAL EXAM: VITAL SIGNS: Blood pressure is 141/90, heart rate is 103, respiratory rate is 16, oxygen saturation is 97% on room air, temperature is 36.9 degrees centigrade. GENERAL: This is an overweight man with longish hair and peter, cooperative and in no acute distress. HEENT: Extraocular movements are intact. Pupils are equal, round, reactive to light. Mucous membranes are moist. Dentition is in good condition. He has a mildly crowded airway column, Mallampati class 2. NECK: Supple. HEART: There is a regular rate and rhythm with no murmurs, rubs, or gallops. LUNGS: Clear to auscultation bilaterally. ABDOMEN: Benign. EXTREMITIES: There is no cyanosis, clubbing, or edema. NEUROLOGIC: He is alert and oriented to his location, the month and the year, but he is off by 1 on the date of the month, thinking that today is May 25 rather than May 24. Cranial nerves 2-12 are grossly intact. There is no focal weakness. Sensation is intact to light touch, and gait is within normal limits. LABORATORY STUDIES: From the emergency department, CBC showed an elevated white blood cell count at 12.74 and an elevated platelet count at 458. He had anemia with a hemoglobin of 12.4 and hematocrit of 37.7. There was elevation of absolute neutrophils and absolute lymphocytes, as well as absolute basophils. Serum chemistry showed normal renal function and electrolytes. Hemoglobin A1c was normal at 5.4. Liver function tests were normal. TSH was normal at 1.39. Toxicology screen in the serum showed a subtherapeutic lithium level of 0.4. It was negative for salicylates, acetaminophen, or ethyl alcohol. Toxicology screen in the urine was negative for any substances of abuse. ASSESSMENT AND RECOMMENDATIONS: 1. Mental health issues pending further evaluation and management per Psychiatry and mental health team. 2. Tobacco dependence syndrome. He reports he quit smoking 2 days ago, and he should be encouraged to not resume smoking. 3. Anemia of unclear etiology, a new finding on review of recent labs. He has had very frequent laboratory testing, and I wonder if he has had Clozaril in the past, though he is not currently on Clozaril. I have ordered an iron panel and a reticulocyte count to evaluate his anemia further. 4. Weight gain, and he is overweight but not yet obese. He has had approximately a 10 kg weight gain over the past year. Advise some caution regarding psychiatric medications, which could cause weight gain. However psychosocial stabilization is first priority. Encouraged exercise. 5. Tachycardia of unclear etiology. He is receiving labetalol, which should control heart rate. His labs were not consistent with dehydration. I would advise continue to observe. It is regular. I am not suspicious of atrial fibrillation. 6. Hypertension. Continue labetalol and observe his blood pressure. If it continues to be elevated, then he should have either an increase in labetalol or a 2nd antihypertensive medication added. Given that he is on lithium, choices are somewhat limited. Calcium channel larissa such as amlodipine would be a reasonable choice. 7. Hypertriglyceridemia. Continue fenofibrate. I see no medical contraindications to this patient's continued stay on the inpatient behavioral health unit or to any psychiatric medications or procedures. Thank you very much for including me in the care of this patient, and please do not hesitate to contact me or the hospitalist service should there be need for further medical evaluation. /[id number]/MODL MTDD
[2018-05-24] MEDS: lamoTRIgine 100 MG TAB PO SCH (20:23)
[2018-05-24] MEDS: LORazepam 1 MG TAB PO SCH (20:26)
--- NOTE | 2018-05-25 07:14 | SOAPPROG ---
SOAP Progress Note Assessment/Plan: Assessment: Schizoaffective disorder, bipolar type, current abigail. No improvement noted, current acute abigail (see subjective/objective note). Patient is not safe to discharge at this time as patient continues to exhibit signs of abigail, and express abigail symptoms. Patient requires continued inpatient care because of current abigail, and requires inpatient level of care to stabilize in order to no longer be gravely disabled due to mental illness. Patient could benefit from continued inpatient hospitalization for crisis stabilization, safety, and medication evaluation. Plan: (1) Psychotropic medications: After reviewing options, risks, and benefits patient agrees to continue current medications. No medication changes at this time as more time is needed to determine ongoing tolerability and efficacy. Plan is to continue to observe patient for response and side effects from medications, and ongoing monitoring and evaluation. (2) Review with patient informed consent and recommendations for psychotropic medication treatment listed below (3) Labs: no additional labs at this time (4) Therapy: continue milieu and group therapy (5) Further investigation including gathering information from patients relatives and review of past case records to inform treatment plan. (6) Safety/Wellness plan and follow-up outpatient appointments to be established prior to discharge. Next steps are for patient to meet with medical care manager to plan a safe discharge plan and establish outpatient services for ongoing treatment. (7) Confer with inpatient treatment team regarding treatment plan. (8) Legal status: M1 agrees to voluntary when M1 expires (9) Consider discharge on Monday if patient is in stable condition, safe, and has a safe discharge plan. (10) Nursing care order to monitor fluid intake PSYCHOTROPIC MEDICATION TREATMENT INFORMED CONSENT and RECOMMENDATIONS: Review nature of condition, diagnosis, and prognosis. Review nature and purpose of psychotropic medication treatment. Review type of psychotropic medications being ordered. Review risk and benefits of psychotropic medication treatment. Review probable length of time patient will need to take medications. Review risk and benefits of not undergoing psychotropic medication treatment. Review alternative treatments to psychotropic medications. Review psychotropic medications contraindications, drug-drug interactions, side effects, and importance of reporting any side effects to a psychiatric provider or nurse during inpatient hospitalization, and upon discharge to patients psychiatric outpatient provider, primary care provider, or other health senior resident care director. Review importance of asking a nurse, psychiatric provider, or primary care provider any questions or problems concerning the psychotropic medications. Verify patient understands the information that has been provided, and understands, accepts, and agrees to psychotropic medications. Review patients safety plan and importance of patient to report to staff while hospitalized if patient is ever a danger to self/others, or unable to care for self, and upon discharge, the importance for patient to contact [facility] or [facility], or go to the nearest emergency room, if patient is ever a danger to self/others, or unable to care for self. Recommend that upon discharge patient establish medication management treatment with a psychiatric provider, establishes routine therapy appointments, and follow-up with primary care provider. Verify patient understands and agrees to these recommendations. 05/25/18 07:13 Subjective: Following up with patient for evaluation of abigail and safety. Patient reports, "I didn't sleep at all last night, its hard for me sometimes to sleep. Otherwise I am doing okay." Patient expresses the following psychiatric symptoms decreased need for sleep, severe anxiety. Patient reports taking medications as prescribed, and describes response to medications as fair. Patient does not report undesirable side effects from the medications, and agrees to continue current medications. Patient reports appetite as good, and reports eating all meals. Patient describes getting no sleep last night. Patient agrees to stay through weekend for continued stabilization and observation. Patient agrees to family meeting with his parents today by conference call with this HOME HEALTH CAREGIVER. Objective: Vital Signs Temp Pulse Resp BP Pulse Ox 36.7 C 97 20 140/90 H 96 05/25/18 06:00 05/25/18 06:00 05/25/18 06:00 05/25/18 06:00 05/25/18 06:00 NURSING REPORT: Consulted with nursing for update on patients progress in treatment. Nurses report patient is not engaged in treatment, is not attending groups, slept 0 hours, was up the entire night pacing from day room back to his room, and pacing halls; staff reports patient was observed filling up his water container numerous times and night staff reports they have passed this information along to day shift to monitor patients fluid intake; patient expresses the following psychiatric symptoms: irritability and decreased need for sleep; exhibits the following psychiatric symptoms: decreased need for sleep , hyperactivity, is eating all meals, is agreeable to medications and taking as prescribed with no report of side effects, with no s/s of EPS/akathisia, and denies SI/HI, denies A/V hallucinations, and denies delusions. 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 beginning of next week FAMILY MEETING: family meeting schedule with patient and patients parents per patients request today by phone as parents are in [place]. Patients father visited yesterday to deliver patients OP meds and OP medication list. MSE: The patient is a well-nourished male looking older than chronological age. Attire is appropriate and dress is casual. Grooming status is appropriate. Ambulation is independent. Gait is normal and coordinated. Posture is normal and relaxed. Eye contact is appropriate. Motor activity is overactive, patient pacing unit, unable to sit still for more than a few minutes; movements are purposeful, organized, coordinated; with no involuntary movements. Attitude is cooperative and friendly. Patient appears distractible and does not relate well to this interviewer. Language production is spontaneous. Rate is pressured. Latency of response is shortened, with irritable tone, and normal volume, and amount is hypertalkative. Articulation is clear. Patient reports mood as okay with expansive, incongruent and inappropriate affect. Patients thought process is non-linear and tangential. Associations are loose. Patient denies SI/HI. Patient denies auditory, visual hallucinations. Patient denies delusions. Patient does not appear to be attending to internal stimuli. Patients attention and concentration are poor, appears distractible. Patient is oriented to person, place, time. Patients insight is poor. Patients judgment is poor. No evidence of gross cognitive dysfunction at any point during the interview. No evidence of apparent dysfunction in recent or remote memory. - Time Spent With Patient Time Spent With Patient: 15 minutes, met with patient individually. - Pending Discharge Pending Discharge Within 24 Hours: No Pending Discharge Within 48 Hours: No ICD10 Worksheet Patient Problems: Problems Problem Status Onset Schizoaffective disorder Acute Acute psychosis Acute Agitation Acute Altered mental status Acute Bipolar 1 disorder Acute Cannabis use disorder, severe, dependence Acute Schizophrenia Acute
[2018-05-25] MEDS: HALOPERIDOL 5 MG TAB PO SCH ×2 (09:28→21:04)
[2018-05-25] MEDS: LABETALOL HCL 200 MG TAB PO SCH ×2 (09:29→21:04)
[2018-05-25] MEDS: LITHIUM CARBONATE ER 300 MG TAB PO SCH ×2 (09:29→21:06)
[2018-05-25] MEDS: LEVOTHYROXINE 50 MCG TAB PO SCH (09:29)
[2018-05-25] MEDS: CHOLECALCIFEROL VIT D3 1,000 UNITS TAB PO SCH (09:29)
[2018-05-25] MEDS: VENLAFAXINE XR 75 MG CAP PO SCH ×2 (09:29→12:51)
[2018-05-25] MEDS: FENOFIBRATE 145 MG TAB PO SCH (09:29)
--- NOTE | 2018-05-25 11:54 | ASMTCMCOM ---
CM Note CM Note Notes: CC checked in with ct. who reported that he is having long/short term memory issues. Ct. has been able to carry short conversations. Per staff he is drinking too much water. He says that he developed this habit and that he is bored he tends to drink more. He agreed to try and keep his water consumption to 4 large cups of water a day. Ct. signed a [facility] for [facility] and this worker spoke with his therapist Pop Bethea. She will visit him later today. Date Signed: 05/25/2018 11:37 AM Electronically Signed By:Irene Campos
[2018-05-25] MEDS: Cariprazine Hcl [Vraylar] 1.5 MG PO SCH (12:48)
[2018-05-25] MEDS: METHYLFOLATE 15 MG PO SCH (12:50)
--- NOTE | 2018-05-25 12:56 | SOAPPROG ---
SOAP Progress Note Assessment/Plan: Assessment: Anemia, unclear etiology, appropriate reticulocytosis and not iron deficient. Follow up with primary care as outpatient. Hypertension and tachycardia, both improved today. Continue to monitor. 05/25/18 12:55 Subjective: Labs reviewed. Objective: Vital Signs Temp Pulse Resp BP Pulse Ox 36.7 C 97 20 140/90 H 96 05/25/18 06:00 05/25/18 06:00 05/25/18 06:00 05/25/18 06:00 05/25/18 06:00 ICD10 Worksheet Patient Problems: Problems Problem Status Onset Agitation Acute Schizoaffective disorder Chronic
[2018-05-25] MEDS: lamoTRIgine 100 MG TAB PO SCH (21:05)
[2018-05-25] MEDS: LORazepam 1 MG TAB PO SCH (21:05)
--- NOTE | 2018-05-26 07:50 | SOAPPROG ---
SOAP Progress Note Assessment/Plan: Assessment: 37yo with hx of schizoaffective d/o, depr type. decompensated likely d/t nonadherence or possibly polydipsia. Li 0.4 on admit. Was reportedly taking meds under supervision at [facility]. 05/26/18 14:28 slept 7.5hr. signed in voluntarily. on interview, pt casually dressed, w/peter, good ec, nml speech rate/vol, articulate, bouncing legs while sitting throughout interview, reports mood is "fine", denied anxiety. affect constricted but appropriate to conversation, tp/ tc- reality based, linear responses to questions. denied AH, denied depr. denied SI or thoughts to harm others. i/j fair. cognition conversationally intact. denied med s/e altho feels he forgets names easily mentions "they (staff) are limiting my water" and is abiding by this. doesn't feel he needs that much Haldol. PLAN: cont current meds watch for akathisia encouraged to use Ativan prn if experiencing any med s/e decr Haldol to 5mg bid from 01/04 Objective: Vital Signs Temp Pulse Resp BP Pulse Ox 36.8 C 110 H 16 127/80 H 95 05/26/18 06:00 05/26/18 06:00 05/26/18 06:00 05/26/18 06:00 05/26/18 06:00 - Time Spent With Patient Time Spent With Patient: 20min - Pending Discharge Pending Discharge Within 24 Hours: No Pending Discharge Within 48 Hours: No ICD10 Worksheet Patient Problems: Problems Problem Status Onset Agitation Acute Schizoaffective disorder Chronic
[2018-05-26] MEDS: METHYLFOLATE 15 MG PO SCH (08:27)
[2018-05-26] MEDS: Cariprazine Hcl [Vraylar] 1.5 MG PO SCH (08:27)
[2018-05-26] MEDS: FENOFIBRATE 145 MG TAB PO SCH (08:27)
[2018-05-26] MEDS: VENLAFAXINE XR 75 MG CAP PO SCH (08:28)
[2018-05-26] MEDS: CHOLECALCIFEROL VIT D3 1,000 UNITS TAB PO SCH (08:28)
[2018-05-26] MEDS: LABETALOL HCL 200 MG TAB PO SCH ×2 (08:28→19:30)
[2018-05-26] MEDS: LITHIUM CARBONATE ER 300 MG TAB PO SCH ×2 (08:28→19:30)
[2018-05-26] MEDS: HALOPERIDOL 5 MG TAB PO SCH ×2 (08:28→19:30)
[2018-05-26 09:51] LABS: PLATELET COUNT 562 10^3/uL (150-400)
[2018-05-26] MEDS: LEVOTHYROXINE 50 MCG TAB PO SCH (10:04)
[2018-05-26] MEDS: LORazepam 0.5 MG TAB PO PRN (13:33)
[2018-05-26] MEDS: lamoTRIgine 100 MG TAB PO SCH (19:30)
[2018-05-26] MEDS: LORazepam 1 MG TAB PO SCH (19:35)
[2018-05-27] MEDS: LORazepam 0.5 MG TAB PO PRN ×2 (00:58→12:17)
[2018-05-27] MEDS: CHOLECALCIFEROL VIT D3 1,000 UNITS TAB PO SCH (08:14)
[2018-05-27] MEDS: HALOPERIDOL 5 MG TAB PO SCH ×2 (08:14→19:29)
[2018-05-27] MEDS: LEVOTHYROXINE 50 MCG TAB PO SCH (08:14)
[2018-05-27] MEDS: VENLAFAXINE XR 75 MG CAP PO SCH (08:15)
[2018-05-27] MEDS: LABETALOL HCL 200 MG TAB PO SCH ×2 (08:15→19:31)
[2018-05-27] MEDS: LITHIUM CARBONATE ER 300 MG TAB PO SCH ×2 (08:15→19:30)
[2018-05-27] MEDS: FENOFIBRATE 145 MG TAB PO SCH (08:15)
[2018-05-27] MEDS: Cariprazine Hcl [Vraylar] 1.5 MG PO SCH (08:20)
[2018-05-27] MEDS: METHYLFOLATE 15 MG PO SCH (08:20)
[2018-05-27] MEDS: NICOTINE POLACRILEX 2 MG GUM B PRN (10:56)
[2018-05-27] MEDS ORDERED: HALOPERIDOL 5 MG TAB PO ONE (11:45)
--- NOTE | 2018-05-27 12:33 | ASMTCMCOM ---
CM Note CM Note Notes: Pt. reports feeling "okay, little bit on edge". Pt. reports sleeping fine, but waking up very early. Pt. reports eating well and attending almost every group. Pt. reports no issues with his current medication. Pt. denied SI, HI, and AVH. Pt. reports some paranoia around "hard to describe In someway I'm responsible for other people feeling bad. Don't want to hurt other people's feelings". Pt. presents as alert, calm, groomed, good eye contact, linear, and with a mostly pleasant demeanor. Staff report pt. sleeping less than 4.5 hours, being medication compliant and pacing some. Date Signed: 05/27/2018 12:32 PM Electronically Signed By:Kellen Huffman
--- NOTE | 2018-05-27 15:14 | SOAPPROG ---
SOAP Progress Note Assessment/Plan: Assessment: 37yo with hx of schizoaffective d/o, depr type. decompensated likely d/t nonadherence or possibly polydipsia. Li 0.4 on admit. Was reportedly taking meds under supervision at [facility]. 05/26/18 14:28 slept 7.5hr. signed in voluntarily. on interview, pt casually dressed, w/peter, good ec, nml speech rate/vol, articulate, bouncing legs while sitting throughout interview, reports mood is "fine", denied anxiety. affect constricted but appropriate to conversation, tp/ tc- reality based, linear responses to questions. denied AH, denied depr. denied SI or thoughts to harm others. i/j fair. cognition conversationally intact. denied med s/e altho feels he forgets names easily mentions "they (staff) are limiting my water" and is abiding by this. doesn't feel he needs that much Haldol. PLAN: cont current meds watch for akathisia encouraged to use Ativan prn if experiencing any med s/e decr Haldol to 5mg bid from 01/0405/27/18 15:05 slept <4hr last night... continues on fluid restriction. bouncing legs a lot while sitting. pacing halls. asking if needs Haldol at all. discussed dose decrease with incr in Vraylar. denies any current psychotic or mood sxs, altho depr "comes and goes". cooperative, groomed, polite, good eye contact, nml speech rate/vol, mood "okay ", affect controlled, linear responses to questions, denied any AH or SI. attending some groups. i/j fair PLAN Increase Vraylar to 3mg qd from 1.5mg qd, and decrease Haldol to 5mg qhs start tomorrow and monitor. Does have enough Vraylar from home supply to make this dose change. Bouncing legs a lot when sitting, also pacing halls. Has reported feeling restless, using prn Ativan periodically for this. Has Ativan 2mg HS. Continue with prn Ativan. Consider change to Klonopin if indicated. Already on B larissa so will avoid prn propranolol Asking for AG privs. Has been fine with this during prior admissions. Did not sleep well last night, and with recent decrease in Haldol and other med changes. will have primary team assess for change privs in AM Li level 05/29 Objective: Vital Signs Temp Pulse Resp BP Pulse Ox 36.9 C 106 H 16 132/68 H 96 05/27/18 06:00 05/27/18 06:00 05/27/18 06:00 05/27/18 06:00 05/27/18 06:00 Laboratory Results 05/26/18 06:00 Medications Generic Name Dose Route Start Last Admin Trade Name Lottie PRN Reason Stop Dose Admin Levothyroxine Sodium 50 mcg 05/24/18 10:00 05/27/18 08:14 Synthroid PO 11/20/18 09:59 50 mcg DAILY@1000 TARYN Labetalol HCl 200 mg 05/23/18 22:30 05/27/18 19:31 Trandate PO 11/19/18 22:29 200 mg BID TARYN Lamotrigine 450 mg 05/24/18 08:26 05/27/18 19:30 Lamictal PO 11/19/18 22:44 450 mg HS [facility] [place] Carbonate 900 mg 05/24/18 09:00 05/27/18 19:30 Lithobid PO 11/20/18 08:59 900 mg BID [facility] Cholecalciferol 1,000 units 05/24/18 09:00 05/27/18 08:14 Vitamin D PO 11/20/18 08:59 1,000 units DAILY [facility] Fenofibrate 145 mg 05/25/18 09:00 05/27/18 08:15 Tricor PO 11/21/18 08:59 145 mg DAILY [facility] Haloperidol 5 mg 05/27/18 21:00 05/27/18 19:29 Haldol PO 11/23/18 20:59 5 mg HS TARYN Lorazepam 2 mg 05/23/18 22:45 05/27/18 19:30 Ativan PO 11/19/18 22:44 2 mg HS TARYN Venlafaxine HCl 150 mg 05/24/18 09:00 05/27/18 08:15 Effexor Xr PO 11/20/18 08:59 150 mg DAILY [facility] Miscellaneous Medication 15 mg 05/24/18 09:00 05/27/18 08:20 L-Methylfolate PO 11/20/18 08:59 15 mg DAILY TARYN Miscellaneous Medication 3 mg 05/28/18 09:00 Cariprazine Hcl [Vraylar] PO 11/20/18 12:59 DAILY TARYN - Time Spent With Patient Time Spent With Patient: 20min - Pending Discharge Pending Discharge Within 24 Hours: No Pending Discharge Within 48 Hours: No ICD10 Worksheet Patient Problems: Problems Problem Status Onset Agitation Acute Schizoaffective disorder Chronic
[2018-05-27] MEDS: LORazepam 1 MG TAB PO SCH (19:30)
[2018-05-27] MEDS: lamoTRIgine 100 MG TAB PO SCH (19:30)
--- NOTE | 2018-05-28 07:11 | SOAPPROG ---
SOAP Progress Note Assessment/Plan: Assessment: Schizoaffective disorder, bipolar type. Improvement noted. (see subjective/ objective note). Patient could benefit from continued inpatient hospitalization for crisis stabilization, safety, and medication evaluation. [place] plasma level tomorrow prior to discharge. Plan: (1) Psychotropic medications: After reviewing options, risks, and benefits patient agrees to continue current medications. No medication changes at this time as more time is needed to determine ongoing tolerability and efficacy. Plan is to continue to observe patient for response and side effects from medications, and ongoing monitoring and evaluation. (2) Review with patient informed consent and recommendations for psychotropic medication treatment listed below (3) Labs: lithium plasma level tomorrow prior to discharge (4) Therapy: continue milieu and group therapy (5) Further investigation including gathering information from patients relatives and review of past case records to inform treatment plan. (6) Safety/Wellness plan and follow-up outpatient appointments to be established prior to discharge. Next steps are for patient to meet with critical care transport nurse to plan a safe discharge plan and establish outpatient services for ongoing treatment. (7) Confer with inpatient treatment team regarding treatment plan. (8) Legal status: voluntary (9) Consider discharge on Monday if patient is in stable condition, safe, and has a safe discharge plan. PSYCHOTROPIC MEDICATION TREATMENT INFORMED CONSENT and RECOMMENDATIONS: Review nature of condition, diagnosis, and prognosis. Review nature and purpose of psychotropic medication treatment. Review type of psychotropic medications being ordered. Review risk and benefits of psychotropic medication treatment. Review probable length of time patient will need to take medications. Review risk and benefits of not undergoing psychotropic medication treatment. Review alternative treatments to psychotropic medications. Review psychotropic medications contraindications, drug-drug interactions, side effects, and importance of reporting any side effects to a psychiatric provider or nurse during inpatient hospitalization, and upon discharge to patients psychiatric outpatient provider, primary care provider, or other health lead caregiver. Review importance of asking a nurse, psychiatric provider, or primary care provider any questions or problems concerning the psychotropic medications. Verify patient understands the information that has been provided, and understands, accepts, and agrees to psychotropic medications. Review patients safety plan and importance of patient to report to staff while hospitalized if patient is ever a danger to self/others, or unable to care for self, and upon discharge, the importance for patient to contact [facility] or [facility], or go to the nearest emergency room, if patient is ever a danger to self/others, or unable to care for self. Recommend that upon discharge patient establish medication management treatment with a psychiatric provider, establishes routine therapy appointments, and follow-up with primary care provider. Verify patient understands and agrees to these recommendations. 05/28/18 07:10 Subjective: Following up with patient for evaluation of abigail, psychosis, and safety. Patient reports, "Feeling much better, and getting more sleep." Patient expresses the following psychiatric symptoms none. Patient reports taking medications as prescribed, and describes response to medications as good. Patient does not report undesirable side effects from the medications, and agrees to continue current medications. Patient reports appetite as good, and reports eating all meals. Patient describes getting 5 hours of sleep and feeling rested this morning. Objective: Vital Signs Temp Pulse Resp BP Pulse Ox 36.5 C 98 20 139/83 H 96 05/28/18 06:00 05/28/18 06:00 05/28/18 06:00 05/28/18 06:00 05/28/18 06:00 Laboratory Results 05/26/18 06:00 NURSING REPORT: Consulted with nursing for update on patients progress in treatment. Nurses report patient is engaged in treatment, is attending groups, slept 5 hours, expresses the following psychiatric symptoms: none, exhibits the following psychiatric symptoms: none, is eating all meals, is agreeable to medications and taking as prescribed with no report of side effects, with no s/ s of EPS/akathisia, and denies SI/HI, denies A/V hallucinations, and denies delusions. DIRECTOR ON AIR UPDATE: establishing discharge plan to [facility] tomorrow MSE: The patient is a well-nourished male looking stated chronological age. Attire is appropriate and dress is casual and is neat. Grooming status is appropriate and neat. Ambulation is independent. Gait is normal and coordinated. Posture is normal and relaxed. Eye contact is appropriate, and adequate. Motor activity is appropriate with purposeful, organized, coordinated movements; with no involuntary movements. Attitude is cooperative and friendly. Patient appears attentive and relates well to this interviewer. Language production is spontaneous. R/R/V normal. Articulation is clear. Patient reports mood as okay with congruent affect. Patients thought process is linear and logical, with no loose associations, tangential thought, thought blocking, concrete thinking, or any other signs of formal thought disorder. Associations are connected. Patient does not report suicidal/homicidal thoughts , ideas, or plans. Patient denies auditory, visual hallucinations. Patient denies delusions. Patient does not appear to be attending to internal stimuli. Patients attention and concentration are adequate. Patient is oriented to person, place, time, and situation. Patients insight is fair. Patients judgment is fair. No evidence of gross cognitive dysfunction at any point during the interview. No evidence of apparent dysfunction in recent or remote memory. - Time Spent With Patient Time Spent With Patient: 15 minutes, met with patient individually. - Pending Discharge Pending Discharge Within 24 Hours: Yes Pending Discharge Within 48 Hours: No Pending Discharge Date: 05/29/18 Pending Discharge Time: 11:00 ICD10 Worksheet Patient Problems: Problems Problem Status Onset Agitation Acute Schizoaffective disorder Chronic
[2018-05-28] MEDS: NICOTINE POLACRILEX 2 MG GUM B PRN (07:29)
[2018-05-28] MEDS: LABETALOL HCL 200 MG TAB PO SCH ×2 (08:10→19:29)
[2018-05-28] MEDS: VENLAFAXINE XR 75 MG CAP PO SCH (08:11)
[2018-05-28] MEDS: CHOLECALCIFEROL VIT D3 1,000 UNITS TAB PO SCH (08:11)
[2018-05-28] MEDS: METHYLFOLATE 15 MG PO SCH (08:11)
[2018-05-28] MEDS: FENOFIBRATE 145 MG TAB PO SCH (08:11)
[2018-05-28] MEDS: Cariprazine Hcl [Vraylar] 1.5 MG PO SCH (08:12)
[2018-05-28] MEDS ORDERED: LITHIUM CARBONATE ER 450 MG TAB PO ONE (09:00)
[2018-05-28] MEDS: LEVOTHYROXINE 50 MCG TAB PO SCH (10:09)
--- NOTE | 2018-05-28 11:55 | ASMTBHDC ---
Notes Note: Notes: CC faxed all of client's hospital information to Nadeen Chavez with [facility] client will be discharging to from this unit. Client remains doing better on the unit than previous days. Also, spoke with Pop from [facility], who noted "I might come by later to see how he is doing." Date Signed: 05/28/2018 11:54 AM Electronically Signed By:Kurt Ferguson
[2018-05-28] MEDS: LORazepam 0.5 MG TAB PO PRN (14:25)
[2018-05-28] MEDS: lamoTRIgine 100 MG TAB PO SCH (19:28)
[2018-05-28] MEDS: HALOPERIDOL 5 MG TAB PO SCH (19:29)
[2018-05-28] MEDS: LITHIUM CARBONATE ER 300 MG TAB PO SCH (19:29)
[2018-05-28] MEDS: LORazepam 1 MG TAB PO SCH (19:29)
[2018-05-29] MEDS: LORazepam 0.5 MG TAB PO PRN (01:20)
[2018-05-29 06:43] VITALS: BP 132/73
--- NOTE | 2018-05-29 07:38 | ASMTBHDC ---
Notes Note: Notes: CC confirmed client's discharge plan and follow up: Follow up with: [facility] [address] [place] [id number] Intake Appt: MondayMay 29 (05/29/18) at 10am Date Signed: 05/29/2018 07:37 AM Electronically Signed By:Kurt Ferguson
[2018-05-29] MEDS: FENOFIBRATE 145 MG TAB PO SCH (07:45)
[2018-05-29] MEDS: LITHIUM CARBONATE ER 300 MG TAB PO SCH (07:45)
[2018-05-29] MEDS: LABETALOL HCL 200 MG TAB PO SCH (07:45)
[2018-05-29] MEDS: VENLAFAXINE XR 75 MG CAP PO SCH (07:46)
[2018-05-29] MEDS: CHOLECALCIFEROL VIT D3 1,000 UNITS TAB PO SCH (07:46)
[2018-05-29] MEDS: Cariprazine Hcl [Vraylar] 1.5 MG PO SCH (07:46)
[2018-05-29] MEDS: METHYLFOLATE 15 MG PO SCH (07:46)
[2018-05-29 08:20] LABS: PLATELET COUNT 449 10^3/uL (150-400)
--- NOTE | 2018-05-29 08:28 | BDS ---
REASON FOR ADMISSION: From the ED note dated 05/23/2018, the patient presented to the emergency department on an M1 hold. The M1 hold was placed by [facility]. The patient is currently receiving treatment at [facility]. The patient has been gravely disabled, wandering, leaving the home, smoking in his room, drinking water with cigarettes in it. The patient denied suicidal and homicidal ideation. The patient was admitted involuntarily on an M1 hold due to being gravely disabled due to a mental illness. The patient was admitted for safety crisis stabilization and medication management. ADMITTING DIAGNOSIS: Schizoaffective disorder, bipolar type. ADMISSION PHYSICAL EXAM: The patient was seen by Dr. Johnson on 05/24/2018, for an internal medicine consultation for medical clearance for inpatient Behavioral Health stay. Dr. Johnson reported he saw no medical contraindications to the patient's continued stay on the inpatient behavioral health unit or to any psychiatric medications or procedures. For further details, please refer to Dr. Johnson's internal medicine consultation note dated 05/24/2018. ADMISSION LABS: From the emergency department, CBC showed an elevated white blood cell count at 12.74 and an elevated platelet count at 458. The patient had anemia with a hemoglobin of 12.4 and hematocrit of 37.7. There was elevation of absolute neutrophils and absolute lymphocytes as well as absolute basophils. Serum chemistry showed normal renal function and electrolytes. Hemoglobin A1c was normal at 5.4. Liver function tests were normal. TSH was normal at 1.39. Toxicology screen in the serum showed a subtherapeutic lithium level of 0.4. Toxicology screen was negative for salicylates, acetaminophen or ethyl alcohol. Toxicology screen in the urine was negative for any substances of abuse. CBC from 05/26/2018, white blood cell count had decreased, however, was still elevated at 10.40, MCHC was low at 32.1, platelet count had trended upward with a platelet count of 562, absolute monocytes were elevated at 0.87 and absolute neutrophils were elevated at 0.41. Repeat CBC 05/29/18 platelet count decreased to 449. Fasting lipid panel from 05/26/2018, was within normal limits except triglycerides were elevated at 379. Cholesterol was elevated at 208, VLDL cholesterol was elevated at 76, and non-HDL cholesterol was elevated at 166. Urinalysis from 05/25/2018 was within normal limits. Urine color was red, urine appearance clear, urine pH was 7.0, and urine specific gravity was 1.002. BMP from 05/29/18 within normal limits. [place] level 05/29/18: 0.9 HOSPITAL COURSE: The most prominent symptoms and behaviors while the patient was here were decreased need for sleep. Upon admission, the patient did not sleep the 1st night. The next several nights, the patient slept 1-2 hours. The patient's sleep has improved. The patient sleeping 5-6 hours several nights prior to discharge. The patient was also hyperactive, pacing the halls in the middle of the night at time of admission. Patient activity normal at time of discharge. Treatment modalities utilized were milieu and group therapy. The patient's outpatient medications were continued. Effexor XR 150 mg p.o. daily was continued to target depression symptoms. Medication was tolerated with no report of side effects and with good response. Ativan 2 mg p.o. at bedtime was continued, was tolerated with no report of side effects. [place] ER, Lithobid 900 mg p.o. twice daily was continued and was tolerated with no report of side effects. The patient was observed drinking excessive amounts of fluids. The patient was placed on fluid monitoring. It is possible that the patient's excessive fluid intake was the cause of the sub therapeutic lithium level at time of admission, which was 0.4. At time of discharge on same lithium ER dose, patient lithium level 0.9. Synthroid 50 mcg p.o. daily at 1000 was continued and was tolerated with no report of side effects. Lamictal 450 mg p.o. at bedtime was continued and was tolerated with no report of side effects. Labetalol 200 mg p.o. twice daily was continued and was tolerated with no report of side effects, L-methyl folate 15 mg p.o. daily was continued and was tolerated with no report of side effects. The patient was admitted on Haldol 5 mg p.o. daily and 10 mg p.o. at bedtime. This was tapered throughout the course of the patient's hospitalization. The patient is currently on Haldol 5 mg p.o. at bedtime, and this medication has been tolerated with no report of side effects. Fenofibrate 145 mg p.o. daily was continued and was tolerated with no report of side effects. Vitamin D3 1000 units p.o. daily was continued and was tolerated. The patient was admitted on Vraylar 1.5 mg p.o. daily. This medication was titrated to 3 mg p.o. daily and was tolerated with no report of side effects. The patient will discharge on these current medications at these current doses. The patient has improved considerably since time of admission, and no longer meets criteria for inpatient psychiatric hospitalization. The patient reports he has improved since admission. The patient states to be in stable condition, feels safe to discharge and he contracts for safety. The patient's response to treatment was good. There were no adverse or unexpected results of treatment. The patient was safe throughout his stay, active in treatment, attended and engaged in groups, and was appropriate with staff and other patients. The patient met with the treatment team prior to discharge to assess readiness to discharge and reviewed discharge plan. The treatment team consensus is the patient is in stable condition, has a safe discharge plan, and is ready to discharge today. CONDITION AT DISCHARGE: The patient is in stable condition and is no longer a danger to self or others and is not gravely disabled due to a mental illness. The patient is no longer in need of inpatient level of care and can safely and effectively be treated within the community. The patient's level of risk at time of discharge is low. MENTAL STATUS EXAM: The patient is a well-nourished male looking stated chronological age. Attire is appropriate. Dress is casual and neat and clean. Grooming status is appropriate and clean. Ambulation is independent. Gait is normal and coordinated. Posture is normal and relaxed. Eye contact is appropriate and adequate. Motor activity is appropriate with purposeful, organized, coordinated movements with no involuntary movements noted. The patient is cooperative and friendly. The patient appears attentive and relates well to this interviewer. Language production is spontaneous. Rate , rhythm and volume are normal. Articulation is clear. The patient reports mood as "okay" with adequately arranged and congruent affect. The patient's thought process is linear and logical with no loose associations, tangential thought, thought blocking, concrete thinking, or any other signs of formal thought disorder. The patient does not report suicidal, homicidal thoughts, ideas, or plans. The patient denies auditory or visual hallucinations. The patient denies delusions. The patient does not appear to be attending to internal stimuli. The patient is oriented to person, place, time, and situation. The patient's attention and concentration are adequate. The patient 's insight and judgment are adequate. There is no evidence of gross cognitive dysfunction at any point during the interview and no evidence of apparent dysfunction in recent or remote memory noted. The patient does not report undesirable side effects from the current medications. DISCHARGE DIAGNOSIS: Schizoaffective disorder, bipolar type. CURRENT MEDICATIONS: After reviewing options, risks, and benefits, the patient agrees to continue current medications. The patient's current medications are: 1. Effexor XR 150 mg p.o. daily. 2. Ativan 2 mg p.o. at bedtime p.r.n., Ativan 1 mg p.o. three times daily p.r.n. 3. Lithobid 900 mg p.o. twice daily. 4. Synthroid 50 mcg p.o. daily at 1000. 5. Lamictal 450 mg p.o. at bedtime. 6. Labetalol 200 mg p.o. twice daily. 7. L-methyl folate 15 mg p.o. daily. 8. Haldol 5 mg p.o. at bedtime. 9. Fenofibrate 160 mg p.o. daily. 10. Vitamin D3 1000 units p.o. daily. 11. Vraylar 3 mg p.o. daily. The patient reports he has prescriptions at [facility] and he will discharge back to [facility] in the care of [facility]. The patient states he does not need any prescriptions at time of discharge. Medications are reviewed with the patient at time of discharge to ensure accuracy and patient understanding. DISPOSITION: The patient left hospital independently and voluntarily with plans to return to [facility] under the care of [facility]. FOLLOW UP: facilities coordinator reports the appropriate outpatient follow-up services have been established and outpatient appointments have been scheduled. The patient received written instructions with times and dates of outpatient follow-up appointments. The following follow-up recommendations were provided to the patient at discharge: Continue psychotropic medications as prescribed and attend appointments as scheduled. Report any side effects to a psychiatric outpatient provider, a primary care provider, or other health home health care case manager. Address any questions or problems concerning the psychotropic medications with a psychiatric outpatient provider, a primary care provider, or other health home health care case manager. Contact [facility] or [facility], or go to the nearest emergency room, if you are ever a danger to yourself/others, or unable to care for yourself. As soon as possible, establish a routine medication management treatment with a psychiatric provider, establish routine therapy appointments, and follow-up with a primary care provider. LEGAL COURSE: The patient was admitted on an M1 hold for involuntary inpatient psychiatric hospitalization. The patient became voluntary during his stay. The patient discharged today independently and voluntarily. ATTITUDE AT TIME OF DISCHARGE: The patient reports he is ready to discharge today. The patients attitude was positive at time of discharge, and patient reports looking forward to discharging today. The patient reports he feels safe to discharge, is no longer a danger to himself or others, is in stable condition, and contracts for safety. Patient states he will continue medications as prescribed, and establish medication management treatment with an outpatient provider after discharge. Patient reports he understands the information that has been provided to him, and he understands, accepts, and agrees to psychotropic medications. Patient describes internal protective factors as the coping skills he has learned while hospitalized here, and he plans to continue to practice these coping skills after discharge. LABS AND STUDIES: There were no pending labs or studies at time of discharge. ADVANCE DIRECTIVES: There were no advance directives on file, and patient was full code during this hospitalization. The following psychotropic medication treatment informed consent and recommendations were provided to the patient at time of discharge. Patient reports he understands, accepts, and agrees to the information that has been provided. PSYCHOTROPIC MEDICATION TREATMENT INFORMED CONSENT and RECOMMENDATIONS: Review nature of condition, diagnosis, and prognosis. Review nature and purpose of psychotropic medication treatment. Review type of psychotropic medications being prescribed. Review risk and benefits of psychotropic medication treatment. Review probable length of time will need to take medications. Review risk and benefits of not undergoing psychotropic medication treatment. Review alternative treatments to psychotropic medications. Review psychotropic medications contraindications, side effects, and importance of reporting any side effects to a psychiatric provider, primary care provider, or other health home health care case manager. Review importance of her asking a psychiatric provider or primary care provider any questions or problems concerning the psychotropic medications. Review safety plan and the importance to contact [facility] or [facility] , or go to the nearest emergency room, if ever a danger to yourself/others, or unable to care for yourself. Recommend upon discharge to establish routine medication management treatment with a psychiatric provider, establish routine therapy appointments, and follow-up with a primary care provider. Verify patient understands, accepts, and agrees to the information that has been provided. /[id number]/MODL MTDD
[2018-05-29] MEDS: LEVOTHYROXINE 50 MCG TAB PO SCH (09:25)
== END 2018-05-29 10:45 | disposition home or self-care (01) | DRG 885 ==
LOC: EDUNIT# → BBEH 21:05
PROVIDERS: ADMIT Psychiatry & Neurology Psychiatry; ATTEND Psychiatry & Neurology Psychiatry
DX: F25.0 Schizoaffective disorder, bipolar type (principal); E87.1 Hypo-osmolality and hyponatremia; E03.9 Hypothyroidism, unspecified; E21.3 Hyperparathyroidism, unspecified; I10 Essential (primary) hypertension; F17.200 Nicotine dependence, unspecified, uncomplicated; D64.9 Anemia, unspecified
CPT/HCPCS: 80307; G0480

== ENCOUNTER 2018-12-13 11:59 | Inpatient (IN) | payer OTHER ==
[2018-12-13] MEDS ORDERED: OLANZapine DISINTEGR 5 MG TAB PO ONE (12:37)
--- NOTE | 2018-12-13 12:37 | EDPHY ---
H & P Time Seen by Provider: 12/13/18 12:15 HPI/ROS: HPI: This is a 38-year-old male who presents with Chief Complaint: Psychosis, M1 hold Location: Psychiatric Quality: Psychosis Duration: Unknown Signs and Symptoms: + auditory hallucinations, visual hallucinations, no suicidal ideation with a plan, no homicidal ideation, + paranoia Timing: Acute on chronic Severity: Severe Context: Patient presents on M1 hold for concerns of disorganized thought process, lability and paranoia by his father. Patient has a history of schizoaffective bipolar disorder. Patient reports that he has not been taking his medications "for some time." He endorses auditory hallucinations. He feels paranoid. He denies drug use. Heavy tobacco user. Very difficult historian due to clinical condition. Modifying Factors: None Comment: ROS: A comprehensive 10 system review of systems is otherwise negative aside from elements mentioned in the history of present illness. MEDICAL/SURGICAL/SOCIAL HISTORY: Medical history: BIPOLAR, HYPOTHYROID, pseudoseizures, tachycardia Surgical history: Parathyroidectomy Social history: Heavy tobacco user. Disabled. Family history noncontributory. CONSTITUTIONAL: Adult white male, untidy, long hair, clenching fists and pacing around room, uncooperative, awake and alert, no obvious distress HEENT: Atraumatic and normocephalic, PERRL, EOMI. Nares patent; no rhinorrhea; no nasal mucosal edema. Tympanic membranes clear. Oropharynx clear, no exudate and moist pink mucosa. Airway patent. No lymphadenopathy. No meningismus. Cardiovascular: Normal S1/S2, regular rate, regular rhythm, without murmur rub or gallop. PULMONARY/CHEST: Symmetrical and nontender. Clear to auscultation bilaterally. Good air movement. No accessory muscle usage. ABDOMEN: Soft, nondistended, nontender, no rebound, no guarding, no peritoneal signs, no masses or organomegaly. No CVAT. EXTREMITIES: 2/2 pulses, strength 5/5, no deformities, no clubbing, no cyanosis or edema. NEUROLOGICAL: no focal neuro deficits. GCS 15. SKIN: Warm and dry, no erythema. no rash. Good capillary refill. PSYCH: Poor eye contact, + flight of ideas, tangential disorganized thought process, poor insight and judgment, + auditory hallucinations, visual hallucinations, no suicidal ideation with a plan, no homicidal ideation, + paranoia Source: Patient, Family, RN/MD Exam Limitations: Clinical condition - Medical/Surgical History Hx Asthma: No Hx Chronic Respiratory Disease: No Hx Diabetes: No Hx Cardiac Disease: No Hx Renal Disease: No Hx Cirrhosis: No Hx Alcoholism: No Hx HIV/AIDS: No Hx Splenectomy or Spleen Trauma: No Other PMH: BIPOLAR, HYPOTHYROID, parathyroidectomy, hz pseudoszs, tachycardia - Social History Smoking Status: Heavy smoker Constitutional: Initial Vital Signs Temperature (C) 36.9 C 12/13/18 12:12 Heart Rate 96 12/13/18 12:12 Respiratory Rate 18 12/13/18 12:12 Blood Pressure 143/89 H 12/13/18 12:12 O2 Sat (%) 96 12/13/18 12:12 O2 Delivery Mode Room Air Allergies/Adverse Reactions: No Known Allergies Allergy (Verified 07/29/17 08:25) Home Medications: Medication Instructions Recorded Benztropine Mesylate [Cogentin 1 mg PO DAILY PRN 12/13/18 (RX)] Cholecalciferol Vit D3 [Vitamin D3 1,000 units PO DAILY 12/13/18 (*)] Deplin 15mg 15 mg PO DAILY 12/13/18 FENOFIBRATE 160 mg PO DAILY 12/13/18 Herbals/Supplements -Info Only 1 ea PO DAILY 12/13/18 Labetalol HCl [Trandate 200 mg (*)] 200 mg PO BID 12/13/18 Levothyroxine [Synthroid 50 mcg 50 mcg PO DAILY06 12/13/18 (*)] [place] Carbonate ER [Eskalith Cr 675 mg PO DAILY 12/13/18 450 mg (*)] [place] Carbonate [[place] 900 mg PO HS 12/13/18 Carbonate Tab 300 mg (*)] QUEtiapine FUMARATE [Seroquel 100 100 mg PO HS PRN 12/13/18 mg (*)] lamoTRIgine [LamICTAL 100 MG (*)] 450 mg PO HS 12/13/18 Medical Decision Making - Diagnostics Imaging Results: Imaging Impressions Chest X-Ray 12/13/18 13:02 Impression: Mild bronchitis. Otherwise negative. ED Course/Re-evaluation: Agree with M1 hold for psychosis and medication noncompliance and schizoaffective bipolar disorder. Labs and urine drug screen ordered. 1300: Notified by [facility] that WBC 18 K. Urinalysis and chest x-ray ordered. 1328: Sodium 133, BUN 10, creatinine 0.9. Urinalysis unremarkable. Urine drug screen negative. 1343: Chest X-ray shows bronchitis but no opacity, no effusion, no pneumothorax , no widened mediastinum Will place on azithromycin due to leukocytosis. No wheezing to warrant albuterol inhaler 1343: Patient is medically clear for mental health evaluation. 1455: Accepted at [address] by JUAN Goss. EMTALA form completed. This patient was seen under the supervision of my primary supervising physician. I evaluated care for this patient independently. Differential Diagnosis: Differential diagnosis includes but is not limited to major depression, anxiety disorder, schizophrenia, bipolar disorder, intoxicant use, suicidal ideation, psychosis, abigail. - Data Points Laboratory Results: Laboratory Results 12/13/18 12:20 12/13/18 12:20 12/13/18 12/13/18 12/13/18 12:20 12:20 12:20 WBC RBC Hgb Hct MCV MCH MCHC RDW Plt Count MPV Neut % (Auto) Lymph % (Auto) [place] % (Auto) Eos % (Auto) Baso % (Auto) Nucleat RBC Rel Count Absolute Neuts (auto) Absolute Lymphs (auto) Absolute Monos (auto) Absolute Eos (auto) Absolute Basos (auto) Absolute Nucleated RBC Immature Gran % Immature Gran # Sodium 133 mEq/L L mEq/L (135-145) Potassium 4.5 mEq/L mEq/L (3.5-5.2) Chloride 101 mEq/L mEq/L (97-110) Carbon Dioxide 20 mEq/l L mEq/l (22-31) Anion Gap 12 mEq/L mEq/L (6-14) BUN 10 mg/dL mg/dL (7-23) Creatinine 0.9 mg/dL mg/dL (0.7-1.3) Estimated GFR > 60 Glucose 113 mg/dL H mg/dL (70-100) Calcium 10.0 mg/dL mg/dL (8.5-10.4) Urine Color Urine Appearance Urine pH Ur Specific [place] Urine Protein Urine Ketones Urine Blood Urine Nitrate Urine Bilirubin Urine Urobilinogen Ur Leukocyte Esterase Urine Glucose Urine Opiates Screen NEGATIVE (NEGATIVE) Urine Barbiturates NEGATIVE (NEGATIVE) Ur Phencyclidine Scrn NEGATIVE (NEGATIVE) Ur Amphetamine Screen NEGATIVE (NEGATIVE) U Benzodiazepines Scrn NEGATIVE (NEGATIVE) [place] 0.8 mEq/L mEq/L (0.6-1.2) Urine Cocaine Screen NEGATIVE (NEGATIVE) U Marijuana (THC) Screen NEGATIVE (NEGATIVE) Ethyl Alcohol < 10 mg/dL mg/dL (0-10) 12/13/18 12/13/18 12:20 12:00 WBC 18.34 10^3/uL H 10^3/uL (3.80-9.50) RBC 4.74 10^6/uL 10^6/uL (4.40-6.38) Hgb 13.3 g/dL L g/dL (13.7-17.5) Hct 41.0 % % (40.0-51.0) MCV 86.5 fL fL (81.5-99.8) MCH 28.1 pg pg (27.9-34.1) MCHC 32.4 g/dL g/dL (32.4-36.7) RDW 14.3 % % (11.5-15.2) Plt Count 475 10^3/uL H 10^3/uL (150-400) MPV 9.8 fL fL (8.7-11.7) Neut % (Auto) 66.9 % % (39.3-74.2) Lymph % (Auto) 23.2 % % (15.0-45.0) [place] % (Auto) 6.8 % % (4.5-13.0) Eos % (Auto) 2.2 % % (0.6-7.6) Baso % (Auto) 0.5 % % (0.3-1.7) Nucleat RBC Rel Count 0.0 % % (0.0-0.2) Absolute Neuts (auto) 12.27 10^3/uL H 10^3/uL (1.70-6.50) Absolute Lymphs (auto) 4.25 10^3/uL H 10^3/uL (1.00-3.00) Absolute Monos (auto) 1.24 10^3/uL H 10^3/uL (0.30-0.80) Absolute Eos (auto) 0.40 10^3/uL 10^3/uL (0.03-0.40) Absolute Basos (auto) 0.10 10^3/uL 10^3/uL (0.02-0.10) Absolute Nucleated RBC 0.00 10^3/uL 10^3/uL (0-0.01) Immature Gran % 0.4 % % (0.0-1.1) Immature Gran # 0.08 10^3/uL 10^3/uL (0.00-0.10) Sodium Potassium Chloride Carbon Dioxide Anion Gap BUN Creatinine Estimated GFR Glucose Calcium Urine Color COLORLESS Urine Appearance CLEAR Urine pH 7.0 (5.0-7.5) Ur Specific [place] 1.002 (1.002-1.030) Urine Protein NEGATIVE (NEGATIVE) Urine Ketones NEGATIVE (NEGATIVE) Urine Blood NEGATIVE (NEGATIVE) Urine Nitrate NEGATIVE (NEGATIVE) Urine Bilirubin NEGATIVE (NEGATIVE) Urine Urobilinogen NEGATIVE EU EU (0.2-1.0) Ur Leukocyte Esterase NEGATIVE (NEGATIVE) Urine Glucose NEGATIVE (NEGATIVE) Urine Opiates Screen Urine Barbiturates Ur Phencyclidine Scrn Ur Amphetamine Screen U Benzodiazepines Scrn [place] Urine Cocaine Screen U Marijuana (THC) Screen Ethyl Alcohol Medications Given: Discontinued Medications Azithromycin (Zithromax) 500 mg PO EDNOW ONE PRN Reason: Protocol Stop: 12/13/18 13:44 Last Admin: 12/13/18 14:01 Dose: 500 mg Olanzapine (Zyprexa Zydis) 10 mg PO EDNOW ONE Stop: 12/13/18 12:38 Last Admin: 12/13/18 13:01 Dose: 10 mg Departure - Departure Disposition: [facility] IP Clinical Impression: Acute bacterial bronchitis Schizoaffective psychosis Qualifiers: Schizoaffective disorder type: bipolar Qualified Code(s): F25.0 - Schizoaffective disorder, bipolar type Condition: Fair Instructions: Acute Bronchitis (ED) Additional Instructions: Please take Zithromax daily for the next 4 days for bacterial bronchitis. Next dose is due tomorrow around 2:00 p.m. Referrals: Lucio Alvarado MD [Primary Care Provider] - As per Instructions
[2018-12-13 12:55] LABS: PLATELET COUNT 475 10^3/uL (150-400)
[2018-12-13] MEDS ORDERED: OLANZapine 5 MG TAB ONE (13:04)
[2018-12-13] MEDS ORDERED: OLANZapine DISINTEGR 5 MG TAB ONE (13:05)
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
--- NOTE | 2018-12-13 13:37 | ASMTTCLDSP ---
TLC Discharge Disposition Disposition: Answers: Admit Disposition Notes: Notes: Admit Filomena Cava. Discharge Concerns/Recommendations: Notes: In consultation with [facility] ED physician, Patricia Nolasco MD and on-call psychiatric nurse practitioner, Derek Goss APN, both concurred that pt appears to meet 27-65 criteria requiring psychiatric hospitalization as pt appears to be gravely disabled due to a mental illness condition. Pt was read the Patient Rights and Responsibilities Statement on 12/13/18 at 1310, original placed on chart, and was given photocopy of Rights. Pt signed the Patient Rights. Pt was given the 3N prohibited belongings list while in the ED. Was patient given the Answers: Yes Inpatient Behavioral Health Prohibited Belongings List while in the ED? For inpatient Derek Goss APN admission, the following psychiatrist agreed to accept patient for admission to Behavioral Health ([facility]): Type of Hold: Answers: M1/72-hour Hold Hold initiated by: Answers: Psychiatrist Date Signed: 12/13/2018 01:37 PM Electronically Signed By:Tj Deluca
[2018-12-13] MEDS ORDERED: AZITHROMYCIN 250 MG TAB PO ONE (13:43)
[2018-12-13] MEDS ORDERED: MAGNESIUM HYDROXIDE 30 ML UDCUP PO PRN (18:14)
[2018-12-13] MEDS ORDERED: MAG HYDROX/AL HYDROX/SIMETH 30 ML UDCUP PO PRN (18:14)
[2018-12-13] MEDS ORDERED: NICOTINE POLACRILEX 2 MG GUM B PRN (18:14)
[2018-12-13] MEDS: LITHIUM CARBONATE ER 300 MG TAB PO SCH (20:38)
[2018-12-13] MEDS: LABETALOL HCL 100 MG TAB PO SCH (20:39)
[2018-12-13] MEDS ORDERED: LABETALOL HCL 200 MG TAB PO SCH ×2 (21:00)
[2018-12-14] MEDS: LEVOTHYROXINE 50 MCG TAB PO SCH (05:53)
[2018-12-14] MEDS: AZITHROMYCIN 250 MG TAB PO SCH (07:55)
[2018-12-14] MEDS: FENOFIBRATE 145 MG TAB PO SCH (07:56)
[2018-12-14] MEDS: LORazepam 0.5 MG TAB PO PRN (07:56)
[2018-12-14] MEDS: LITHIUM CARBONATE ER 300 MG TAB PO SCH ×2 (07:56→21:29)
[2018-12-14] MEDS: LABETALOL HCL 100 MG TAB PO SCH ×2 (08:00→21:29)
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
[2018-12-14] MEDS: NICOTINE 21 MG/24 HR PATCH TD SCH (12:21)
--- NOTE | 2018-12-14 13:13 | ASMTCMCOM ---
CM Note CM Note Notes: CC met with pt. to complete MTP. Pt. was unable to participate in completing his MTP. Pt. reports feeling "alright". Pt. stated he didn't know what time of day it was. Pt. was unable to answer questions. Staff report pt. sleeping 1 hour last night and taking medications. Staff report pt. putting his property into his hospital toilet. Pt. was moved to high acuity for additional support and management. CC to reach out to pt's outpatient providers for follow up appointments. Date Signed: 12/14/2018 01:13 PM Electronically Signed By:Kellen Huffman
--- NOTE | 2018-12-14 16:32 | PDCONSULT ---
White Mixing Operator Note: Patient is a 38-year-old male admitted to [facility] for acute psychoses and hallucinations. Medicine was consulted to evaluate any underlying medical conditions. Patient is currently acutely psychotic. He seemed especially paranoid and suspicious of me during the interview. He refused to answer most of my questions and also seemed to be speaking to people that were not in the room. He did deny any acute complaints to me or pain. Past medical history Patient told me that he could not tell me if he had any medical problems but through chart review it appears that he at least has an underlying diagnosis of bipolar hypertension and hypothyroid Past surgical history He refused to discuss this with me Social history Unable to obtain Family history Unknown Allergies Through chart review appears he has no known drug allergies Review of systems Patient did deny any acute pain or complaints to me otherwise 10 point review of systems is negative as far as I could obtain Examination Blood pressure 137/87, heart rate 106, respirations 24, saturating 96% on room air, temperature 36.9 degrees C Gen- anxious appearing white male. Patient refused to allow me to examine him. 38 year old male with acute psychosis, medicine has been consulted for medical evaluation. acute psychosis- management per psychiatry. HTN- chart review shows he takes labetolol. Would continue this Hypothyroid- continue home synthroid, check tsh when able. bronchitis- noted on cxr, but patient refused to elaborate to me. Monitor for s/ s of infection. PPX- Ambulate tid Dispo- per psych
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
[2018-12-15] MEDS: LORazepam 0.5 MG TAB PO PRN ×3 (03:13→20:45)
[2018-12-15] MEDS: LEVOTHYROXINE 50 MCG TAB PO SCH ×2 (07:01→10:11)
[2018-12-15] MEDS: LITHIUM CARBONATE ER 300 MG TAB PO SCH ×2 (08:38→20:44)
[2018-12-15] MEDS: AZITHROMYCIN 250 MG TAB PO SCH (08:40)
[2018-12-15] MEDS: FENOFIBRATE 145 MG TAB PO SCH (08:41)
[2018-12-15] MEDS: LABETALOL HCL 100 MG TAB PO SCH ×2 (09:04→20:45)
[2018-12-15] MEDS: NICOTINE 21 MG/24 HR PATCH TD SCH (09:55)
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
[2018-12-16] MEDS: NICOTINE 21 MG/24 HR PATCH TD SCH (08:39)
[2018-12-16] MEDS: AZITHROMYCIN 250 MG TAB PO SCH ×3 (08:40→13:18)
[2018-12-16] MEDS: FENOFIBRATE 145 MG TAB PO SCH ×2 (08:40→08:59)
[2018-12-16] MEDS: LITHIUM CARBONATE ER 300 MG TAB PO SCH ×4 (08:40→20:32)
[2018-12-16] MEDS: LABETALOL HCL 100 MG TAB PO SCH ×2 (08:59→20:33)
[2018-12-16] MEDS: LEVOTHYROXINE 50 MCG TAB PO SCH ×2 (08:59→13:17)
[2018-12-16] MEDS: LORazepam 0.5 MG TAB PO PRN ×2 (13:48→20:33)
--- NOTE | 2018-12-16 17:14 | ASMTCMCOM ---
CM Note CM Note Notes: CC attempted to meet with pt. today. Pt. reports he is "getting more and more sleep" adding "tiny like Star Trek". CC asked if pt. is getting enough to eat, pt. stated "that's the problem, I can't tell". Pt. stated "my screen is pixilated". Pt. walked away from and covered a sign with his hand, and stated "I can't find my cross". Pt. ended the meeting by not longer speaking to and walking away. Pt. presents as alert, disorganized, delusional, nonsensical, appears to almost have word salad, and not cooperative. Staff report pt. sleeping 2 hours, initially spitting out his medications and then later taking some of his medications. Pt. will be placed on a STC today. Pt's father visited and waited to meet with the MD. FOC is Hoang Wynn [phone] CC to reach out to [facility] about follow up care for the pt. Date Signed: 12/16/2018 05:14 PM Electronically Signed By:Kellen Huffman
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
[2018-12-17] MEDS: LORazepam 0.5 MG TAB PO PRN ×3 (03:13→18:38)
--- NOTE | 2018-12-17 09:15 | PDMN ---
Medical Necessity Medical necessity: [facility] [place] [id number] Schizophrenia Spectrum Disorders, Adult: Inpatient Care, 6 days: 38 yo w schizoaffective D/O bipolar type, chronic w/ acute exacerbation on M1 hold for increasing disorganization and inability to care for self.
[2018-12-17] MEDS: LEVOTHYROXINE 50 MCG TAB PO SCH (11:11)
[2018-12-17] MEDS: LABETALOL HCL 100 MG TAB PO SCH ×2 (11:11→20:10)
[2018-12-17] MEDS: FENOFIBRATE 145 MG TAB PO SCH (11:12)
[2018-12-17] MEDS: LITHIUM CARBONATE ER 300 MG TAB PO SCH ×2 (11:12→20:10)
[2018-12-17] MEDS: NICOTINE 21 MG/24 HR PATCH TD SCH (11:15)
--- NOTE | 2018-12-17 11:37 | SOAPPROG ---
SOAP Progress Note Assessment/Plan: Assessment: Plan: 12/17/18 11:37 Psychosis: Remains quite psychotic. Will start Risperdal 1mg BID after consultation with Dr. Garcia. Continue lithium. Subjective: Pt seen, discussed with staff, chart reviewed. Case reviewed with Dr. Garcia from [facility]. He reports that patient's antipsychotic medications were discontinued due to his objection to taking them. He did list Haldol and Vraylar as causing EPS at some time in the past, but states this was not severe and did not figure into decision. He prefers trial of Risperdal. Attempted to discuss treatment options with patient, but he is unable to meaningfully communicate. He continues to exhibit high level of non-goal directed behavior, wandering the halls, in and out of rooms. He has been disrobing and is not consistently able to comply with verbal redirection by staff. Grooming is poor. MSE: Poorly groomed, wandering. Makes intermittent, though not meaningful eye contact. Speech is delayed, mumbled, low in tone. Affect is blunted to flat. Mood is not described. TP is disorganized with brief stereotyped phrases or word salad. TC reveals internal preoccupation, talking to self or unseen persons. Objective: Vital Signs Temp Pulse Resp BP Pulse Ox 36.8 C 83 18 142/83 H 96 12/15/18 08:00 12/15/18 09:04 12/15/18 08:00 12/15/18 09:04 12/15/18 08:00 - Time Spent With Patient Time Spent With Patient: 25" ICD10 Worksheet Patient Problems: Problems Problem Status Onset Acute bacterial bronchitis Acute Schizoaffective disorder Chronic Agitation Acute
[2018-12-17] MEDS: RISPERIDONE 1 MG ODT TAB SL SCH ×2 (12:41→20:10)
--- NOTE | 2018-12-17 15:54 | ASMTCMCOM ---
CM Note CM Note Notes: According to [facility] staff, the patient exhibits acute symptoms of psychosis. The patient's bhx includes "disrobing, attempting to expose himself, and inappropriate urination." The patient presents with disorganized speech as well. [facility] and treatment teams have collaborated; reviewed medication and discussed re-integration. Date Signed: 12/17/2018 12:00 PM Electronically Signed By:Shonna Beatty
[2018-12-18] MEDS: LORazepam 0.5 MG TAB PO PRN ×4 (01:17→21:40)
[2018-12-18] MEDS: CHOLECALCIFEROL VIT D3 1,000 UNITS TAB PO SCH (08:01)
[2018-12-18] MEDS: LITHIUM CARBONATE ER 300 MG TAB PO SCH ×2 (08:01→20:44)
[2018-12-18] MEDS: FENOFIBRATE 145 MG TAB PO SCH (08:02)
[2018-12-18] MEDS: LABETALOL HCL 100 MG TAB PO SCH ×2 (08:02→20:44)
[2018-12-18] MEDS: RISPERIDONE 1 MG ODT TAB SL SCH ×2 (08:02→20:44)
[2018-12-18] MEDS: LEVOTHYROXINE 50 MCG TAB PO SCH (10:08)
[2018-12-18] MEDS: NICOTINE 21 MG/24 HR PATCH TD SCH (10:08)
[2018-12-18] MEDS: DEPLIN 15 MG PO SCH (10:08)
--- NOTE | 2018-12-18 14:03 | SOAPPROG ---
SOAP Progress Note Assessment/Plan: Assessment: Plan: 12/17/18 11:37 Psychosis: Remains quite psychotic. Will start Risperdal 1mg BID after consultation with Dr. Garcia. Continue lithium. 12/18/18 14:04 Psychosis: Improved with Risperdal. [facility]. Subjective: Pt seen, discussed with staff. I also spoke with patient's father in my office for 20". He remains disorganized, but by all observations improved since yesterday. Father identifies a temporal association between the discontinuation of the Risperdal and pt's overall decline. He was previously living alone, driving and was compliant with meds. Dr. Garcia told me yesterday that vamsi antipsychotic medication was discontinued at pt's request. Father states pt has been persistently unhappy with the Risperdal for nonspecific reasons. Discussed the common nature of such complaints by patients with schizophrenia. Pt was more interactive with me today. He was initially lying on the floor when I entered the unit, but got up and greeted me. He acknowledged me by name. He stated that he did not know where his room was. Later able to go to his room with me. MSE: Calmer, better able to maintain attention. Affect is blunted to flat. Mood is not stated. TP remains disorganized, but improved. TC reveals continued internal preoccupation, but better overall organization. Objective: Vital Signs Temp Pulse Resp BP Pulse Ox 36.8 C 83 18 142/83 H 96 12/15/18 08:00 12/15/18 09:04 12/15/18 08:00 12/15/18 09:04 12/15/18 08:00 - Time Spent With Patient Time Spent With Patient: 35" ICD10 Worksheet Patient Problems: Problems Problem Status Onset Acute bacterial bronchitis Acute Schizoaffective disorder Chronic Agitation Acute
--- NOTE | 2018-12-18 14:20 | ASMTCMCOM ---
CM Note CM Note Notes: The patient was observed in the [place] moving from sitting, standing, to lying down. He seemed internally preoccupied. The patient clung to a piece of paper which he appeared equally fixated upon. The patient stood up, removed his pants, and continued walking as he mumbled. Date Signed: 12/18/2018 02:18 PM Electronically Signed By:Shonna Beatty
[2018-12-18] MEDS: lamoTRIgine 100 MG TAB PO SCH (20:44)
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
[2018-12-19] MEDS ORDERED: diphenhydrAMINE 50 MG CAP PO ONE (04:15)
[2018-12-19] MEDS: FENOFIBRATE 145 MG TAB PO SCH (08:51)
[2018-12-19] MEDS: DEPLIN 15 MG PO SCH (08:53)
[2018-12-19] MEDS: LORazepam 0.5 MG TAB PO PRN ×2 (08:53→16:01)
[2018-12-19] MEDS: CHOLECALCIFEROL VIT D3 1,000 UNITS TAB PO SCH (08:54)
[2018-12-19] MEDS: LEVOTHYROXINE 50 MCG TAB PO SCH (08:54)
[2018-12-19] MEDS: RISPERIDONE 1 MG ODT TAB SL SCH ×2 (08:54→19:07)
[2018-12-19] MEDS: LABETALOL HCL 100 MG TAB PO SCH ×2 (08:54→19:07)
[2018-12-19] MEDS: LITHIUM CARBONATE ER 300 MG TAB PO SCH ×2 (08:54→19:07)
[2018-12-19] MEDS: NICOTINE 21 MG/24 HR PATCH TD SCH (09:21)
--- NOTE | 2018-12-19 14:03 | SOAPPROG ---
SOAP Progress Note Assessment/Plan: Assessment: Plan: 12/17/18 11:37 Psychosis: Remains quite psychotic. Will start Risperdal 1mg BID after consultation with Dr. Garcia. Continue lithium. 12/18/18 14:04 Psychosis: Improved with Risperdal. CCM. 12/19/18 14:04 Psychosis: Remains severely decompensated. He has become physically aggressive again. Day #1.5 of Risperdal. Will [facility], monitor for aggression. Subjective: Pt seen, discussed with staff and Dr. William. Chart reviewed. Events of last night reviewed with staff also. Pt was evaluated in ED with no significant injury noted. Was in seclusion when I arrived this morning due to continued agitated and disorganized behaviors. He had voluminous diarrhea that he spread all around the room. He also spilled food and drink on the floor. Staff was able to get him into a diaper. He standing and conversant when I entered the room around 1000. He spoke in sentences, but generally nonsensically. He was able to follow verbal commands. He denied any c/o's or pain. He displayed no aggression. Staff able to escort him out of seclusion to his room to shower soon after. He was compliant with meds. Objective: Vital Signs Temp Pulse Resp BP Pulse Ox 36.8 C 119 H 26 H 136/87 H 98 12/15/18 08:00 12/19/18 05:01 12/19/18 05:01 12/19/18 05:01 12/19/18 05:01 MSE: Calm, coop. Affect is better modulated than yesterday. Mood is "good." TP is disorganized. TC reveals disorganized thoughts, internal preoccupation. - Time Spent With Patient Time Spent With Patient: 25" ICD10 Worksheet Patient Problems: Problems Problem Status Onset Acute bacterial bronchitis Acute Schizoaffective disorder Chronic Agitation Acute Fall Acute Right eyelid laceration Acute
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
[2018-12-19] MEDS: lamoTRIgine 100 MG TAB PO SCH (19:07)
[2018-12-20] MEDS: LORazepam 0.5 MG TAB PO PRN ×5 (02:30→23:33)
[2018-12-20] MEDS: LITHIUM CARBONATE ER 300 MG TAB PO SCH ×3 (09:14→21:19)
[2018-12-20] MEDS: DEPLIN 15 MG PO SCH (09:15)
[2018-12-20] MEDS: RISPERIDONE 1 MG ODT TAB SL SCH ×3 (09:15→21:18)
[2018-12-20] MEDS: LABETALOL HCL 100 MG TAB PO SCH ×3 (09:16→19:44)
[2018-12-20] MEDS: FENOFIBRATE 145 MG TAB PO SCH (09:16)
[2018-12-20] MEDS: CHOLECALCIFEROL VIT D3 1,000 UNITS TAB PO SCH (09:16)
[2018-12-20] MEDS: NICOTINE 21 MG/24 HR PATCH TD SCH (10:01)
[2018-12-20] MEDS: LEVOTHYROXINE 50 MCG TAB PO SCH (13:51)
--- NOTE | 2018-12-20 14:12 | SOAPPROG ---
SOAP Progress Note Assessment/Plan: Assessment: Plan: 12/17/18 11:37 Psychosis: Remains quite psychotic. Will start Risperdal 1mg BID after consultation with Dr. Garcia. Continue lithium. 12/18/18 14:04 Psychosis: Improved with Risperdal. CCM. 12/19/18 14:04 Psychosis: Remains severely decompensated. He has become physically aggressive again. Day #1.5 of Risperdal. Will [facility], monitor for aggression. 12/20/18 14:12 Psychosis: Waxing and waning course continues. This could represent delirium or catatonia. The latter is most likely given all factors and responsiveness to lorazepam. Will continue Risperdal for now, though may need to d/c this if no improvement. Will also schedule lorazepam 3-6mg total, monitor. Subjective: Pt seen, discussed with staff. Continues to demonstrate waxing and waning agitation. Conversant and oriented at times, agitated, non-verbal at others. Non-directed aggression persists. Unable to toilet appropriately when he is agitated, frequently defecating on the floor. Able to ask appropriate questions when I saw him around 1000, such as "Where am I? Where are my clothes? " Later reported by RN to be rolling on the floor in his feces, growling and crying. Responds to Ativan with reorientation, but this wears off in 2-4 hours. MSE: Relatively calm, interactive when I see him. Affect is blunted, stable. Mood is not described. TP is linear for brief periods, but he can give goal- directed answers to simple questions. TC reveals no overt psychosis. Oriented to person, place and situation. Objective: Vital Signs Temp Pulse Resp BP Pulse Ox 36.8 C 119 H 26 H 136/87 H 98 12/15/18 08:00 12/19/18 05:01 12/19/18 05:01 12/19/18 05:01 12/19/18 05:01 - Time Spent With Patient Time Spent With Patient: 25" ICD10 Worksheet Patient Problems: Problems Problem Status Onset Acute bacterial bronchitis Acute Schizoaffective disorder Chronic Agitation Acute
--- NOTE | 2018-12-20 14:15 | ASMTCMCOM ---
CM Note CM Note Notes: Ct. was not in shape to speak with this CC due to agitated and disorganized state. Ct. continues to smear feces in his room. Date Signed: 12/20/2018 02:14 PM Electronically Signed By:Irene Campos
[2018-12-20] MEDS: LORazepam 1 MG TAB PO SCH ×2 (15:57→21:20)
[2018-12-20] MEDS: lamoTRIgine 100 MG TAB PO SCH ×2 (19:23→21:18)
[2018-12-20] MEDS ORDERED: LITHIUM CARBONATE ER 450 MG TAB PO SCH (21:00)
[2018-12-21] MEDS: LORazepam 1 MG TAB PO SCH ×3 (09:15→20:31)
[2018-12-21] MEDS: LITHIUM CARBONATE ER 300 MG TAB PO SCH (09:15)
[2018-12-21] MEDS: RISPERIDONE 1 MG ODT TAB SL SCH (09:18)
[2018-12-21] MEDS: DEPLIN 15 MG PO SCH (09:42)
[2018-12-21] MEDS: CHOLECALCIFEROL VIT D3 1,000 UNITS TAB PO SCH (12:17)
[2018-12-21] MEDS: LORazepam 0.5 MG TAB PO PRN (12:17)
[2018-12-21] MEDS: FENOFIBRATE 145 MG TAB PO SCH (12:17)
[2018-12-21] MEDS: LABETALOL HCL 100 MG TAB PO SCH ×2 (12:17→20:31)
[2018-12-21] MEDS: LEVOTHYROXINE 50 MCG TAB PO SCH (12:18)
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
[2018-12-21] MEDS: NICOTINE 21 MG/24 HR PATCH TD SCH (12:46)
[2018-12-21] MEDS: ZIPRASIDONE MESYLATE 20 MG VIAL IM PRN ×2 (13:35→19:58)
--- NOTE | 2018-12-21 17:46 | SOAPPROG ---
SOAP Progress Note Assessment/Plan: Assessment: Plan: 12/17/18 11:37 Psychosis: Remains quite psychotic. Will start Risperdal 1mg BID after consultation with Dr. Garcia. Continue lithium. 12/18/18 14:04 Psychosis: Improved with Risperdal. CCM. 12/19/18 14:04 Psychosis: Remains severely decompensated. He has become physically aggressive again. Day #1.5 of Risperdal. Will [facility], monitor for aggression. 12/20/18 14:12 Psychosis: Waxing and waning course continues. This could represent delirium or catatonia. The latter is most likely given all factors and responsiveness to lorazepam. Will continue Risperdal for now, though may need to d/c this if no improvement. Will also schedule lorazepam 3-6mg total, monitor. 12/21/18 17:46 Psychosis: No change. Will switch to Geodon to hopefully better address catatonic symptoms. Will start with IM due to pt not eating. His parents state that he has improved dramatically in the past with this. Subjective: Pt seen, discussed with staff, events of last night reviewed. Current condition and past history reviewed at length with parents. They inform me that pt has experienced catatonic symptoms twice in the past and both times was greatly benefitted by Geodon. Pt in seclusion last night for physical aggression towards staff. Non-verbal with me on two encounters today. One in seclusion, sleeping on the floor and one lying quietly in his bed. Continues to eat and drink poorly. Currently lying in bed, unresponsive, mute. Affect is flat. Unable to assess further. Objective: Vital Signs Temp Pulse Resp BP Pulse Ox 36.4 C 104 H 16 136/85 H 97 12/21/18 06:00 12/21/18 06:00 12/21/18 06:00 12/21/18 06:00 12/21/18 06:00 - Time Spent With Patient Time Spent With Patient: 25" ICD10 Worksheet Patient Problems: Problems Problem Status Onset Acute bacterial bronchitis Acute Schizoaffective disorder Chronic Agitation Acute
[2018-12-21] MEDS: LITHIUM CARBONATE ER 450 MG TAB PO SCH (20:29)
[2018-12-21] MEDS: lamoTRIgine 100 MG TAB PO SCH (20:30)
[2018-12-22] MEDS: LORazepam 0.5 MG TAB PO PRN ×3 (01:02→13:29)
[2018-12-22] MEDS: LORazepam 1 MG TAB PO SCH ×3 (07:35→20:59)
[2018-12-22] MEDS: DEPLIN 15 MG PO SCH (09:03)
[2018-12-22] MEDS: CHOLECALCIFEROL VIT D3 1,000 UNITS TAB PO SCH (09:03)
[2018-12-22] MEDS: LABETALOL HCL 100 MG TAB PO SCH ×2 (09:03→21:00)
[2018-12-22] MEDS: LITHIUM CARBONATE ER 300 MG TAB PO SCH (09:04)
[2018-12-22] MEDS: FENOFIBRATE 145 MG TAB PO SCH (09:04)
--- NOTE | 2018-12-22 09:21 | ASMTCMCOM ---
CM Note CM Note Notes: Per staff ct. continues to experience regressive behaviors. He continues to pee and poop on himself and on the floor. Ct. has very brief moments of lucidity and for the most part he is unable to communicate clearly at this time. Date Signed: 12/22/2018 09:21 AM Electronically Signed By:Irene Campos
[2018-12-22] MEDS: NICOTINE 21 MG/24 HR PATCH TD SCH (10:16)
[2018-12-22] MEDS: LEVOTHYROXINE 50 MCG TAB PO SCH (10:53)
[2018-12-22] MEDS: ZIPRASIDONE MESYLATE 20 MG VIAL IM PRN ×2 (13:29→16:05)
--- NOTE | 2018-12-22 15:06 | HOSPPROG ---
Hospitalist Progress Note Assessment/Plan: asked to evaluate rash the pt has erythematous rash involving anterior aspect of lower arms bilaterally and middle back. It is pruritic. no vesicles. borders are not well defined. afebrile. #Rash -etiology unclear -will do a trial of Benadryl cream -If gets worse, consider Benadryl PO vs Hydrocortisone cream #HTN -appropriately controlled -cont home meds #Hypothyroidism -cont home meds #psychosis -per primary team Subjective: pruritic rash. no fever. no cp or sob. Objective: Vital Signs Temp Pulse Resp BP Pulse Ox 36.6 C 100 16 134/88 H 95 12/22/18 02:25 12/22/18 02:25 12/22/18 02:25 12/22/18 02:25 12/22/18 02:25 - Physical Exam Constitutional: no apparent distress Eyes: EOMI Ears, Nose, Mouth, Throat: moist mucous membranes, hearing normal Cardiovascular: No edema Respiratory: no respiratory distress Gastrointestinal: No distension Skin: warm, rash (erythematous macular patchy rash involving anterior part of forearms bilaterally and upper back. non vesicular. no purulence. no induration) ICD10 Worksheet Patient Problems: Problems Problem Status Onset Acute bacterial bronchitis Acute Schizoaffective disorder Chronic Agitation Acute
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
[2018-12-22] MEDS: LITHIUM CARBONATE ER 450 MG TAB PO SCH (20:59)
[2018-12-22] MEDS: lamoTRIgine 100 MG TAB PO SCH (21:00)
[2018-12-22] MEDS: DIPHENHYDRAMINE CREAM TP PRN (22:10)
[2018-12-23] MEDS: LORazepam 0.5 MG TAB PO PRN ×3 (00:16→23:54)
[2018-12-23] MEDS: NICOTINE 21 MG/24 HR PATCH TD SCH ×2 (08:36→12:48)
[2018-12-23] MEDS: ZIPRASIDONE MESYLATE 20 MG VIAL IM PRN (08:56)
[2018-12-23] MEDS: LABETALOL HCL 100 MG TAB PO SCH ×2 (10:00→20:21)
[2018-12-23] MEDS: LITHIUM CARBONATE ER 300 MG TAB PO SCH (10:00)
[2018-12-23] MEDS: LORazepam 1 MG TAB PO SCH ×3 (10:00→20:40)
[2018-12-23] MEDS: DEPLIN 15 MG PO SCH (10:00)
[2018-12-23] MEDS: FENOFIBRATE 145 MG TAB PO SCH (10:00)
[2018-12-23] MEDS: LEVOTHYROXINE 50 MCG TAB PO SCH (10:00)
[2018-12-23] MEDS: CHOLECALCIFEROL VIT D3 1,000 UNITS TAB PO SCH (10:00)
[2018-12-23] MEDS: DIPHENHYDRAMINE CREAM TP PRN (10:15)
[2018-12-23 12:21] LABS: PLATELET COUNT 381 10^3/uL (150-400)
--- NOTE | 2018-12-23 13:40 | HOSPPROG ---
Hospitalist Progress Note Assessment/Plan: We were asked to evaluate the pts rash. The pt is was started on Lamictal. A few days later he was noted to have a erythematous pruritic rash involving his forearm and back. He was evaluated on 08/23 and his rash was noted to involve his forearm and back. He was started on Benadryl cream. The etiology was unclear. There is no fever, vital signs are stable, and he had not facial or mucosal involvement. Overnight, his rash has increased and were asked to reevaluate him. On my exam, the bilateral forearm rash has increased significantly and involves both anterior arms bilaterally. There is not a clear border. It is macular. There are no vesicles or pustules. There is no induration. He no longer has any involvement on his back. He describes the rash as pruritic and not painful. VS continue to be within normal There are no other areas involved. No mucosal findings. No auditory or visual deficits or pain. He has remained afebrile. VS are reassuring. I obtained labs and these are consistent with mild Leukocytosis. He had Leukocytosis previously. He does not have elevated inflammatory markers. BMP is appropriate Plan: -I do not think that this is Jaylen Isael Syndrome. -The etiology is unclear and is broad -I d/w psychiatry stopping or changing meds but at this time we will cont with his current regimen -Hydrocortisone scheduled will be started -He will need intermittent evaluation to determine response to this -I dont see a clear reason for abx at this time -If Rash worsens, please call to update us. #Erythematous, macular, pruritic rash involving anterior arms #Leukocytosis -mild, ?reactive #HTN -appropriately controlled -cont home meds #Hypothyroidism -cont home meds #Acute psychosis: minimal improvement -per primary team Subjective: rash is itchy. non painful. Objective: Vital Signs Temp Pulse Resp BP Pulse Ox 36.6 C 102 H 16 131/69 H 96 12/22/18 22:03 12/23/18 06:00 12/23/18 06:00 12/23/18 06:00 12/23/18 06:00 Laboratory Results 12/23/18 12:05 12/23/18 12:05 - Physical Exam Constitutional: no apparent distress Eyes: PERRL, EOMI Ears, Nose, Mouth, Throat: moist mucous membranes, hearing normal Cardiovascular: regular rate and rhythym, No no murmur, rub, or gallop, No edema Respiratory: no respiratory distress, no rales or rhonchi, clear to auscultation Gastrointestinal: normoactive bowel sounds, soft, non-tender abdomen Skin: warm Neurologic: No AAOx3 Psychiatric: encephalopathic, No interacting appropriately Lymph, Heme, Immunologic: No petechiae ICD10 Worksheet Patient Problems: Problems Problem Status Onset Acute bacterial bronchitis Acute Schizoaffective disorder Chronic Agitation Acute
[2018-12-23] MEDS: HYDROCORTISONE 1% CREAM TP SCH ×2 (15:56→20:22)
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
[2018-12-23] MEDS: LITHIUM CARBONATE ER 450 MG TAB PO SCH (20:20)
[2018-12-23] MEDS: lamoTRIgine 100 MG TAB PO SCH (20:20)
[2018-12-24] MEDS: ACETAMINOPHEN 325 MG TAB PO PRN ×2 (02:50→16:27)
[2018-12-24] MEDS: LORazepam 0.5 MG TAB PO PRN (05:07)
[2018-12-24 07:52] LABS: PLATELET COUNT 409 10^3/uL (150-400)
[2018-12-24 09:38] LABS: CREATINE KINASE 897 IU/L (0-224)
[2018-12-24] MEDS: CHOLECALCIFEROL VIT D3 1,000 UNITS TAB PO SCH (10:42)
[2018-12-24] MEDS: LABETALOL HCL 100 MG TAB PO SCH ×2 (10:42→19:07)
[2018-12-24] MEDS: LORazepam 1 MG TAB PO SCH ×3 (10:42→19:39)
[2018-12-24] MEDS: FENOFIBRATE 145 MG TAB PO SCH (10:43)
[2018-12-24] MEDS: LITHIUM CARBONATE ER 300 MG TAB PO SCH (10:43)
[2018-12-24] MEDS: HYDROCORTISONE 1% CREAM TP SCH ×2 (10:43→19:12)
[2018-12-24] MEDS: DEPLIN 15 MG PO SCH (10:43)
[2018-12-24] MEDS: LEVOTHYROXINE 50 MCG TAB PO SCH (11:00)
--- NOTE | 2018-12-24 11:05 | ASMTCMCOM ---
CM Note CM Note Notes: Pt. was eating breakfast while meeting with CC. Pt. reports he "got a nap" adding it can be tough with a peer pt talking often. Pt. reports he slept in "short variations" adding he will "aim for more sleep". Pt. reports "think so" when asked if he is getting enough to eat. Pt. reports not knowing what his current medications are. Pt. reports he has "undo physical pain" and pointed to his right chest area. Pt. reports this pain "getting better each day". Pt. denied SI, and HI. Pt. reports "hard to tell, maybe a little bit" when asked about AVH. Pt. report "always a little bit" of paranoia, which he is used to. Pt. stated his goal is to "socialize". Pt. presents as alert, calm, engaged, good eye contact, unkempt, friendly and cooperative. Staff report pt. sleeping 3 hours and refusing his second dose of Geodon yesterday evening, aware and will change medication to pill form. Pt. is a client of [facility]. Date Signed: 12/24/2018 11:03 AM Electronically Signed By:Kellen Huffman
[2018-12-24] MEDS: NICOTINE 21 MG/24 HR PATCH TD SCH (12:28)
[2018-12-24] MEDS: ZIPRASIDONE HCL 40 MG CAP PO SCH (16:30)
--- NOTE | 2018-12-24 18:12 | SOAPPROG ---
SOAP Progress Note Assessment/Plan: Assessment: Plan: 12/17/18 11:37 Psychosis: Remains quite psychotic. Will start Risperdal 1mg BID after consultation with Dr. Garcia. Continue lithium. 12/18/18 14:04 Psychosis: Improved with Risperdal. CCM. 12/19/18 14:04 Psychosis: Remains severely decompensated. He has become physically aggressive again. Day #1.5 of Risperdal. Will [facility], monitor for aggression. 12/20/18 14:12 Psychosis: Waxing and waning course continues. This could represent delirium or catatonia. The latter is most likely given all factors and responsiveness to lorazepam. Will continue Risperdal for now, though may need to d/c this if no improvement. Will also schedule lorazepam 3-6mg total, monitor. 12/21/18 17:46 Psychosis: No change. Will switch to Geodon to hopefully better address catatonic symptoms. Will start with IM due to pt not eating. His parents state that he has improved dramatically in the past with this. 12/24/18 18:12 Psychosis/catatonia: Much improved. WIll [facility], monitor CK. Will continue Geodon for now. May have to d/c if NMS picture becomes clearer. Subjective: Pt seen, discussed with staff, chart reviewed, case discussed with parents. He had a much better WE with some clearing late Monday into yesterday. He is now conversant and alert. Offers no c/o's. States he cannot believe he has been her for more than a week. He is generally compliant with meds. Agreeable to switching to PO Geodon now that he is eating. Labs drawn this morning show LDH and CK elevated. Hospitalists notified, will follow. Like due to catatonia. Doubt NMS due to lack of any other referable sx 's. Will monitor. Rash on arms is examined. It is not indicative of SJ syndrome. Looks like contact dermatitis. Poorly groomed, coop. Affect is blunted, stable. Mood is "OK." TP is generally linear. TC reveals no overt psychosis. A&Ox3. Objective: Vital Signs Temp Pulse Resp BP Pulse Ox 36.5 C 91 16 107/58 L 96 12/24/18 05:47 12/24/18 05:47 12/24/18 05:47 12/24/18 05:47 12/24/18 05:47 Laboratory Results 12/24/18 06:00 12/24/18 06:00 - Time Spent With Patient Time Spent With Patient: 25" ICD10 Worksheet Patient Problems: Problems Problem Status Onset Acute bacterial bronchitis Acute Schizoaffective disorder Chronic Agitation Acute
[2018-12-24] MEDS: LITHIUM CARBONATE ER 450 MG TAB PO SCH (19:06)
[2018-12-24] MEDS: lamoTRIgine 100 MG TAB PO SCH (19:07)
[2018-12-25] MEDS: ACETAMINOPHEN 325 MG TAB PO PRN (01:54)
[2018-12-25] MEDS: LORazepam 0.5 MG TAB PO PRN (01:58)
[2018-12-25] MEDS: LITHIUM CARBONATE ER 300 MG TAB PO SCH (08:55)
[2018-12-25] MEDS: LABETALOL HCL 100 MG TAB PO SCH ×2 (08:55→20:19)
[2018-12-25] MEDS: FENOFIBRATE 145 MG TAB PO SCH (08:55)
[2018-12-25] MEDS: ZIPRASIDONE HCL 40 MG CAP PO SCH ×3 (08:55→17:02)
[2018-12-25] MEDS: CHOLECALCIFEROL VIT D3 1,000 UNITS TAB PO SCH (08:55)
[2018-12-25] MEDS: LORazepam 1 MG TAB PO SCH ×3 (08:55→20:19)
[2018-12-25] MEDS: DEPLIN 15 MG PO SCH (08:58)
[2018-12-25] MEDS: NICOTINE 21 MG/24 HR PATCH TD SCH (11:00)
[2018-12-25] MEDS: LEVOTHYROXINE 50 MCG TAB PO SCH (11:22)
[2018-12-25] MEDS: HYDROCORTISONE 1% CREAM TP SCH ×2 (11:23→20:22)
--- NOTE | 2018-12-25 14:28 | SOAPPROG ---
SOAP Progress Note Assessment/Plan: Assessment: Plan: 12/17/18 11:37 Psychosis: Remains quite psychotic. Will start Risperdal 1mg BID after consultation with Dr. Garcia. Continue lithium. 12/18/18 14:04 Psychosis: Improved with Risperdal. CCM. 12/19/18 14:04 Psychosis: Remains severely decompensated. He has become physically aggressive again. Day #1.5 of Risperdal. Will [facility], monitor for aggression. 12/20/18 14:12 Psychosis: Waxing and waning course continues. This could represent delirium or catatonia. The latter is most likely given all factors and responsiveness to lorazepam. Will continue Risperdal for now, though may need to d/c this if no improvement. Will also schedule lorazepam 3-6mg total, monitor. 12/21/18 17:46 Psychosis: No change. Will switch to Geodon to hopefully better address catatonic symptoms. Will start with IM due to pt not eating. His parents state that he has improved dramatically in the past with this. 12/24/18 18:12 Psychosis/catatonia: Much improved. WIll [facility], monitor CK. Will continue Geodon for now. May have to d/c if NMS picture becomes clearer. 12/25/18 14:29 Psychosis/catatonia: Continued improvement. [facility]. Subjective: Pt seen, discussed with staff. Attempted to involve in Treatment Team meeting but he was sleeping soundly. I was able to awaken him and he was alert and interactive. He reports feeling "normal mentally and emotionally." Compliant with medications and he states he is glad to be taking Geodon orally now. He is eating and drinking normally. Has been continent of urine and stool for 48 hours now. Alert, coop. Affect is restricted, stable. Mood is "normal." TP is linear, goal-directed. TC reveals no psychosis. A&Ox3. Objective: Vital Signs Temp Pulse Resp BP Pulse Ox 36.5 C 84 16 127/75 H 98 12/25/18 02:49 12/25/18 08:55 12/25/18 02:49 12/25/18 08:55 12/25/18 02:49 Laboratory Results 12/24/18 06:00 12/24/18 06:00 - Time Spent With Patient Time Spent With Patient: 15" ICD10 Worksheet Patient Problems: Problems Problem Status Onset Acute bacterial bronchitis Acute Schizoaffective disorder Chronic Agitation Acute
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
--- NOTE | 2018-12-25 16:47 | HOSPPROG ---
Hospitalist Progress Note Assessment/Plan: * Rash -distribution c/w contact dermatitis -per nursing - while he was agitated - he was showering multiple times per days then scraping his forearms on the ground wet against his sheets and the ground. Okay to use hydrocortisone 1% BID. Mostly these will heal once repeated trauma ceases. He seems to be doing better, today conversive and cooperative * Increased CPK and LDH -suspect due catatonia * Acute psychosis -per psychiatry * Increased LFT -Hep C negative in the past -outpatient follow-up * HTN -labetalol dose reduced - BP seems good so I would keep dose here Hospitalists to sign off - please re-call if additional assistance needed Subjective: Rash much better Objective: Vital Signs Temp Pulse Resp BP Pulse Ox 36.5 C 84 16 127/75 H 98 12/25/18 02:49 12/25/18 08:55 12/25/18 02:49 12/25/18 08:55 12/25/18 02:49 Laboratory Results 12/24/18 06:00 12/24/18 06:00 - Physical Exam Constitutional: no apparent distress, appears nourished, not in pain Cardiovascular: regular rate and rhythym, no murmur, rub, or gallop Respiratory: no respiratory distress, no rales or rhonchi, clear to auscultation Gastrointestinal: normoactive bowel sounds, soft, non-tender abdomen, no palpable masses Skin: abrasion, rash, other (on bilateral forearms posteriorly only) Musculoskeletal: full muscle strength, no muscle tenderness, normal joint ROM Neurologic: AAOx3 Psychiatric: interacting appropriately, No encephalopathic, No agitated ICD10 Worksheet Patient Problems: Problems Problem Status Onset Acute bacterial bronchitis Acute Agitation Acute Schizoaffective disorder Chronic
[2018-12-25] MEDS: LITHIUM CARBONATE ER 450 MG TAB PO SCH (20:19)
[2018-12-25] MEDS: lamoTRIgine 100 MG TAB PO SCH (20:19)
[2018-12-26] MEDS: LORazepam 1 MG TAB PO PRN (02:39)
[2018-12-26] MEDS: LEVOTHYROXINE 50 MCG TAB PO SCH (06:25)
[2018-12-26] MEDS: DEPLIN 15 MG PO SCH (07:54)
[2018-12-26] MEDS: CHOLECALCIFEROL VIT D3 1,000 UNITS TAB PO SCH (07:56)
[2018-12-26] MEDS: FENOFIBRATE 145 MG TAB PO SCH (07:56)
[2018-12-26] MEDS: LORazepam 1 MG TAB PO SCH ×3 (07:56→20:17)
[2018-12-26] MEDS: LABETALOL HCL 100 MG TAB PO SCH ×2 (07:57→20:17)
[2018-12-26] MEDS: NICOTINE 21 MG/24 HR PATCH TD SCH ×2 (07:57→15:11)
[2018-12-26] MEDS: ZIPRASIDONE HCL 40 MG CAP PO SCH ×2 (07:57→17:18)
[2018-12-26] MEDS: LITHIUM CARBONATE ER 300 MG TAB PO SCH (07:57)
--- NOTE | 2018-12-26 11:17 | SOAPPROG ---
SOAP Progress Note Assessment/Plan: Assessment: Plan: 12/17/18 11:37 Psychosis: Remains quite psychotic. Will start Risperdal 1mg BID after consultation with Dr. Garcia. Continue lithium. 12/18/18 14:04 Psychosis: Improved with Risperdal. CCM. 12/19/18 14:04 Psychosis: Remains severely decompensated. He has become physically aggressive again. Day #1.5 of Risperdal. Will [facility], monitor for aggression. 12/20/18 14:12 Psychosis: Waxing and waning course continues. This could represent delirium or catatonia. The latter is most likely given all factors and responsiveness to lorazepam. Will continue Risperdal for now, though may need to d/c this if no improvement. Will also schedule lorazepam 3-6mg total, monitor. 12/21/18 17:46 Psychosis: No change. Will switch to Geodon to hopefully better address catatonic symptoms. Will start with IM due to pt not eating. His parents state that he has improved dramatically in the past with this. 12/24/18 18:12 Psychosis/catatonia: Much improved. WIll [facility], monitor CK. Will continue Geodon for now. May have to d/c if NMS picture becomes clearer. 12/25/18 14:29 Psychosis/catatonia: Continued improvement. [facility]. 12/26/18 11:17 Psychosis/catatonia: Doing well. [facility]. Labs in a.m. Subjective: Pt seen, discussed with staff and parents. He continues to improve. Able to move to open unit today. Eating, drinking, grooming on his own. Compliant with medications. Seen in Treatment Team meeting and he asks appropriate questions re: discharge. [facility] It doesn't seem fair." He advocates to go back to his apartment on d/c. Marginally-groomed, coop. Affect is restricted, stable, approp. Mood is "good. " TP is linear. TC reveals no psychosis. A/C, orientation are good. Objective: Vital Signs Temp Pulse Resp BP Pulse Ox 36.5 C 90 16 113/61 96 12/26/18 05:39 12/26/18 05:39 12/26/18 05:39 12/26/18 05:39 12/26/18 05:39 Laboratory Results 12/24/18 06:00 12/24/18 06:00 - Time Spent With Patient Time Spent With Patient: 15" ICD10 Worksheet Patient Problems: Problems Problem Status Onset Acute bacterial bronchitis Acute Schizoaffective disorder Chronic Agitation Acute
--- NOTE | 2018-12-26 12:56 | ASMTCMCOM ---
CM Note CM Note Notes: The patient participated in clinical treatment team rounds. He was engaged and appropriate. The patient was moved from the high acuity to low acuity zone. According to staff, the patient is demonstrating improvement. 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 The patient reported a "distorted perception of time" to the team as well as "cramping" near his rib cage. The patient is reportedly sleeping the majority of hours during the day rather than overnight; psycho-education on sleep hygiene provided. The patient is scheduled to have labs drawn tomorrow, 12/27/18. Date Signed: 12/26/2018 12:55 PM Electronically Signed By:Shonna Beatty
[2018-12-26] MEDS: HYDROCORTISONE 1% CREAM TP SCH ×2 (15:10→20:20)
[2018-12-26] MEDS: lamoTRIgine 100 MG TAB PO SCH (20:16)
[2018-12-26] MEDS: LITHIUM CARBONATE ER 450 MG TAB PO SCH (20:16)
[2018-12-27] MEDS: LORazepam 1 MG TAB PO PRN (00:40)
[2018-12-27] MEDS: ACETAMINOPHEN 325 MG TAB PO PRN (01:28)
[2018-12-27] MEDS: LEVOTHYROXINE 50 MCG TAB PO SCH (06:07)
[2018-12-27] MEDS: LABETALOL HCL 100 MG TAB PO SCH ×2 (08:46→19:20)
[2018-12-27] MEDS: ZIPRASIDONE HCL 40 MG CAP PO SCH ×2 (08:46→17:20)
[2018-12-27] MEDS: LORazepam 1 MG TAB PO SCH ×3 (08:47→21:08)
[2018-12-27] MEDS: CHOLECALCIFEROL VIT D3 1,000 UNITS TAB PO SCH (08:47)
[2018-12-27] MEDS: FENOFIBRATE 145 MG TAB PO SCH (08:47)
[2018-12-27] MEDS: DEPLIN 15 MG PO SCH (08:47)
[2018-12-27] MEDS: LITHIUM CARBONATE ER 300 MG TAB PO SCH (08:47)
[2018-12-27] MEDS: HYDROCORTISONE 1% CREAM TP SCH ×2 (09:24→19:20)
[2018-12-27] MEDS: NICOTINE 21 MG/24 HR PATCH TD SCH (09:25)
[2018-12-27 10:19] LABS: CREATINE KINASE 94 IU/L (0-224)
--- NOTE | 2018-12-27 14:08 | ASMTCMCOM ---
CM Note CM Note Notes: CC checked in with ct. who was in bed. He said that he has been "sleeping irregularly taking short naps". He asked CC if she thinks he should get up. CC suggested ct. tries to participate in groups. Ct. reported that the plan is to have him discharge to [facility]. Date Signed: 12/27/2018 02:07 PM Electronically Signed By:Irene Campos
[2018-12-27] MEDS: lamoTRIgine 100 MG TAB PO SCH (19:19)
[2018-12-27] MEDS: LITHIUM CARBONATE ER 450 MG TAB PO SCH (19:19)
--- NOTE | 2018-12-27 19:39 | SOAPPROG ---
SOAP Progress Note Assessment/Plan: Assessment: Plan: 12/17/18 11:37 Psychosis: Remains quite psychotic. Will start Risperdal 1mg BID after consultation with Dr. Garcia. Continue lithium. 12/18/18 14:04 Psychosis: Improved with Risperdal. CCM. 12/19/18 14:04 Psychosis: Remains severely decompensated. He has become physically aggressive again. Day #1.5 of Risperdal. Will [facility], monitor for aggression. 12/20/18 14:12 Psychosis: Waxing and waning course continues. This could represent delirium or catatonia. The latter is most likely given all factors and responsiveness to lorazepam. Will continue Risperdal for now, though may need to d/c this if no improvement. Will also schedule lorazepam 3-6mg total, monitor. 12/21/18 17:46 Psychosis: No change. Will switch to Geodon to hopefully better address catatonic symptoms. Will start with IM due to pt not eating. His parents state that he has improved dramatically in the past with this. 12/24/18 18:12 Psychosis/catatonia: Much improved. WIll [facility], monitor CK. Will continue Geodon for now. May have to d/c if NMS picture becomes clearer. 12/25/18 14:29 Psychosis/catatonia: Continued improvement. [facility]. 12/26/18 11:17 Psychosis/catatonia: Doing well. [facility]. Labs in a.m. 12/27/18 19:38 Psychosis/catatonia: Continued improvement. [facility]. Finalize d/c plan. Subjective: Pt seen, discussed with staff. Continued gradual improvement. Muscle soreness is better. AFfect remains blunted, stable. Mood is "pretty good." TP is linear. TC reveals no overt psychosis. Objective: Vital Signs Temp Pulse Resp BP Pulse Ox 36.8 C 99 16 125/65 H 98 12/27/18 06:00 12/27/18 08:46 12/27/18 06:00 12/27/18 08:46 12/27/18 06:00 Laboratory Results 12/24/18 06:00 12/24/18 06:00 - Time Spent With Patient Time Spent With Patient: 15" ICD10 Worksheet Patient Problems: Problems Problem Status Onset Acute bacterial bronchitis Acute Schizoaffective disorder Chronic Agitation Acute
[2018-12-28] MEDS: LEVOTHYROXINE 50 MCG TAB PO SCH (06:23)
[2018-12-28] MEDS: DEPLIN 15 MG PO SCH (08:57)
[2018-12-28] MEDS: LITHIUM CARBONATE ER 300 MG TAB PO SCH (08:58)
[2018-12-28] MEDS: ZIPRASIDONE HCL 40 MG CAP PO SCH ×2 (08:58→18:32)
[2018-12-28] MEDS: FENOFIBRATE 145 MG TAB PO SCH (08:58)
[2018-12-28] MEDS: CHOLECALCIFEROL VIT D3 1,000 UNITS TAB PO SCH (08:58)
[2018-12-28] MEDS: LORazepam 1 MG TAB PO SCH ×3 (08:58→21:31)
[2018-12-28] MEDS: LABETALOL HCL 100 MG TAB PO SCH ×2 (08:58→21:31)
[2018-12-28] MEDS: HYDROCORTISONE 1% CREAM TP SCH ×2 (12:23→21:31)
[2018-12-28] MEDS: NICOTINE 21 MG/24 HR PATCH TD SCH (12:23)
--- NOTE | 2018-12-28 15:19 | ASMTBHDC ---
Notes Note: Notes: Pt. reports "feel like I should be gone". Pt. reports wanting to go to his appointment upon discharge and is willing to wait at home until a bed is open at [facility]. Pt. reports sleeping "pretty good". Pt. reports having "absolutly nothing to do". Pt. reports getting enough to eat and attending a "few" groups. Pt. reports having no issues with his current medications. Pt. reports having no issues while on the unit. Pt. denied SI, HI, AVH and paranoia. Pt. presents as semi-alert, calm, unkempt, good eye contact, and cooperative. Staff report pt. sleeping 5 hours and being medication compliant. CC spoke with MD after he met with pt's parents. stated pt. will be discharging to his home on Monday, and will not follow up with [facility]. stated pt's parents are looking for cpas residential program. Date Signed: 12/28/2018 03:18 PM Electronically Signed By:Kellen Huffman
--- NOTE | 2018-12-28 15:20 | SOAPPROG ---
SOAP Progress Note Assessment/Plan: Assessment: Plan: 12/17/18 11:37 Psychosis: Remains quite psychotic. Will start Risperdal 1mg BID after consultation with Dr. Garcia. Continue lithium. 12/18/18 14:04 Psychosis: Improved with Risperdal. [facility]. 12/19/18 14:04 Psychosis: Remains severely decompensated. He has become physically aggressive again. Day #1.5 of Risperdal. Will [facility], monitor for aggression. 12/20/18 14:12 Psychosis: Waxing and waning course continues. This could represent delirium or catatonia. The latter is most likely given all factors and responsiveness to lorazepam. Will continue Risperdal for now, though may need to d/c this if no improvement. Will also schedule lorazepam 3-6mg total, monitor. 12/21/18 17:46 Psychosis: No change. Will switch to Geodon to hopefully better address catatonic symptoms. Will start with IM due to pt not eating. His parents state that he has improved dramatically in the past with this. 12/24/18 18:12 Psychosis/catatonia: Much improved. WIll [facility], monitor CK. Will continue Geodon for now. May have to d/c if NMS picture becomes clearer. 12/25/18 14:29 Psychosis/catatonia: Continued improvement. [facility]. 12/26/18 11:17 Psychosis/catatonia: Doing well. [facility]. Labs in a.m. 12/27/18 19:38 Psychosis/catatonia: Continued improvement. [facility]. Finalize d/c plan. 12/28/18 15:20 Psychosis/catatonia: Doing well. Some emergent, or more obvious psychotic sx' s. Will [facility], monitor psychosis. May need to titrate Geodon. Will consider d/ c first of the week if improved and stable. Subjective: Pt seen, discussed with staff. He looks much better today. Bright and interactive. Met with parents x 50" who report continued observation of odd perceptions and beliefs. He told them that there was "something wrong with your faces, but you're not aliens." He also stated to them that he is hearing voices, but stated, "I think everyone hears voices. I think Dr. Acosta hears voices." He continues to state that he plans to go home from the hospital and not to [facility]. Parents state that they are in agreement with this and plan to stay with him 24/7 after d/c in his apartment and then find a long-term residential program for him. Better groomed today, cooperative and pleasant. Activity and speech are nl, more fluent and spontaneous. Affect is less blunted, better modulated. Mood is "good." TP is linear, spontaneous, fluent. TC reveals no mention of AH's, IOR's or misperceptions. Objective: Vital Signs Temp Pulse Resp BP Pulse Ox 36.6 C 102 H 16 125/80 H 98 12/28/18 06:00 12/28/18 08:58 12/28/18 06:00 12/28/18 08:58 12/28/18 06:00 Laboratory Results 12/24/18 06:00 12/24/18 06:00 - Time Spent With Patient Time Spent With Patient: 55" ICD10 Worksheet Patient Problems: Problems Problem Status Onset Acute bacterial bronchitis Acute Schizoaffective disorder Chronic Agitation Acute
[2018-12-28] MEDS: LITHIUM CARBONATE ER 450 MG TAB PO SCH (21:31)
[2018-12-28] MEDS: lamoTRIgine 100 MG TAB PO SCH (21:31)
[2018-12-29] MEDS: LEVOTHYROXINE 50 MCG TAB PO SCH (05:07)
[2018-12-29] MEDS: CHOLECALCIFEROL VIT D3 1,000 UNITS TAB PO SCH (08:15)
[2018-12-29] MEDS: LABETALOL HCL 100 MG TAB PO SCH ×2 (08:15→21:01)
[2018-12-29] MEDS: FENOFIBRATE 145 MG TAB PO SCH (08:15)
[2018-12-29] MEDS: LORazepam 1 MG TAB PO SCH ×4 (08:15→21:02)
[2018-12-29] MEDS: LITHIUM CARBONATE ER 300 MG TAB PO SCH (08:15)
[2018-12-29] MEDS: ZIPRASIDONE HCL 40 MG CAP PO SCH ×2 (08:16→17:37)
[2018-12-29] MEDS: DEPLIN 15 MG PO SCH (08:16)
[2018-12-29] MEDS: HYDROCORTISONE 1% CREAM TP SCH ×2 (08:19→22:25)
[2018-12-29] MEDS: NICOTINE 21 MG/24 HR PATCH TD SCH (08:19)
--- NOTE | 2018-12-29 16:05 | ASMTBHDC ---
Notes Note: Notes: CC met with pt. and discussed his current discharge plan. Pt. agreed with current discharge plan. Pt. reports feeling "sleepy". Pt. stated he is sleeping "sporadically, haven't slept soildly". Pt. reports having "really weird dreams". Pt. reports getting enough to eat and attending groups yesterday, adding he "can't listen". Pt. reports no issues with his current medications. Pt. denied SI, HI, AVH and paranoia. Pt. stated "pretty big mistake on [place] to [place] the [place] come pick me up at outpatient". Pt. presents as alert, calm, unkempt but in a new shirt, fair eye contact, and cooperative. Staff report pt. sleeping 9 hours and being medication compliant. Per MD, pt. is to discharge Monday. Pt's parents are looking for a long-term residential program for the patient. Date Signed: 12/29/2018 04:05 PM Electronically Signed By:Kellen Huffman
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
[2018-12-29] MEDS: lamoTRIgine 100 MG TAB PO SCH (21:00)
[2018-12-29] MEDS: LITHIUM CARBONATE ER 450 MG TAB PO SCH (21:01)
[2018-12-30] MEDS: LORazepam 1 MG TAB PO SCH ×4 (05:20→20:44)
[2018-12-30] MEDS: LEVOTHYROXINE 50 MCG TAB PO SCH (05:31)
[2018-12-30] MEDS: DEPLIN 15 MG PO SCH (08:17)
[2018-12-30] MEDS: CHOLECALCIFEROL VIT D3 1,000 UNITS TAB PO SCH (08:18)
[2018-12-30] MEDS: LABETALOL HCL 100 MG TAB PO SCH ×2 (08:18→20:44)
[2018-12-30] MEDS: LITHIUM CARBONATE ER 300 MG TAB PO SCH (08:18)
[2018-12-30] MEDS: FENOFIBRATE 145 MG TAB PO SCH (08:18)
[2018-12-30] MEDS: HYDROCORTISONE 1% CREAM TP SCH ×2 (08:19→22:05)
[2018-12-30] MEDS: NICOTINE 21 MG/24 HR PATCH TD SCH (08:19)
[2018-12-30] MEDS: ZIPRASIDONE HCL 40 MG CAP PO SCH ×2 (08:20→18:15)
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
[2018-12-30] MEDS: lamoTRIgine 100 MG TAB PO SCH (20:44)
[2018-12-30] MEDS: LITHIUM CARBONATE ER 450 MG TAB PO SCH (20:44)
[2018-12-31 05:39] VITALS: BP 119/64
[2018-12-31] MEDS: LEVOTHYROXINE 50 MCG TAB PO SCH (05:50)
[2018-12-31] MEDS: LORazepam 1 MG TAB PO SCH (08:23)
[2018-12-31] MEDS: CHOLECALCIFEROL VIT D3 1,000 UNITS TAB PO SCH (08:23)
[2018-12-31] MEDS: LABETALOL HCL 100 MG TAB PO SCH (08:23)
[2018-12-31] MEDS: ZIPRASIDONE HCL 40 MG CAP PO SCH (08:23)
[2018-12-31] MEDS: FENOFIBRATE 145 MG TAB PO SCH (08:23)
[2018-12-31] MEDS: LITHIUM CARBONATE ER 300 MG TAB PO SCH (08:23)
[2018-12-31] MEDS: DEPLIN 15 MG PO SCH (08:24)
[2018-12-31] MEDS: HYDROCORTISONE 1% CREAM TP SCH (08:25)
[2018-12-31] MEDS: NICOTINE 21 MG/24 HR PATCH TD SCH (08:25)
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
== END 2018-12-31 12:35 | disposition home or self-care (01) | DRG 885 ==
LOC: EDUNIT# → BBEH 17:00
PROVIDERS: ADMIT Registered Nurse; ATTEND Registered Nurse
DX: F25.0 Schizoaffective disorder, bipolar type (principal); E03.9 Hypothyroidism, unspecified; R21 Rash and other nonspecific skin eruption; I10 Essential (primary) hypertension; J40 Bronchitis, not specified as acute or chronic
CPT/HCPCS: 80305; G0480; J3486

== ENCOUNTER 2018-12-18 23:45 | Emergency (ER) | payer OTHER ==
[2018-12-19 00:13] LABS: PLATELET COUNT 433 10^3/uL (150-400)
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
[2018-12-19] MEDS ORDERED: SKIN ADHESIVE (DERMABOND) 1 EACH TP ONE (01:21)
[2018-12-19 01:50] VITALS: BP 146/86
== END 2018-12-19 02:28 ==
PROC: 08QNXZZ Repair Right Upper Eyelid, External Approach (ICD-10-PCS; principal; 2018-12-18)
DX: S01.111A Laceration without foreign body of right eyelid and periocular area, initial encounter (principal); W19.XXXA Unspecified fall, initial encounter; Y92.531 Health care provider office as the place of occurrence of the external cause

== ENCOUNTER 2019-01-10 09:45 | Emergency (ER) | payer OTHER ==
[2019-01-10] MEDS ORDERED: LORazepam 1 MG TAB ONE (10:31)
[2019-01-10] MEDS ORDERED: LORazepam 1 MG TAB PO ONE (10:35)
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
[2019-01-10 11:37] VITALS: BP 122/78
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
--- NOTE | 2019-01-10 12:14 | ASMTTCLDSP ---
TLC Discharge Disposition Disposition: Answers: Discharge If Answers: Yes DISCHARGED: Patient/family given suicide hotline info & [employer] brochure? Disposition Notes: Notes: Pt stated commitment or ability to keep self safe, denied thoughts of self harm or harm to others. Pt expressed a desire to f/u with [facility] psychiatrist, Chuck Garcia MD. Discharge Concerns/Recommendations: Notes: In consultation with [facility] ED physician, Nj Morris MD, ED provider, MOISES Aponte,and on-call psychiatrist, Carlos Acosta MD, both concurred that pt does not appear to meet 27-65 criteria requiring psychiatric hospitalization as pt does not appear to be an imminent risk of harm to self/others/gravely disabled due to a mental illness condition. Was patient given the Answers: Not applicable Inpatient Behavioral Health Prohibited Belongings List while in the ED? Date Signed: 01/10/2019 12:14 PM Electronically Signed By:Tj Deluca
== END 2019-01-10 11:37 | disposition home or self-care (01) ==
PROC: GZ11ZZZ Psychological Tests, Personality and Behavioral (ICD-10-PCS; principal; 2019-01-10)
DX: R45.1 Restlessness and agitation (principal)
CPT/HCPCS: 80305